=== PATIENT | female | born 1975 | race African-American/Black ===

== ENCOUNTER 2018-06-05 11:24 | Emergency (ER) | payer OTHER ==
[2018-06-05 12:33] LABS: Urine Bacteria 20-50 /HPF (<20); Urine Culture Reflex Order REFLEXED; Urine RBC <5 /HPF (NONE SEEN)
[2018-06-05 12:33] LABS: Absolute Lymphocytes (CBC) 1.7 K/uL (0.7-4.9); Absolute Monocytes 0.8 K/uL (0.1-1.3); Absolute Neutrophil 5.6 K/uL (1.8-8.0); Eosinophils % 2.7 % (0-4.4); Monocytes % 9.4 % (3.3-12.3); RBC Red Blood Cell Count 4.69 M/uL (3.86-4.86)
[2018-06-05 12:38] LABS: BUN Blood Urea Nitrogen 13 mg/dL (7-18); Bicarbonate 29 mmol/L (21-32); Glucose Level 68 mg/dL (74-106); Potassium 3.9 mmol/L (3.5-5.1); Sodium Level 140 mmol/L (136-145)
--- NOTE | 2018-06-05 13:02 | RAD REPORT ---
EXAM DESCRIPTION: US - Transvaginal Study Probe - 06/05/2018 12:54 pm CLINICAL HISTORY: ABD PAIN Pelvic pain. COMPARISON: TRANSVAGINAL STUDY PROBE dated 07/08/2012 FINDINGS: The uterus is normal in size, shape and echotexture. The uterus measures 8.6 x 5.4 x 3.5 c m The endometrial stripe measures 9 mm, normal. Cystic structure is seen in the left adnexa measuring 8.4 x 7.2 x 6.9 cm. This lesion is somewhat poo rly visualized due to bowel gas. Mild tubular structure is seen in the right adnexa raising the possibility of a hydrosalpinx. Neither ovary is well identified sonographically. No significant pelvic ascites. IMPRESSION: Cystic structure in the left adnexa measuring 8 cm is noted, incompletely assessed.Neith er ovary is well visualized. Tubular structure in the right adnexa may represent a hydrosalpinx. Consider CT abdomen pelvis with contrast for further assessment these findings.
[2018-06-05] MEDS ORDERED: AZITHROMYCIN 250 MG TAB ONE (13:54)
[2018-06-05] MEDS ORDERED: LIDOCAINE 1% MPF 5 ML VIAL ONE (13:54)
[2018-06-05] MEDS ORDERED: CEFTRIAXONE 1000 MG/VIAL ONE (13:55)
[2018-06-05] MEDS ORDERED: KETOROLAC 30 MG/ML INJ ONE (13:56)
--- NOTE | 2018-06-05 14:06 | RAD REPORT ---
EXAM DESCRIPTION: CT - Abdomen Pelvis W Contrast - 06/05/2018 1:28 pm CLINICAL HISTORY: Abdominal pain/right-sided pain COMPARISON: June 05, 2017 pelvic ultrasound TECHNIQUE: Computed axial tomography of the abdomen pelvis was obtained. 100 cc Isovue-300 was admin istered intravenously. Oral contrast was not requested which limits evaluation of bowel. All CT scans are performed using dose optimization technique as appropriate and may include automated exposure control or mA/KV adjustment according to patient size. FINDINGS: The liver, spleen, pancreas, adrenal and kidneys appear unremarkable. A 9 centimeter cyst is present within the left adnexa. Left hydrosalpinx is also present. No signific ant free fluid is noted. Essure coils are present. IMPRESSION: 9 centimeter left ovarian cyst with left hydrosalpinx . Followup ultrasound in 3 months is recommended for re-evaluation
--- NOTE | 2018-06-05 14:16 | ER ---
Nurse's Notes [facility] Name: Florentino Chavez Age: 42 yrs Sex: Female : 1975 Arrival Date: 06/05/2018 Time: 11:27 Bed 26 Private MD: Diagnosis: Unspecified ovarian cysts;Urinary tract infection, site not specified;Female pelvic inflammatory disease, unspecified Presentation: 06/05 11:33 Presenting complaint: Patient states: im having pain on the R side of my abd since last hj week; denies fever and chills; reports nausea; denies diarrhea and constipation;. Transition of care: patient was not received from another setting of care. Onset of symptoms was June 05, 2018. Risk Assessment: Do you want to hurt yourself or someone else? Patient reports no desire to harm self or others. Initial Sepsis Screen: Does the patient meet any 2 criteria? No. Patient's initial sepsis screen is negative. Does the patient have a suspected source of infection? No. Patient's initial sepsis screen is negative. Care prior to arrival: None. 11:33 Method Of Arrival: Ambulatory 11:33 Acuity: MARITA 3 hj Triage Assessment: 11:36 General: Appears in no apparent distress. Behavior is calm, cooperative, appropriate hj for age. Pain: Complains of pain in abdomen Pain currently is 9 out of 10 on a pain scale. GI: Reports lower abdominal pain, cramping, nausea. 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 - Social history:: Smoking status: Patient uses tobacco products, Patient/guardian denies using alcohol. - Ebola Screening: : Patient negative for fever greater than or equal to 101.5 degrees Fahrenheit, and additional compatible Ebola Virus Disease symptoms Patient denies exposure to infectious person Patient denies travel to an Ebola-affected area in the 21 days before illness onset. Screenin:36 Abuse screen: Denies threats or abuse. Denies injuries from another. Nutritional hj screening: No deficits noted. Tuberculosis screening: No symptoms or risk factors identified. Fall Risk None identified. Assessment: 11:37 GI: Bowel sounds hj 11:59 General: Appears in no apparent distress. comfortable, Behavior is calm, cooperative, aj appropriate for age. Pain: Complains of pain in suprapubic area and right inguinal area. Neuro: Level of Consciousness is awake, alert, obeys commands, Oriented to person, place, time, situation, Appropriate for age. Respiratory: Airway is patent Respiratory effort is even, unlabored, Respiratory pattern is regular, symmetrical. GI: Abd is soft Abdomen is tender to palpation in suprapubic area, right lower quadrant and left lower quadrant. : Reports burning with urination, discharge, white, yellow, pain in suprapubic area. Derm: Skin is intact, is healthy with good turgor, Skin is pink, warm \T\ dry. normal. Vital Signs: 11:37 BP 145 / 89; Pulse 81; Resp 18; Temp 97.4(TE); Pulse Ox 100% on R/A; Weight 57.61 kg; hj Height 5 ft. 2 in. (157.48 cm); Pain 9/10; 12:44 BP 142 / 98; Pulse 70; Resp 20; Pulse Ox 100% on R/A; aj 14:03 BP 142 / 91; Pulse 72; Resp 20; Pulse Ox 99% on R/A; aj 11:37 Body Mass Index 23.23 (57.61 kg, 157.48 cm) ED Course: 11:27 Patient arrived in ED. mr 11:34 Triage completed. hj 11:37 Arm band placed on left wrist. hj 11:38 Patient has correct armband on for positive identification. Placed in gown. Bed in low hj position. Call light in reach. Side rails up X 1. 11:41 Pauline Nolan, PROSPER is Primary Nurse. aj 11:41 Homa Velez FNP-C is PHCP. kb 11:41 Juan Jose Oconnell MD is Attending Physician. kb 12:18 Inserted saline lock: 22 gauge in right antecubital area, using aseptic technique. aj Blood collected. 12:18 CBC with Diff Sent. aj 12:19 Basic Metabolic Panel Sent. aj 12:19 Urine Microscopic Only Sent. aj 12:19 Urine Culture Sent. aj 12:20 Patient taken to ultrasound. aj 12:48 GC (Aime/Chl) Probe URINE Sent. aj 12:49 CBC with Diff Sent. aj 12:55 US Transvaginal Study (Probe) In Process Unspecified. EDMS 13:25 CT completed. Patient tolerated procedure well. Patient moved to CT via wheelchair. Patient moved back from CT. 13:33 CT Abd/Pelvis - W/Contrast In Process Unspecified. EDMS 14:51 No provider procedures requiring assistance completed. IV discontinued, intact, aj bleeding controlled, No redness/swelling at site. Pressure dressing applied. Administered Medications: 13:36 CANCELLED (Duplicate Order): AZITHromycin 1 grams PO once aj 13:37 CANCELLED (Duplicate Order): TORadol 30 mg IVP once aj 13:38 CANCELLED (order changed): Doxycycline 100 mg PO once aj 13:57 Drug: Zithromax 1 grams Route: PO; aj 14:53 Follow up: Response: No adverse reaction aj 13:57 Drug: Rocephin (cefTRIAXone) 1 grams Route: IM; Site: right gluteus; aj 14:53 Follow up: Response: No adverse reaction aj 13:58 Drug: TORadol 30 mg Route: IVP; Site: right antecubital; aj 14:53 Follow up: Response: No adverse reaction aj Outcome: 14:16 Discharge ordered by . kb 14:51 Discharged to home ambulatory. aj 14:51 Condition: good 14:51 Discharge instructions given to patient, Instructed on discharge instructions, follow up and referral plans. medication usage, safe sex practices, Demonstrated understanding of instructions, follow-up care, medications, Prescriptions given X 2. 14:54 Patient left the ED. aj Signatures: Dispatcher [employer] EDMS Homa Velez, GREASE MAKERShaileshC GREASE MAKER-Pauline Mars RN RN Slime Lopez Susan sj Joaquin, Henry, RN RN hj Corrections: (The following items were deleted from the chart) 11:39 11:37 Pulse 81bpm; Resp 18bpm; Pulse Ox 100% RA; Temp 97.4F Temporal; 57.61 kg; Height hj 5 ft. 2 in.; BMI: 23.2; Pain 9/10; hj 12:45 12:44 BP 166 / 103; Pulse 70bpm; Resp 20bpm; Pulse Ox 100% RA; aj aj
--- NOTE | 2018-06-05 14:17 | EDPHYS ---
Physician Documentation [facility] Name: Florentino Chavez Age: 42 yrs Sex: Female : 1975 Arrival Date: 06/05/2018 Time: 11:27 Bed 26 Private MD: ED Physician Juan Jose Oconnell HPI: 06/05 12:12 This 42 yrs old Black Female presents to ER via Ambulatory with complaints of Abdominal kb Pain. 12:12 The patient presents with abdominal pain right lower quadrant. Onset: The kb symptoms/episode began/occurred 1.5 week(s) ago. The symptoms do not radiate. Associated signs and symptoms: Pertinent positives: dysuria, nausea, Pertinent negatives: anorexia, blood in stools, chest pain, constipation, diarrhea, fever, headache, hematuria, palpitations, shortness of breath, vaginal discharge, vomiting, vomiting blood. The symptoms are described as constant. Modifying factors: The symptoms are alleviated by nothing, the symptoms are aggravated by pressure. Severity of pain: At its worst the pain was moderate in the emergency department the pain is unchanged. The patient has experienced a previous episode. The patient has not recently seen a physician. Pt states she has had RLQ pain for a week and a half. Had appt with PCP at 1100 today, but got there at 1106 and they wouldn't see her so she came here to be evaluated. Reports nausea and dysuria that started this morning. Denies fever. . 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 - Social history:: Smoking status: Patient uses tobacco products, Patient/guardian denies using alcohol. - Ebola Screening: : Patient negative for fever greater than or equal to 101.5 degrees Fahrenheit, and additional compatible Ebola Virus Disease symptoms Patient denies exposure to infectious person Patient denies travel to an Ebola-affected area in the 21 days before illness onset. ROS: 12:12 Constitutional: Negative for fever, chills, and weight loss, ENT: Negative for injury, kb pain, and discharge, Neck: Negative for injury, pain, and swelling, Cardiovascular: Negative for chest pain, palpitations, and edema, Respiratory: Negative for shortness of breath, cough, wheezing, and pleuritic chest pain, Back: Negative for injury and pain, MS/Extremity: Negative for injury and deformity, Skin: Negative for injury, rash, and discoloration, Neuro: Negative for headache, weakness, numbness, tingling, and seizure. 12:12 Abdomen/GI: Positive for abdominal pain, nausea, Negative for vomiting, diarrhea, constipation, abdominal cramps, abdominal distension, anorexia. 12:12 : Positive for burning with urination. Exam: 12:15 Constitutional: This is a well developed, well nourished patient who is awake, alert, kb and in no acute distress. Head/Face: Normocephalic, atraumatic. ENT: Nares patent. No nasal discharge, no septal abnormalities noted. Tympanic membranes are normal and external auditory canals are clear. Oropharynx with no redness, swelling, or masses, exudates, or evidence of obstruction, uvula midline. Mucous membranes moist. Neck: Trachea midline, no thyromegaly or masses palpated, and no cervical lymphadenopathy. Supple, full range of motion without nuchal rigidity, or vertebral point tenderness. No Meningismus. Chest/axilla: Normal chest wall appearance and motion. Nontender with no deformity. No lesions are appreciated. Cardiovascular: Regular rate and rhythm with a normal S1 and S2. No gallops, murmurs, or rubs. Normal PMI, no JVD. No pulse deficits. Respiratory: Lungs have equal breath sounds bilaterally, clear to auscultation and percussion. No rales, rhonchi or wheezes noted. No increased work of breathing, no retractions or nasal flaring. Back: No spinal tenderness. No costovertebral tenderness. Full range of motion. Skin: Warm, dry with normal turgor. Normal color with no rashes, no lesions, and no evidence of cellulitis. MS/ Extremity: Pulses equal, no cyanosis. Neurovascular intact. Full, normal range of motion. Neuro: Awake and alert, GCS 15, oriented to person, place, time, and situation. Cranial nerves II-XII grossly intact. Motor strength 5/5 in all extremities. Sensory grossly intact. Cerebellar exam normal. Normal gait. 12:15 Abdomen/GI: Inspection: abdomen appears normal, Bowel sounds: normal, Palpation: soft, in all quadrants, mild abdominal tenderness, in the right lower quadrant and left lower quadrant, moderate abdominal tenderness, in the suprapubic area. Vital Signs: 11:37 BP 145 / 89; Pulse 81; Resp 18; Temp 97.4(TE); Pulse Ox 100% on R/A; Weight 57.61 kg; hj Height 5 ft. 2 in. (157.48 cm); Pain 9/10; 12:44 BP 142 / 98; Pulse 70; Resp 20; Pulse Ox 100% on R/A; aj 14:03 BP 142 / 91; Pulse 72; Resp 20; Pulse Ox 99% on R/A; aj 11:37 Body Mass Index 23.23 (57.61 kg, 157.48 cm) hj MDM: 11:41 Patient medically screened. kb 12:15 Data reviewed: vital signs, nurses notes. Data interpreted: Pulse oximetry: on room air kb is 100 %. Interpretation: normal. 14:12 Counseling: I had a detailed discussion with the patient and/or guardian regarding: the kb historical points, exam findings, and any diagnostic results supporting the discharge/admit diagnosis, lab results, radiology results, the need for outpatient follow up, an OB/Gyne specialist, to return to the emergency department if symptoms worsen or persist or if there are any questions or concerns that arise at home. 06/05 11:52 Order name: CBC with Diff; Complete Time: 12:58 kb 06/05 11:52 Order name: Basic Metabolic Panel; Complete Time: 12:39 kb 06/05 11:58 Order name: Urine Microscopic Only; Complete Time: 12:36 iw 06/05 11:58 Order name: Urine Culture iw 06/05 12:25 Order name: Urine Dipstick--Ancillary (enter results) iw 06/05 12:36 Order name: GC (Aime/Chl) Probe URINE EDMS 06/05 11:52 Order name: US Transvaginal Study (Probe); Complete Time: 13:09 kb 06/05 13:10 Order name: CT Abd/Pelvis - W/Contrast; Complete Time: 14:08 kb 06/05 11:52 Order name: Urine Dipstick-Ancillary (obtain specimen); Complete Time: 12:18 kb 06/05 11:52 Order name: Urine Test (obtain specimen); Complete Time: 12:18 kb 06/05 11:52 Order name: IV Start; Complete Time: 12:18 kb Administered Medications: 13:36 CANCELLED (Duplicate Order): AZITHromycin 1 grams PO once aj 13:37 CANCELLED (Duplicate Order): TORadol 30 mg IVP once aj 13:38 CANCELLED (order changed): Doxycycline 100 mg PO once aj 13:57 Drug: Zithromax 1 grams Route: PO; aj 14:53 Follow up: Response: No adverse reaction aj 13:57 Drug: Rocephin (cefTRIAXone) 1 grams Route: IM; Site: right gluteus; aj 14:53 Follow up: Response: No adverse reaction aj 13:58 Drug: TORadol 30 mg Route: IVP; Site: right antecubital; aj 14:53 Follow up: Response: No adverse reaction aj Disposition: 17:58 Co-signature as Attending Physician, Juan Jose Oconnell MD Available for consultation at ps1 all times. . Disposition: 06/05/18 14:16 Discharged to Home. Impression: Unspecified ovarian cysts, Urinary tract infection, site not specified, Female pelvic inflammatory disease, unspecified. - Condition is Stable. - Discharge Instructions: Urinary Tract Infection, Adult, [id number], Ovarian Cyst, [id number], Pelvic Inflammatory Disease, [id number]-[id number]. - Prescriptions for Doxycycline Hyclate 100 mg Oral Tablet - take 1 tablet by ORAL route every 12 hours; 20 tablet. Diclofenac Sodium 75 mg Oral Tablet, Delayed Release (E.C.) - take 1 tablet by ORAL route 2 times per day As needed; 30 tablet. - Medication Reconciliation Form, Thank You Letter, Antibiotic Education, Prescription Opioid Use form. - Follow up: Emergency Department; When: As needed; Reason: Worsening of condition. Follow up: Private Physician; When: 2 - 3 days; Reason: Recheck today's complaints, Continuance of care, Re-evaluation by your physician. Signatures: Dispatcher [employer] Homa Alejo, ROSELINE CROSS-Pauline Mars RN RN aj Joaquin, Henry, RN RN hj Singer, Phillip, MD MD ps1 Corrections: (The following items were deleted from the chart) 13:36 13:36 AZITHromycin 1 grams PO once ordered. aj aj 13:37 13:36 TORadol 30 mg IVP once ordered. aj aj 13:38 13:36 Doxycycline 100 mg PO once ordered. aj aj 14:19 14:16 06/05/2018 14:16 Discharged to Home. Impression: Unspecified ovarian cysts; kb Urinary tract infection, site not specified. Condition is Stable. Forms are Medication Reconciliation Form, Thank You Letter, Antibiotic Education, Prescription Opioid Use. Follow up: Emergency Department; When: As needed; Reason: Worsening of condition. Follow up: Private Physician; When: 2 - 3 days; Reason: Recheck today's complaints, Continuance of care, Re-evaluation by your physician. kb 14:54 14:19 06/05/2018 14:16 Discharged to Home. Impression: Unspecified ovarian cysts; aj Urinary tract infection, site not specified; Female pelvic inflammatory disease, unspecified. Condition is Stable. Discharge Instructions: Urinary Tract Infection, Adult, [id number], Ovarian Cyst, [id number], Pelvic Inflammatory Disease, [id number]. Prescriptions for Doxycycline Hyclate 100 mg Oral Tablet - take 1 tablet by ORAL route every 12 hours; 20 tablet, Diclofenac Sodium 75 mg Oral Tablet, Delayed Release (E.C.) - take 1 tablet by ORAL route 2 times per day As needed; 30 tablet. and Forms are Medication Reconciliation Form, Thank You Letter, Antibiotic Education, Prescription Opioid Use. Follow up: Emergency Department; When: As needed; Reason: Worsening of condition. Follow up: Private Physician; When: 2 - 3 days; Reason: Recheck today's complaints, Continuance of care, Re-evaluation by your physician. kb
[2018-06-05 15:17] VITALS: TEMP 97.4
[2018-06-05 15:20] VITALS: BP 142/91; O2SAT 99
[2018-06-05 15:46] LABS: Urine Blood TRACE (NEG); Urine Glucose NEGATIVE (NEG); Urine Protein NEGATIVE (NEG)
[2018-06-08 04:09] LABS: C.trachomatis RNA,TMA Not Detected (Not Detected)
== END 2018-06-05 14:54 | disposition home or self-care (01) ==
LOC: ER 11:24
DX: N83.202 Unspecified ovarian cyst, left side (principal); N73.9 Female pelvic inflammatory disease, unspecified; N39.0 Urinary tract infection, site not specified; I10 Essential (primary) hypertension; Z88.0 Allergy status to penicillin
CPT/HCPCS: 36415; 74177; 76830; 80048; 81003; 81015; 85025; 87086; 87088; 87490; 87590; 96372; 96374; 99284; Q9967

== ENCOUNTER 2018-08-11 15:06 | Emergency (ER) | payer OTHER ==
--- OUTSIDE RECORDS SUMMARY | 2018-08-11 15:08 | XMS REPORT ---
:1975 [facility] Address [address] [place] [address] Care Team Providers Name Role Phone Unavailable Unavailable Unavailable Problems This patient has no known problems. Allergies, Adverse Reactions, Alerts This patient has no known allergies or adverse reactions. Medications This patient has no known medications.
[2018-08-11] MEDS ORDERED: NA CHLORIDE 0.9% 1,000 ML ONE (16:39)
[2018-08-11 17:05] LABS: Absolute Lymphocytes (CBC) 0.5 K/uL (0.7-4.9); Absolute Monocytes 0.6 K/uL (0.1-1.3); Absolute Neutrophil 8.4 K/uL (1.8-8.0); Basophils % 0.5 % (0-1.3); Hematocrit 46.6 % (36.0-45.0); Lymphocytes % 4.8 % (15.3-44.8); MPV 9.2 fL (7.6-11.3); Monocytes % 6.5 % (3.3-12.3); RBC Red Blood Cell Count 5.35 M/uL (3.86-4.86)
--- NOTE | 2018-08-11 17:16 | RAD REPORT ---
EXAM DESCRIPTION: Shannan Single View08/11/2018 4:41 pm CLINICAL HISTORY: Chest pain COMPARISON: 2012 FINDINGS: The lungs appear clear of acute infiltrate. The heart is normal size IMPRESSION: No acute abnormalities displayed
[2018-08-11 17:21] LABS: Protime INR 1.08
[2018-08-11 17:22] LABS: ALT/SGPT 13 U/L (12-78); AST/SGOT 15 U/L (15-37); Albumin 4.5 g/dL (3.4-5.0); Alkaline Phosphatase 105 U/L (45-117); BUN Blood Urea Nitrogen 10 mg/dL (7-18); Bicarbonate 25 mmol/L (21-32); Bilirubin Direct 0.1 mg/dL (0-0.2); Bilirubin Total 0.4 mg/dL (0.2-1.0); Glucose Level 89 mg/dL (74-106); Magnesium 2.1 mg/dL (1.8-2.4); NT PRO-BNP 21 pg/mL (<125); Potassium 3.2 mmol/L (3.5-5.1); Protein, Total 9.2 g/dL (6.4-8.2); Sodium Level 133 mmol/L (136-145); Troponin (Emerg Dept Use Only) < 0.02 ng/mL (0.0-0.045)
[2018-08-11] MEDS ORDERED: FENTANYL CITR 100 MCG/2 ML ONE (18:24)
[2018-08-11] MEDS ORDERED: POTASSIUM CL SA 10 MEQ TAB PO ONE (18:24)
[2018-08-11] MEDS ORDERED: MEPERIDINE HCL 25 MG/0.5 ML ONE (18:56)
[2018-08-11] MEDS ORDERED: ONDANSETRON 4 MG/2 ML VIAL ONE (18:56)
[2018-08-11 19:35] LABS: Blood Morphology Comment NOT SEEN (NOT SEEN); Platelet Estimate ADEQ
--- NOTE | 2018-08-11 20:01 | ER ---
Nurse's Notes [facility] Name: Florentino Chavez Age: 42 yrs Sex: Female : 1975 Arrival Date: 08/11/2018 Time: 15:10 Bed 28 Private MD: Brandon Guardado E Diagnosis: Viral infection, unspecified;Atypical Chest pain Presentation: 08/11 15:28 Presenting complaint: Patient states: midsternal CP radiating through back, constant iw pain, also has vomiting, diarrhea, body aches X 3 days, denies cough, congestion. Transition of care: patient was not received from another setting of care. Onset of symptoms was August 08, 2018. Risk Assessment: Do you want to hurt yourself or someone else? Patient reports no desire to harm self or others. Initial Sepsis Screen: Does the patient meet any 2 criteria? No. Patient's initial sepsis screen is negative. Does the patient have a suspected source of infection? No. Patient's initial sepsis screen is negative. Care prior to arrival: None. 15:28 Method Of Arrival: Ambulatory iw 15:28 Acuity: MARITA 3 iw Triage Assessment: 18:20 Headache History: The patient has had previous headaches and this one is similar to mg2 previous episodes. General: Behavior is calm, cooperative. Pain: Also complains of no other associated symptoms. Pain: Complains of pain in whole body. 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 - Ebola Screening: : Patient negative for fever greater than or equal to 101.5 degrees Fahrenheit, and additional compatible Ebola Virus Disease symptoms Patient denies exposure to infectious person Patient denies travel to an Ebola-affected area in the 21 days before illness onset No symptoms or risks identified at this time. - Social history:: Smoking status: unknown. Screenin:19 Abuse screen: Denies threats or abuse. Denies injuries from another. Nutritional mg2 screening: No deficits noted. Tuberculosis screening: No symptoms or risk factors identified. Fall Risk IV access (20 points). Assessment: 18:17 General: Appears in no apparent distress. comfortable, Behavior is calm, cooperative. mg2 Pain: Complains of pain in chest and abdomen Pain does not radiate. Pain currently is 6 out of 10 on a pain scale. Quality of pain is described as aching, Pain began gradually, 1 day ago. Is intermittent. Neuro: Level of Consciousness is awake, alert, obeys commands, Oriented to person, place, time, situation. Neuro: Reports weakness. Cardiovascular: Capillary refill < 3 seconds Patient's skin is warm and dry. Respiratory: Reports cough that is congestion Airway is patent Respiratory effort is even, unlabored, Respiratory pattern is regular, symmetrical. GI: Reports diarrhea, vomiting. : No signs and/or symptoms were reported regarding the genitourinary system. EENT: No signs and/or symptoms were reported regarding the EENT system. Derm: Skin is intact, is healthy with good turgor, Skin is pink, warm \T\ dry. normal. Musculoskeletal: Circulation, motion, and sensation intact. Capillary refill < 3 seconds. 20:32 Reassessment: Patient denies pain at this time. Patient states feeling better. Patient mg2 states symptoms have improved. Vital Signs: 15:30 BP 121 / 96; Pulse 100; Resp 16; Temp 98.6; Pulse Ox 100% on R/A; Weight 58.97 kg; iw Height 5 ft. 2 in. (157.48 cm); Pain 9/10; 17:09 BP 141 / 89; Pulse 82; Resp 16; Pulse Ox 100% ; lt1 18:22 BP 122 / 89; Pulse 89; Resp 18; Pulse Ox 100% on R/A; Pain 4/10; mg2 20:32 BP 123 / 78; Pulse 80; Resp 18; Pulse Ox 100% on R/A; Pain 0/10; mg2 15:30 Body Mass Index 23.78 (58.97 kg, 157.48 cm) iw ED Course: 15:10 Patient arrived in ED. as 15:11 Brandon Guardado MD is Private Physician. as 15:29 Triage completed. iw 16:00 Shaun Mckeon PA is PHCP. jr8 16:00 Alonso Briscoe MD is Attending Physician. jr8 16:15 Spenser Sawyer RN is Primary Nurse. mg2 16:34 EKG done, by technician anatomic pathology. reviewed by Shaun RIVERA. 3 16:39 X-ray completed. Portable x-ray completed in exam room. Patient tolerated procedure ml well. 16:42 XRAY Chest (1 view) In Process Unspecified. EDMS 18:19 No provider procedures requiring assistance completed. Inserted saline lock: 20 gauge mg2 in left antecubital area, using aseptic technique. Blood collected. 18:19 Patient has correct armband on for positive identification. Pulse ox on. NIBP on. Door mg2 closed. Warm blanket given. 18:20 Arm band placed on. mg2 20:00 Brandon Guardado MD is Referral Physician. jr8 20:32 IV discontinued, intact, bleeding controlled, No redness/swelling at site. Pressure mg2 dressing applied. Administered Medications: 16:43 Drug: NS 0.9% 1000 ml Route: IV; Rate: 1000 ml; Site: left femoral; mg2 18:49 Follow up: Response: No adverse reaction; IV Status: Completed infusion mg2 18:17 Drug: fentaNYL (PF) 25 mcg Route: IVP; Site: left antecubital; mg2 18:49 Follow up: Response: No adverse reaction; Marked relief of symptoms mg2 18:17 Drug: Potassium Chloride 40 mEq Route: PO; mg2 18:49 Follow up: Response: No adverse reaction; Marked relief of symptoms mg2 18:48 Drug: Zofran 4 mg Route: IVP; Site: left antecubital; mg2 20:33 Follow up: Response: No adverse reaction; Marked relief of symptoms mg2 18:49 Drug: Demerol 25 mg Route: IVP; Site: left antecubital; mg2 20:33 Follow up: Response: No adverse reaction; Marked relief of symptoms mg2 Outcome: 20:01 Discharge ordered by . jr8 20:32 Discharged to home ambulatory. mg2 20:32 Condition: stable 20:32 Discharge instructions given to patient, Instructed on discharge instructions, follow up and referral plans. medication usage, Demonstrated understanding of instructions, follow-up care, medications, Prescriptions given X 3. 20:33 Patient left the ED. mg2 Signatures: Dispatcher [employer] EDMS Evelia Rizo Irene, RN RN iw Lopez, Melissa ml Roszak, Josh, PA PA jr8 Spenser Sawyer, RN RN mg2 Ofelia Collier sm3 Tete Olivarez 1
--- NOTE | 2018-08-11 20:01 | EDPHYS ---
Physician Documentation [facility] Name: Florentino Chavez Age: 42 yrs Sex: Female : 1975 Arrival Date: 08/11/2018 Time: 15:10 Bed 28 Private MD: Brandon Guardado E ED Physician Alonso Briscoe HPI: 08/11 19:27 This 42 yrs old Black Female presents to ER via Ambulatory with complaints of Headache, jr8 Chest Congestion, Back Pain, Vomiting/Diarrhea. 19:27 Patient stated that her child was ill recently and had chest pain and body aches. jr8 Stated that she now is having chest pain going to back, whole body hurts, and is having n/v/d . Severity of symptoms: At their worst the symptoms were moderate in the emergency department the symptoms are unchanged. The patient has not experienced similar symptoms in the past. The patient has not recently seen a physician. 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 - Ebola Screening: : Patient negative for fever greater than or equal to 101.5 degrees Fahrenheit, and additional compatible Ebola Virus Disease symptoms Patient denies exposure to infectious person Patient denies travel to an Ebola-affected area in the 21 days before illness onset No symptoms or risks identified at this time. - Social history:: Smoking status: unknown. ROS: 19:27 Eyes: Negative for injury, pain, redness, and discharge, ENT: Negative for injury, jr8 pain, and discharge, Neck: Negative for injury, pain, and swelling, Respiratory: Negative for shortness of breath, cough, wheezing, and pleuritic chest pain, Back: Negative for injury and pain, MS/Extremity: Negative for injury and deformity, Skin: Negative for injury, rash, and discoloration. 19:27 Cardiovascular: Positive for chest pain, Negative for edema, orthopnea, palpitations, paroxysmal nocturnal dyspnea. 19:27 Respiratory: Positive for cough, Negative for dyspnea on exertion, shortness of breath, sputum production, wheezing. 19:27 Abdomen/GI: Positive for nausea, vomiting, and diarrhea, abdominal cramps, Negative for abdominal pain, abdominal distension, anorexia, dysphagia, hematemesis, black/tarry stool, rectal pain, rectal bleeding, bowel incontinence, flatulence. 19:27 Neuro: Positive for headache. Exam: 19:27 Eyes: Pupils equal round and reactive to light, extra-ocular motions intact. Lids and jr8 lashes normal. Conjunctiva and sclera are non-icteric and not injected. Cornea within normal limits. Periorbital areas with no swelling, redness, or edema. ENT: Nares patent. No nasal discharge, no septal abnormalities noted. Tympanic membranes are normal and external auditory canals are clear. Oropharynx with no redness, swelling, or masses, exudates, or evidence of obstruction, uvula midline. Mucous membranes moist. Neck: Trachea midline, no thyromegaly or masses palpated, and no cervical lymphadenopathy. Supple, full range of motion without nuchal rigidity, or vertebral point tenderness. No Meningismus. Cardiovascular: Regular rate and rhythm with a normal S1 and S2. No gallops, murmurs, or rubs. Normal PMI, no JVD. No pulse deficits. Respiratory: Lungs have equal breath sounds bilaterally, clear to auscultation and percussion. No rales, rhonchi or wheezes noted. No increased work of breathing, no retractions or nasal flaring. Abdomen/GI: Soft, non-tender, with normal bowel sounds. No distension or tympany. No guarding or rebound. No evidence of tenderness throughout. Back: No spinal tenderness. No costovertebral tenderness. Full range of motion. Skin: Warm, dry with normal turgor. Normal color with no rashes, no lesions, and no evidence of cellulitis. MS/ Extremity: Pulses equal, no cyanosis. Neurovascular intact. Full, normal range of motion. Neuro: Awake and alert, GCS 15, oriented to person, place, time, and situation. Cranial nerves II-XII grossly intact. Motor strength 5/5 in all extremities. Sensory grossly intact. Cerebellar exam normal. Normal gait. Vital Signs: 15:30 BP 121 / 96; Pulse 100; Resp 16; Temp 98.6; Pulse Ox 100% on R/A; Weight 58.97 kg; iw Height 5 ft. 2 in. (157.48 cm); Pain 9/10; 17:09 BP 141 / 89; Pulse 82; Resp 16; Pulse Ox 100% ; lt1 18:22 BP 122 / 89; Pulse 89; Resp 18; Pulse Ox 100% on R/A; Pain 4/10; mg2 20:32 BP 123 / 78; Pulse 80; Resp 18; Pulse Ox 100% on R/A; Pain 0/10; mg2 15:30 Body Mass Index 23.78 (58.97 kg, 157.48 cm) iw MDM: 16:00 Patient medically screened. jr8 20:00 Data reviewed: vital signs, nurses notes, lab test result(s), EKG, radiologic studies, jr8 plain films. Data interpreted: Pulse oximetry: on room air is 100 %. Interpretation: normal. Counseling: I had a detailed discussion with the patient and/or guardian regarding: the historical points, exam findings, and any diagnostic results supporting the discharge/admit diagnosis, lab results, radiology results, the need for outpatient follow up, a family practitioner, to return to the emergency department if symptoms worsen or persist or if there are any questions or concerns that arise at home. Response to treatment: the patient's symptoms have markedly improved after treatment, patient is well hydrated. 08/11 16:22 Order name: Basic Metabolic Panel [facility] 08/11 16:22 Order name: CBC with Diff [facility] 08/11 16:22 Order name: LFT's [facility] 08/11 16:22 Order name: Magnesium; Complete Time: 18: [facility] 08/11 16:22 Order name: NT PRO-BNP; Complete Time: 18: [facility] 08/11 16:22 Order name: PT-INR; Complete Time: 18:01 [facility] 08/11 16:22 Order name: Troponin (emerg Dept Use Only); Complete Time: 18: [facility] 08/11 16:22 Order name: XRAY Chest (1 view); Complete Time: 18:01 [facility] 08/11 16:22 Order name: Flu; Complete Time: 18:01 [facility] 08/11 16:23 Order name: Basic Metabolic Panel; Complete Time: 18:01 EDMS 08/11 16:23 Order name: CBC with Automated Diff; Complete Time: 20:00 EDMS 08/11 16:23 Order name: Liver (Hepatic) Function; Complete Time: 18:01 EDLA 08/11 19:35 Order name: Manual Differential; Complete Time: 20:00 [facility] 08/11 16:22 Order name: EKG; Complete Time: 16:23 [facility] 08/11 16:22 Order name: Cardiac monitoring; Complete Time: 16:44 [facility] 08/11 16:22 Order name: EKG - Nurse/Tech; Complete Time: : [facility] 08/11 16:22 Order name: IV Saline Lock; Complete Time: : jr8 08/11 16:22 Order name: Labs collected and sent; Complete Time: : [facility] 08/11 16:22 Order name: O2 Per Protocol; Complete Time: [facility] 08/11 16:22 Order name: O2 Sat Monitoring; Complete Time: : jr Administered Medications: 16:43 Drug: NS 0.9% 1000 ml Route: IV; Rate: 1000 ml; Site: left femoral; mg2 18:49 Follow up: Response: No adverse reaction; IV Status: Completed infusion mg2 18:17 Drug: fentaNYL (PF) 25 mcg Route: IVP; Site: left antecubital; mg2 18:49 Follow up: Response: No adverse reaction; Marked relief of symptoms mg2 18:17 Drug: Potassium Chloride 40 mEq Route: PO; mg2 18:49 Follow up: Response: No adverse reaction; Marked relief of symptoms mg2 18:48 Drug: Zofran 4 mg Route: IVP; Site: left antecubital; mg2 20:33 Follow up: Response: No adverse reaction; Marked relief of symptoms mg2 18:49 Drug: Demerol 25 mg Route: IVP; Site: left antecubital; mg2 20:33 Follow up: Response: No adverse reaction; Marked relief of symptoms mg2 Disposition: 08/11/18 20:01 Discharged to Home. Impression: Viral infection, unspecified, Atypical Chest pain. - Condition is Stable. - Discharge Instructions: Viral Gastroenteritis, Adult. - Prescriptions for Bentyl 20 mg Oral Tablet - take 1 tablet by ORAL route every 6 hours As needed; 20 tablet. Tramadol 50 mg Oral Tablet - take 1 tablet by ORAL route every 8 hours as needed; 12 tablet. promethazine 25 mg Oral Tablet - take 1 tablet by ORAL route every 6 hours As needed; 20 tablet. - Medication Reconciliation Form, Thank You Letter, Antibiotic Education, Prescription Opioid Use form. - Follow up: Brandon Guardado MD; When: 1 - 2 days; Reason: Recheck today's complaints, Continuance of care, Re-evaluation by your physician. - Problem is new. - Symptoms have improved. Addendum: 08/14/2018 10:15 Co-signature as Attending Physician, Alonso Briscoe MD I agree with the assessment and c kaminski plan of care. Signatures: Dispatcher [employer] EDLA Alonso Briscoe MD MD cha Williams, Irene, PROSPER RN iw Shaun Mckeon PA PA jr8 Spenser Sawyer RN RN mg2 Corrections: (The following items were deleted from the chart) 08/11 20:01 20:01 08/11/2018 20:01 Discharged to Home. Impression: Viral infection, unspecified. jr8 Condition is Stable. Forms are Medication Reconciliation Form, Thank You Letter, Antibiotic Education, Prescription Opioid Use. Follow up: Brandon Guardado; When: 1 - 2 days; Reason: Recheck today's complaints, Continuance of care, Re-evaluation by your physician. Problem is new. Symptoms have improved. jr8 20:33 20:01 08/11/2018 20:01 Discharged to Home. Impression: Viral infection, unspecified; mg2 Atypical Chest pain. Condition is Stable. Forms are Medication Reconciliation Form, Thank You Letter, Antibiotic Education, Prescription Opioid Use. Follow up: Brandon Guardado; When: 1 - 2 days; Reason: Recheck today's complaints, Continuance of care, Re-evaluation by your physician. Problem is new. Symptoms have improved. jr8
[2018-08-11 20:47] VITALS: TEMP 98.6; O2SAT 100
[2018-08-11 20:52] VITALS: BP 123/78
--- NOTE | 2018-08-11 21:15 | EKG ---
Test Date: 2018-08-11 Test Time: 16:26:04 Salt Maker: WAYNE MEASUREMENT RESULTS: Intervals: Rate: 92 WY: 132 QRSD: 74 QT: 330 QTc: 408 [place]: P: 60 WY: 132 QRS: 55 T: 29 INTERPRETIVE STATEMENTS: Normal sinus rhythm Normal ECG Compared to ECG 05/10/2013 13:54:22 No significant changes Electronically Signed On 08-11-18 21:14:36 CDT by Zbigniew Ralph
== END 2018-08-11 20:33 | disposition home or self-care (01) ==
LOC: ER 15:06
DX: R07.89 Other chest pain (principal); R51 Headache; I10 Essential (primary) hypertension; Z88.0 Allergy status to penicillin; B34.9 Viral infection, unspecified
CPT/HCPCS: 36415; 71045; 80048; 80076; 83735; 83880; 84484; 85025; 85610; 87804; 93005; 96361; 96374; 96375; 99284; J2175; J2405; J3010; J7030

== ENCOUNTER 2019-10-10 14:22 | Emergency (ER) | payer OTHER ==
--- OUTSIDE RECORDS SUMMARY | 2019-10-10 15:42 | XMS REPORT ---
:1975 Author Organization [facility] t Address [address] [place] [address] Care Team Providers Name Role Phone Pool, Resident Attending Clinician Unavailable Ignacio CROSS Attending Clinician Doctor Unassigned, Name Attending Clinician Unavailable Problems This patient has no known problems. Allergies, Adverse Reactions, Alerts This patient has no known allergies or adverse reactions. Medications This patient has no known medications. Procedures This patient has no known procedures. Encounters Start End Encounter Admission Attending Care Care Encounter Source Date/Time Date/Time Type Type Clinicians Facility Department ID 2019-08-28 2019-08-28 [facility] [id number] 07:21:41 07:36:41 co Visit [facility] [id number] [facility] [id number] 2019-08-21 2019-08-21 Telephone Ignacio [place] [id number] 00:00:00 00:00:00 [facility] [id number] [facility] [id number] 2019-08-01 2019-08-01 Telephone Ignacio [facility] [id number] 00:00:00 00:00:00 [facility] [id number] [facility] [id number] 2019-04-18 2019-04-18 Orders Doctor DEEJAY [id number] 00:00:00 00:00:00 Only Unassigned, OG [id number] [place] [id number] Results This patient has no known results.
[2019-10-10] MEDS ORDERED: METOCLOPRAMIDE 10 MG/2mL INJ ONE (16:34)
[2019-10-10] MEDS ORDERED: DIPHENHYDRAMINE 50 MG/ML VIAL ONE (16:34)
[2019-10-10] MEDS ORDERED: KETOROLAC 30 MG/ML INJ ONE (16:35)
[2019-10-10] MEDS ORDERED: NA CHLORIDE 0.9% 1,000 ML ONE (16:35)
[2019-10-10 16:56] LABS: Absolute Lymphocytes (CBC) 2.4 K/uL (0.7-4.9); Basophils % 1.3 % (0-1.3); Hematocrit 39.8 % (36.0-45.0); Lymphocytes % 37.8 % (15.3-44.8); MPV 8.4 fL (7.6-11.3); RBC Red Blood Cell Count 4.72 M/uL (3.86-4.86)
[2019-10-10 17:08] LABS: BUN Blood Urea Nitrogen 9 mg/dL (7-18); Bicarbonate 26 mmol/L (21-32); Glucose Level 88 mg/dL (74-106); Potassium 3.5 mmol/L (3.5-5.1); Sodium Level 138 mmol/L (136-145)
--- NOTE | 2019-10-10 18:01 | EDPHYS ---
Physician Documentation [facility] Name: Florentino Chavez Age: 44 yrs Sex: Female : 1975 Arrival Date: 10/10/2019 Time: 14:24 Bed 13 Private MD: ED Physician Jason Clements HPI: 10/09 16:39 This 44 yrs old Black Female presents to ER via Ambulatory with complaints of Headache, kb Shortness Of Breath. 16:39 The patient or guardian reports difficulty breathing, flu symptoms, low-grade fever, kb myalgias. Onset: The symptoms/episode began/occurred 3 day(s) ago. Severity of symptoms: At their worst the symptoms were moderate, in the emergency department the symptoms are unchanged. Modifying factors: The symptoms are alleviated by nothing, the symptoms are aggravated by nothing. Associated signs and symptoms: Pertinent positives: fever, nausea. The patient has not experienced similar symptoms in the past. The patient has not recently seen a physician. Pt reports nausea, headache, trouble taking full breath, malaise and fever for 3 days. Fever resolved yesterday. States "I had the flu once and I kind of feel like that.". 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 - Social history:: Smoking status: Patient reports the use of cigarette tobacco products, denies chronic smoking, but will smoke occasionally. ROS: 16:37 Neck: Negative for injury, pain, and swelling, Cardiovascular: Negative for chest pain, kb palpitations, and edema, Back: Negative for injury and pain, MS/Extremity: Negative for injury and deformity, Skin: Negative for injury, rash, and discoloration. 16:37 Constitutional: Positive for fever, malaise. 16:37 ENT: Positive for hoarseness. 16:37 Respiratory: Positive for "it's not shortness of breath, but it feels like I can't take a full breath". 16:37 Abdomen/GI: Positive for nausea, Negative for abdominal pain, vomiting, diarrhea. 16:37 Neuro: Positive for headache. Exam: 16:39 Constitutional: This is a well developed, well nourished patient who is awake, alert, kb and in no acute distress. Head/Face: Normocephalic, atraumatic. ENT: Nares patent. No nasal discharge, no septal abnormalities noted. Tympanic membranes are normal and external auditory canals are clear. Oropharynx with no redness, swelling, or masses, exudates, or evidence of obstruction, uvula midline. Mucous membranes moist. Neck: Trachea midline, no thyromegaly or masses palpated, and no cervical lymphadenopathy. Supple, full range of motion without nuchal rigidity, or vertebral point tenderness. No Meningismus. Chest/axilla: Normal chest wall appearance and motion. Nontender with no deformity. No lesions are appreciated. Cardiovascular: Regular rate and rhythm with a normal S1 and S2. No gallops, murmurs, or rubs. Normal PMI, no JVD. No pulse deficits. Respiratory: Lungs have equal breath sounds bilaterally, clear to auscultation and percussion. No rales, rhonchi or wheezes noted. No increased work of breathing, no retractions or nasal flaring. Abdomen/GI: Soft, non-tender, with normal bowel sounds. No distension or tympany. No guarding or rebound. No evidence of tenderness throughout. Back: No spinal tenderness. No costovertebral tenderness. Full range of motion. Skin: Warm, dry with normal turgor. Normal color with no rashes, no lesions, and no evidence of cellulitis. MS/ Extremity: Pulses equal, no cyanosis. Neurovascular intact. Full, normal range of motion. Neuro: Awake and alert, GCS 15, oriented to person, place, time, and situation. Cranial nerves II-XII grossly intact. Motor strength 5/5 in all extremities. Sensory grossly intact. Cerebellar exam normal. Normal gait. Vital Signs: 14:48 BP 145 / 94; Pulse 78; Resp 15 S; Temp 97.4(TE); Pulse Ox 100% on R/A; Weight 58.97 kg ca1 (R); Height 5 ft. 2 in. (157.48 cm) (R); Pain 9/10; 16:50 BP 135 / 97; Pulse 84; Resp 16; Pulse Ox 100% ; bp 17:59 BP 124 / 90; Pulse 66; Resp 17; Pulse Ox 100% ; bp 14:48 Body Mass Index 23.78 (58.97 kg, 157.48 cm) ca1 MDM: 16:06 Patient medically screened. kb 16:35 Data reviewed: vital signs, nurses notes. Data interpreted: Pulse oximetry: on room air kb is 100 %. Interpretation: normal. 17:57 Counseling: I had a detailed discussion with the patient and/or guardian regarding: the kb historical points, exam findings, and any diagnostic results supporting the discharge/admit diagnosis, lab results, radiology results, the need for outpatient follow up, a family practitioner, to return to the emergency department if symptoms worsen or persist or if there are any questions or concerns that arise at home. 10/09 16:16 Order name: Flu; Complete Time: 17:19 kb 10/09 16:16 Order name: Strep; Complete Time: 17:19 kb 10/09 16:16 Order name: CBC with Diff; Complete Time: 17:14 kb 10/09 16:16 Order name: Basic Metabolic Panel; Complete Time: 17:14 kb 10/09 16:16 Order name: Chest Pa And Lat (2 Views) XRAY kb 10/09 17:18 Order name: Throat Culture EDAZ 10/09 16:16 Order name: IV Start; Complete Time: 16:52 kb Administered Medications: 16:30 Drug: NS 0.9% 1000 ml Route: IV; Rate: 1000 ml; Site: left antecubital; bp 18:22 Follow up: IV Status: Completed infusion; IV Intake: 1000ml bp 16:30 Drug: TORadol - Ketorolac 15 mg Route: IVP; Site: left antecubital; bp 18:23 Follow up: Response: Pain is decreased bp 16:30 Drug: Benadryl 12.5 mg Route: IVP; Site: left antecubital; bp 18:23 Follow up: Response: Pain is decreased bp 16:30 Drug: Reglan 10 mg Route: IVP; Site: left antecubital; bp 18:23 Follow up: Response: Pain is decreased bp Disposition: 10/10 09:08 Co-signature as Attending Physician, Jason Clements MD I agree with the assessment and kdr plan of care. Disposition: 10/10/19 18:00 Discharged to Home. Impression: Acute upper respiratory infection, unspecified. - Condition is Stable. - Discharge Instructions: Viral Respiratory Infection, [id number]. - Medication Reconciliation Form, Thank You Letter, Antibiotic Education, Prescription Opioid Use, Work release form form. - Follow up: Emergency Department; When: As needed; Reason: Worsening of condition. Follow up: Private Physician; When: 2 - 3 days; Reason: Recheck today's complaints, Continuance of care, Re-evaluation by your physician. Signatures: Dispatcher [employer] EDMS Homa Velez, EQUIPMENT CLEANER-C EQUIPMENT CLEANER-Ckb Jason Clements MD MD kdr Peltier, Brian, RN RN Deneen Moore RN RN ca1 Corrections: (The following items were deleted from the chart) 10/09 18:27 18:00 10/10/2019 18:00 Discharged to Home. Impression: Acute upper respiratory bp infection, unspecified. Condition is Stable. Forms are Medication Reconciliation Form, Thank You Letter, Antibiotic Education, Prescription Opioid Use. Follow up: Emergency Department; When: As needed; Reason: Worsening of condition. Follow up: Private Physician; When: 2 - 3 days; Reason: Recheck today's complaints, Continuance of care, Re-evaluation by your physician. kb
--- NOTE | 2019-10-10 18:01 | ER ---
Nurse's Notes [facility] Name: Florentino Chavez Age: 44 yrs Sex: Female : 1975 Arrival Date: 10/10/2019 Time: 14:24 Bed 13 Private MD: Diagnosis: Acute upper respiratory infection, unspecified Presentation: 10/09 14:48 Chief complaint: Patient states: Fever yesterday at 102.1F. Reports headache, coughing ca1 at night, and SOB with exertion, nausea x 2 days. C/O white patchy rash on R forearm and neck x 5 days. Coronavirus screen: Surgical mask placed on patient. Patient moved to private room, placed in contact and droplet isolation with eye protection until further assessment. Patient reports a cough. Patient reports shortness of breath or difficulty breathing. Patient reports a measured and/or subjective temperature greater than 100.4F. Patient denies travel on a cruise ship or to a country the [facility] currently lists as an affected area. Patient denies contact with known and/or suspected case of COVID-19. Ebola Screen: Patient negative for fever greater than or equal to 101.5 degrees Fahrenheit, and additional compatible Ebola Virus Disease symptoms Patient denies exposure to infectious person. Patient denies travel to an Ebola-affected area in the 21 days before illness onset. No symptoms or risks identified at this time. Initial Sepsis Screen: Does the patient meet any 2 criteria? No. Patient's initial sepsis screen is negative. Does the patient have a suspected source of infection? No. Patient's initial sepsis screen is negative. Risk Assessment: Do you want to hurt yourself or someone else? Patient reports no desire to harm self or others. Onset of symptoms was October 10, 2019. 14:48 Method Of Arrival: Ambulatory ca1 14:48 Acuity: MARITA 3 ca1 Triage Assessment: 14:50 Headache History: The patient has had previous headaches and this one is similar to bp previous episodes. General: Appears in no apparent distress. comfortable, Behavior is cooperative, appropriate for age, anxious. Pain: Complains of pain in head Pain currently is 7 out of 10 on a pain scale. Pain began 1 day ago. Also complains of no other associated symptoms. EENT: No deficits noted. Neuro: Level of Consciousness is awake, alert, obeys commands, Oriented to person, place, time, situation, Appropriate for age. Cardiovascular: No deficits noted. Respiratory: No deficits noted. GI: No signs and/or symptoms were reported involving the gastrointestinal system. : No signs and/or symptoms were reported regarding the genitourinary system. Derm: No deficits noted. Musculoskeletal: No deficits noted. 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 - Social history:: Smoking status: Patient reports the use of cigarette tobacco products, denies chronic smoking, but will smoke occasionally. Screenin:00 Abuse screen: Denies threats or abuse. Denies injuries from another. Nutritional bp screening: No deficits noted. Tuberculosis screening: No symptoms or risk factors identified. Fall Risk None identified. Assessment: 16:56 General: SEE TRIAGE NOTE. Pain: Complains of pain in head. bp 18:01 Reassessment: ALL CURRENT ORDERS COMPLETE, VS STABLE ON MONITOR. S/S IMPROVED. bp 18:20 Reassessment: PT D/C HOME AMBULATORY, DX WITH VIRAL URI. bp Vital Signs: 14:48 BP 145 / 94; Pulse 78; Resp 15 S; Temp 97.4(TE); Pulse Ox 100% on R/A; Weight 58.97 kg ca1 (R); Height 5 ft. 2 in. (157.48 cm) (R); Pain 9/10; 16:50 BP 135 / 97; Pulse 84; Resp 16; Pulse Ox 100% ; bp 17:59 BP 124 / 90; Pulse 66; Resp 17; Pulse Ox 100% ; bp 14:48 Body Mass Index 23.78 (58.97 kg, 157.48 cm) ca1 ED Course: 14:24 Patient arrived in ED. ag5 14:52 Triage completed. ca1 14:53 Arm band placed on right wrist. ca1 16:00 Patient has correct armband on for positive identification. Bed in low position. Call bp light in reach. Side rails up X2. 16:05 Homa Velez FNP-C is [facility]. kb 16:05 Jason Cleemnts MD is Attending Physician. kb 16:09 Alfredo Kuhn, RN is Primary Nurse. bp 16:47 Inserted saline lock: 20 gauge in left antecubital area, using aseptic technique. dh4 17:22 Chest Pa And Lat (2 Views) XRAY In Process Unspecified. EDMS 18:20 No provider procedures requiring assistance completed. IV discontinued, intact, bp bleeding controlled, No redness/swelling at site. Pressure dressing applied. Administered Medications: 16:30 Drug: NS 0.9% 1000 ml Route: IV; Rate: 1000 ml; Site: left antecubital; bp 18:22 Follow up: IV Status: Completed infusion; IV Intake: 1000ml bp 16:30 Drug: TORadol - Ketorolac 15 mg Route: IVP; Site: left antecubital; bp 18:23 Follow up: Response: Pain is decreased bp 16:30 Drug: Benadryl 12.5 mg Route: IVP; Site: left antecubital; bp 18:23 Follow up: Response: Pain is decreased bp 16:30 Drug: Reglan 10 mg Route: IVP; Site: left antecubital; bp 18:23 Follow up: Response: Pain is decreased bp Intake: 18:22 IV: 1000ml; Total: 1000ml. bp Outcome: 18:00 Discharge ordered by . kb 18:21 Discharged to home ambulatory. bp 18:21 Condition: stable 18:21 Discharge instructions given to patient, Instructed on discharge instructions, follow up and referral plans. Demonstrated understanding of instructions, follow-up care. 18:27 Patient left the ED. bp Signatures: Dispatcher [employer] EDMS Homa Velez FNP-C FNP-CkAlfredo Angela, RN RN bp Deneen Alvarado RN RN ca1 Consuelo Srinivasan Donald 4 Corrections: (The following items were deleted from the chart) 14:55 14:48 Chief complaint: Patient states: Fever yesterday at 102.1F. Reports headache, ca1 coughing at night, and SOB with exertion, nausea x 2 days ca1
--- NOTE | 2019-10-10 18:03 | RAD REPORT ---
EXAM DESCRIPTION: Shannan Abbott (2 Views)10/10/2019 5:22 pm CLINICAL HISTORY: sob COMPARISON: 2019 FINDINGS: The lungs appear clear of acute infiltrate. The heart is normal size IMPRESSION: No acute abnormalities displayed
[2019-10-10 19:00] VITALS: TEMP 97.4; O2SAT 100
[2019-10-10 19:06] VITALS: BP 124/90
== END 2019-10-10 18:27 | disposition home or self-care (01) ==
LOC: ER 14:22
DX: J06.9 Acute upper respiratory infection, unspecified (principal); I10 Essential (primary) hypertension; Z72.0 Tobacco use; Z88.0 Allergy status to penicillin
CPT/HCPCS: 96361; 87070; 85025; 80048; 36415; 87081; 87804 ×2; 71046; 96375; 96374; 99283; J2765; J1200; J7030

== ENCOUNTER 2020-11-06 14:16 | Emergency (ER) | payer OTHER ==
--- OUTSIDE RECORDS SUMMARY | 2020-11-06 14:18 | XMS REPORT | Continuity of Care Document ---
:1975 Author Organization [facility] t Address [address] [place] [address] Care Team Providers Name Role Phone Ventura Osei Attending Clinician Problems This patient has no known problems. Allergies, Adverse Reactions, Alerts This patient has no known allergies or adverse reactions. Medications This patient has no known medications. Procedures This patient has no known procedures. Encounters Start End Encounter Admission Attending Care Care Encounter Source Date/Time Date/Time Type Type Clinicians Facility Department ID 2020-03-07 2020-03-07 Telephone EREN Mayorga [id number] 00:00:00 00:00:00 Donna Whitehead MEDIA OPERATOR [id number] [facility] [id number] MATERNAL [id number] & CHILD [address] [place] [address] Results This patient has no known results.
--- NOTE | 2020-11-06 15:50 | RAD REPORT ---
EXAM DESCRIPTION: RAD - Chest Single View - 11/06/2020 3:43 pm CLINICAL HISTORY: CHEST PAIN Chest pain. COMPARISON: Chest Pa And Lat (2 Views) dated 10/10/2019; Chest Single View dated 08/11/2018; CHEST SIN GLE VIEW dated 05/10/2013 FINDINGS: Portable technique limits examination quality. The lungs are grossly clear. The heart is normal in size. No displaced fractures. IMPRESSION: No acute intrathoracic process suspected.
[2020-11-06] MEDS ORDERED: METHYLPREDNISOLONE 125 MG INJ ONE (16:17)
[2020-11-06] MEDS ORDERED: KETOROLAC 30 MG/ML INJ ONE (16:18)
--- NOTE | 2020-11-06 16:42 | RAD REPORT ---
EXAM DESCRIPTION: CT - Thorax Wo Con CLINICAL HISTORY: Chest pain PAIN COMPARISON: CTANGIO CHEST FOR PE dated 05/10/2013; Chest Single View dated 11/06/2020 FINDINGS: The lungs are clear. No pleural thickening or pleural effusion. No pneumothorax. No axillary, mediastinal or hilar adenopathy. No concerning bony finding. No gross upper abdominal finding. All CT scans are performed using dose optimization technique as appropriate and may include automated exposure control or mA/KV adjustment according to patient size. IMPRESSION: Negative study.
--- NOTE | 2020-11-06 17:47 | ER ---
Nurse's Notes [facility] Name: Florentino Chavez Age: 45 yrs Sex: Female : 1975 Arrival Date: 11/06/2020 Time: 14:16 Bed 16 Private MD: Brandon Guardado E Diagnosis: Chest pain on breathing Presentation: 11/06 14:26 Chief complaint: Patient states: my chest and my back hurts, for about 3 days now. 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 any movement my chest it hurts and into my back and stuff as well. Coronavirus screen: At this time, the client does not indicate any symptoms associated with coronavirus-19. Ebola Screen: Patient denies travel to an Ebola-affected area in the 21 days before illness onset. Initial Sepsis Screen: Does the patient meet any 2 criteria? No. Patient's initial sepsis screen is negative. Does the patient have a suspected source of infection? No. Patient's initial sepsis screen is negative. Risk Assessment: Do you want to hurt yourself or someone else? Patient reports no desire to harm self or others. Onset of symptoms was November 06, 2020. 14:26 Method Of Arrival: Wheelchair tw2 14:26 Acuity: MARITA 4 tw2 14:47 Note pt using w/c to move herself to the vending machine at this time, nad. tw2 15:49 Acuity: MARITA 3 iw Triage Assessment: 14:30 General: Appears in no apparent distress. slender, Behavior is calm, cooperative, tw2 appropriate for age. Pain: Complains of pain in back and chest. Cardiovascular: pain with movement. Musculoskeletal: Reports pain in pain with movement. 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 - Social history:: Smoking status: Smoking status: Patient reports the use of cigarette tobacco products, Patient uses. Screenin:28 Abuse screen: Denies threats or abuse. Nutritional screening: No deficits noted. tw2 Tuberculosis screening: No symptoms or risk factors identified. Fall Risk None identified. Assessment: 15:48 General: Appears in no apparent distress. comfortable, Behavior is calm, cooperative, ld1 appropriate for age. Pain: Complains of pain in right scapular area and right subscapular area Pain radiates to chest Pain currently is 9 out of 10 on a pain scale. Quality of pain is described as sharp, stabbing, throbbing, Pain began 1 day ago. Is continuous. Neuro: Level of Consciousness is awake, alert, obeys commands, Oriented to person, place, time, situation, Appropriate for age. Cardiovascular: Capillary refill < 3 seconds Patient's skin is warm and dry. Respiratory: Airway is patent Respiratory effort is even, unlabored, Respiratory pattern is regular, symmetrical. GI: Abdomen is flat, non-distended. : No signs and/or symptoms were reported regarding the genitourinary system. EENT: No signs and/or symptoms were reported regarding the EENT system. Derm: No signs and/or symptoms reported regarding the dermatologic system. Musculoskeletal: Reports pain in right scapular area and right subscapular area. 16:30 Reassessment: Patient appears in no apparent distress at this time. No changes from ld1 previously documented assessment. Patient is alert, oriented x 3, equal unlabored respirations, skin warm/dry/pink. 17:55 Reassessment: Patient appears in no apparent distress at this time. No changes from ld1 previously documented assessment. Patient and/or family updated on plan of care and expected duration. Pain level reassessed. Patient is alert, oriented x 3, equal unlabored respirations, skin warm/dry/pink. Patient states symptoms have improved. Vital Signs: 14:26 BP 118 / 80; Pulse 96; Resp 18; Temp 99.3(TE); Pulse Ox 100% on R/A; Weight 58.97 kg tw2 (R); Height 5 ft. 2 in. (157.48 cm) (R); Pain 10/10; 15:48 BP 113 / 69; Pulse 98; Resp 18; Temp 98.9(O); Pulse Ox 100% on R/A; Pain 8/10; ld1 14:26 Body Mass Index 23.78 (58.97 kg, 157.48 cm) tw2 ED Course: 14:16 Patient arrived in ED. am2 14:17 Brandon Guardado MD is Private Physician. am2 14:26 Bed in low position. Call light in reach. Pulse ox on. NIBP on. tw2 14:28 Triage completed. tw2 14:31 Arm band placed on. tw2 15:25 Jason Clements MD is Attending Physician. kdr 15:29 Patient maintains SpO2 saturation greater than 95% on room air. tw2 15:43 Beatriz Amaya, PROSPER is Primary Nurse. ld1 15:48 Inserted saline lock: 20 gauge in left antecubital area, using aseptic technique. Blood kj1 collected. 15:49 CXR XRAY In Process Unspecified. EDMS 16:26 CT Chest Wo Con In Process Unspecified. EDMS 17:41 Brandon Guardado MD is Referral Physician. kdr 17:56 No provider procedures requiring assistance completed. IV discontinued, intact, ld1 bleeding controlled, No redness/swelling at site. Administered Medications: 14:00 Drug: SOLU-Medrol (methylPrednisoLONE) 125 mg Route: IVP; Site: left antecubital; ld1 16:37 Follow up: Response: No adverse reaction ld1 14:00 Drug: TORadol - (ketorolac) 15 mg Route: IVP; Site: left antecubital; ld1 16:37 Follow up: Response: No adverse reaction ld1 16:00 Drug: Robaxin (methocarbamol) 1 grams Route: IVPB; Infused Over: 1 hrs; Site: left ld1 antecubital; 16:38 Follow up: Response: No adverse reaction; IV Status: Completed infusion ld1 Outcome: 17:47 Discharge ordered by . kdr 17:56 Discharged to home ambulatory. ld1 17:56 Condition: stable 17:56 Discharge instructions given to patient, Instructed on discharge instructions, follow up and referral plans. medication usage, Demonstrated understanding of instructions, follow-up care, medications. 17:57 Patient left the ED. ld1 Signatures: Dispatcher [employer] EDAK Jason Clements MD MD kdr Ramandeep Sawyer RN RN iw Genet Soriano RN RN tw2 Pauline Sandoval Kandis kj1 Beatriz Amaya RN RN ld1 Corrections: (The following items were deleted from the chart) 15:29 15:28 Pain: Pain began tw2 tw2 15:54 15:48 Inserted saline lock: 20 gauge in left antecubital area, using aseptic technique. kj1 Blood collected. ld1
--- NOTE | 2020-11-06 17:47 | EDPHYS ---
Physician Documentation [facility] Name: Florentino Chavez Age: 45 yrs Sex: Female : 1975 Arrival Date: 11/06/2020 Time: 14:16 Bed 16 Private MD: Brandon Guardado E ED Physician Jason Clements HPI: 11/06 15:39 This 45 yrs old Black Female presents to ER via Wheelchair with complaints of Chest kdr Pain, Leg Pain, Back Pain. 15:39 The patient presents with pain that is acute, with no known mechanism of injury. The kdr symptoms are located in the left scapular area, right scapular area, left subscapular area, right subscapular area and thoracic area. Onset: The symptoms/episode began/occurred suddenly, 3 day(s) ago, Awoke her from sleep. The pain radiates to the mid-sternal area. Associated signs and symptoms: Pertinent positives: cough, dysphagia. The problem was sustained when lifting bags of clothing. Modifying factors: The patient symptoms are alleviated by nothing, the patient symptoms are aggravated by any movement, coughing, movement, walking. Severity of symptoms: At their worst the symptoms were moderate, in the emergency department the symptoms are unchanged. The patient has not experienced similar symptoms in the past. The patient has not recently seen a physician. [employer]: 14:30 LMP N/A - Hysterectomy tw2 Historical: - Allergies: 14:29 PENICILLINS; tw2 - Home Meds: 14:29 gabapentin 800 mg oral tab 1 tab [Active]; amlodipine 10 mg oral tab 1 tab once daily tw2 [Active]; Tylenol-Codeine #3 Oral [Active]; 14:30 lorazepam 0.5 mg Oral tab 1 tab 2 times per day [Active]; tw2 - PMHx: 14:29 Back pain; Hypertension; tw2 - PSHx: 14:29 ; ligaments cut on R arm; Appendectomy; tw2 14:30 Hysterectomy; tw2 - Immunization history:: Adult Immunizations. - Social history:: Smoking status: Smoking status: Patient reports the use of cigarette tobacco products, Patient uses. ROS: 15:39 Constitutional: Negative for fever, chills, and weight loss, Eyes: Negative for injury, kdr pain, redness, and discharge, Neck: Negative for injury, pain, and swelling, Respiratory: Negative for shortness of breath, cough, wheezing, and pleuritic chest pain, Abdomen/GI: Negative for abdominal pain, nausea, vomiting, diarrhea, and constipation, : Negative for injury, bleeding, discharge, and swelling, MS/Extremity: Negative for injury and deformity, Skin: Negative for injury, rash, and discoloration, Neuro: Negative for headache, weakness, numbness, tingling, and seizure activity. Psych: Negative for depression, anxiety, suicide ideation, homicidal ideation, and hallucinations, Allergy/Immunology: Negative for hives, rash, and allergies, Endocrine: Negative for neck swelling, polydipsia, polyuria, polyphagia, and marked weight changes, Hematologic/Lymphatic: Negative for swollen nodes, abnormal bleeding, and unusual bruising. 15:39 Cardiovascular: Positive for chest pain, Negative for edema, orthopnea, palpitations, paroxysmal nocturnal dyspnea, acute changes. 15:39 Back: Positive for pain at rest, pain with movement, of the left scapular area, right scapular area, left subscapular area, right subscapular area and thoracic area. Exam: 15:39 Constitutional: This is a well developed, well nourished patient who is awake, alert, kdr and in no acute distress. Head/Face: Normocephalic, atraumatic. Eyes: Pupils equal round and reactive to light, extra-ocular motions intact. Lids and lashes normal. Conjunctiva and sclera are non-icteric and not injected. Cornea within normal limits. Periorbital areas with no swelling, redness, or edema. Neck: Trachea midline, no thyromegaly or masses palpated, and no cervical lymphadenopathy. Supple, full range of motion without nuchal rigidity, or vertebral point tenderness. No Meningismus. Chest/axilla: Normal chest wall appearance and motion. Nontender with no deformity. No lesions are appreciated. Cardiovascular: Regular rate and rhythm with a normal S1 and S2. No gallops, murmurs, or rubs. Normal PMI, no JVD. No pulse deficits. Respiratory: Lungs have equal breath sounds bilaterally, clear to auscultation and percussion. No rales, rhonchi or wheezes noted. No increased work of breathing, no retractions or nasal flaring. Abdomen/GI: Soft, non-tender, with normal bowel sounds. No distension or tympany. No guarding or rebound. No evidence of tenderness throughout. Skin: Warm, dry with normal turgor. Normal color with no rashes, no lesions, and no evidence of cellulitis. MS/ Extremity: Pulses equal, no cyanosis. Neurovascular intact. Full, normal range of motion. Neuro: Awake and alert, GCS 15, oriented to person, place, time, and situation. Cranial nerves II-XII grossly intact. Motor strength 5/5 in all extremities. Sensory grossly intact. Cerebellar exam normal. Normal gait. Psych: Awake, alert, with orientation to person, place and time. Behavior, mood, and affect are within normal limits. 15:39 Back: pain, that is moderate, of the left scapular area, right scapular area, left subscapular area, right subscapular area and thoracic area. Vital Signs: 14:26 BP 118 / 80; Pulse 96; Resp 18; Temp 99.3(TE); Pulse Ox 100% on R/A; Weight 58.97 kg tw2 (R); Height 5 ft. 2 in. (157.48 cm) (R); Pain 10/10; 15:48 BP 113 / 69; Pulse 98; Resp 18; Temp 98.9(O); Pulse Ox 100% on R/A; Pain 8/10; ld1 14:26 Body Mass Index 23.78 (58.97 kg, 157.48 cm) tw2 MDM: 17:47 Patient medically screened. kdr 18:45 Data reviewed: vital signs, nurses notes, lab test result(s), radiologic studies. kdr Counseling: I had a detailed discussion with the patient and/or guardian regarding: the historical points, exam findings, and any diagnostic results supporting the discharge/admit diagnosis, lab results, radiology results, the need for outpatient follow up. 11/06 15:26 Order name: CXR XRAY; Complete Time: 17:30 kdr 11/06 15:38 Order name: CT Chest Wo Con; Complete Time: 17:30 kdr 11/06 15:47 Order name: IV Start; Complete Time: 15:51 iw Administered Medications: 14:00 Drug: SOLU-Medrol (methylPrednisoLONE) 125 mg Route: IVP; Site: left antecubital; ld1 16:37 Follow up: Response: No adverse reaction ld1 14:00 Drug: TORadol - (ketorolac) 15 mg Route: IVP; Site: left antecubital; ld1 16:37 Follow up: Response: No adverse reaction ld1 16:00 Drug: Robaxin (methocarbamol) 1 grams Route: IVPB; Infused Over: 1 hrs; Site: left ld1 antecubital; 16:38 Follow up: Response: No adverse reaction; IV Status: Completed infusion ld1 Disposition: 11/06/20 17:47 Discharged to Home. Impression: Chest pain on breathing. - Condition is Stable. - Discharge Instructions: Nonspecific Chest Pain, [id number], Back Pain, Adult, [id number]. - Prescriptions for Ibuprofen 600 mg Oral Tablet - take 1 tablet by ORAL route every 6 hours As needed take with food; 30 tablet. Robaxin 500 mg Oral Tablet - take 2 tablet by ORAL route every 6 hours As needed; 40 tablet. Medrol (Zachariah) 4 mg Oral Tablets, Dose Pack - take 1 tablet by ORAL route as directed - follow package instructions; 1 packet. - Medication Reconciliation Form, Thank You Letter, Antibiotic Education, Prescription Opioid Use, Work release form form. - Follow up: Brandon Guardado MD; When: 2 - 3 days; Reason: If symptoms return, Further diagnostic work-up, Recheck today's complaints, Continuance of care, Re-evaluation by your physician. - Problem is new. - Symptoms have improved. Signatures: Dispatcher [employer] EDMS Jason Clements MD MD kdr Ramandeep Sawyer RN RN Genet Soriano RN RN 2 Beatriz Amaya RN RN ld1 Corrections: (The following items were deleted from the chart) 17:57 17:47 11/06/2020 17:47 Discharged to Home. Impression: Chest pain on breathing. ld1 Condition is Stable. Forms are Work release form, Medication Reconciliation Form, Thank You Letter, Antibiotic Education, Prescription Opioid Use. Follow up: Brandon Guardado; When: 2 - 3 days; Reason: If symptoms return, Further diagnostic work-up, Recheck today's complaints, Continuance of care, Re-evaluation by your physician. Problem is new. Symptoms have improved. kdr
[2020-11-06 18:49] VITALS: O2SAT 100
[2020-11-06 18:55] VITALS: BP 113/69; TEMP 98.9
== END 2020-11-06 17:57 | disposition home or self-care (01) ==
LOC: ER 14:16
DX: R07.1 Chest pain on breathing (principal); I10 Essential (primary) hypertension; Z88.0 Allergy status to penicillin
CPT/HCPCS: 71250; 71045; J2930; J2800

== ENCOUNTER 2022-06-14 11:16 | Emergency (ER) | payer OTHER ==
--- OUTSIDE RECORDS SUMMARY | 2022-06-14 11:21 | XMS REPORT | Continuity of Care Document ---
:1975 Author Organization [facility] t Address [address] [place] [address] Care Team Providers Name Role Phone Donna Osei Primary Care Physician [phone] PEGGY FITZGERALD Attending Clinician Unavailable Dionne Poole MD Attending Clinician DIONNE POOLE Attending Clinician Unavailable Doctor Unassigned, [place] Attending Clinician Unavailable MANDIE ATKINS Attending Clinician Unavailable Mandie Atkins MD Attending Clinician Crissy Banks Attending Clinician Donna Osei Attending Clinician [phone] DONNA MAYORGA Attending Clinician Unavailable Gracie Garcia Attending Clinician GRACIE ZHOU Attending Clinician Unavailable [facility] Resident Attending Clinician Unavailable Ramesh Santizo MD Attending Clinician Toshia Garcia Attending Clinician Tian BERMEO, Barak Rendon Attending Clinician [phone] Chandan BERMEO, Vicky Attending Clinician Cornelia CHENG, Carla Paez Attending Clinician Wilfredo BERMEO, Ashu Mathew Attending Clinician ASHU VILLALOBOS Attending Clinician Unavailable Wilfredo BERMEO, Ashu Mathew Admitting Clinician ASHU VILLALOBOS Admitting Clinician Unavailable Payers Payer Name Policy Type Policy Number Effective Date Expiration Date S jessika [facility] [id number] 2019 CHOICE MEDICAID 00:00:00 Problems Condition Condition Condition Status Onset Resolution Last Treating Co mments Source Name Details Category Date Date Treatment Clinician Date Lump or Lump or Disease Active Univers mass in mass in 8-05 ity of breast breast 00:00: [place] [facility] S/P S/P Disease Active Univers hysterecto hysterecto 2-18 it y of my my 00:00: [place] [facility] Pelvic Pelvic Disease Active Overview: Univer s pain pain 1-16 Formattin ity of 00:00: g of this [place] note Medical might be Branch different from the original. Added automatic ally from request for surgery [id number] Vaginal Vaginal Disease Active 2018-05 Univers discharge discharge 1-07 ity of 00:00: [place] [facility] Well woman Well woman Disease Active U nivers exam exam 4-30 ity of 00:00: [place] [facility] Depression Depression Disease Active U nivers 3-11 ity of 00:00: [place] [facility] History of History of Disease Active Overview : Univers female female 3-11 Formattin ity of sterilizat sterilizat 00:00: g of this [place] ion ion note Medical might be Branch different from the original. Essure Contracept Contracept Disease Active U nivers augustus augustus 3-11 ity of management management [place] Essential Essential Disease Active Overview: Univers hypertensi hypertensi 7-08 Formattin ity of on on 00:00: g of this [place] 00 note Medical might be Branch different from the original. ICD10 Diagnosis Term Health Care Analyst Utility Allergies, Adverse Reactions, Alerts Allergy Allergy Status Severity Reaction(s) Onset Inactive Treating Comm ents Source Name Type Date Date Clinician SULFA Drug Active Unknown-Cmnt Univ ers (SULFONA Class 7- ity of MIDE 00:00: [place] ANTIBIOT 00 Medical ICS) Branch Sulfa Propensi Active Unknown - Unive rs (Sulfona ty to See comments 12-15 it y of mide adverse 00:00: [place] Antibiot reaction 00 Medica l ics) s Branch Sulfa Propensi Active Unknown - Unive rs (Sulfona ty to See comments 12-15 it y of mide adverse 00:00: [place] Antibiot reaction 00 Medica l ics) s Branch PENICILL Drug Active Rash Univers INS Class 4-15 ity of 00:00: [place] 00 Medical Branch Penicill Propensi Active Rash Univer s ins ty to 4-15 ity of adverse 00:00: [place] reaction 00 Medical s Branch Penicill Propensi Active Rash Univer s ins ty to 4-15 ity of adverse 00:00: [place] reaction 00 Medical s Branch Social History Social Habit Start Date Stop Date Quantity Comments Source History of tobacco 2012-07-21 Cigarette Smoker University of use 00:00:00 [facility] Exposure to 2021-04-01 2021-05-01 Not sure University of SARS-CoV-2 (event) 00:00:00 15:14:00 [facility] Alcohol intake 2021-05-01 2021-05-01 Current University of 00:00:00 00:00:00 non-drinker of [facility] alcohol Branch (finding) Cigarettes smoked 2021-01-21 2021-01-21 Univers ity of current (pack per 00:00:00 00:00:00 [place] ) - Reported Branch Tobacco use and 2021-01-21 2021-01-21 Current user Univers ity of exposure 00:00:00 00:00:00 [facility] Sex Ass[birth year] At [birth year] Universit y of 00:00:00 00:00:00 [facility] Smoking Status Start Date Stop Date Source Current some day smoker 2021-01-21 00:00:00 Univ ersity of [place] [facility] [place] Medications Ordered Filled Start Stop Current Ordering Indication Dosage Frequency Signature Comments Components Source Medication Medication Date Date Medication? Clinician (SIG) Name Name buPROPion 2020-0 Yes 75mg Take 75 mg Un samantha 75 mg 9-01 by mouth ity of tablet 13:20: daily. [address] Branch buPROPion 2020-0 Yes 75mg Take 75 mg Un samantha 75 mg 9-01 by mouth ity of tablet 13:20: daily. [address] buPROPion 2020-0 Yes 75mg Take 75 mg Un samantha 75 mg 9-01 by mouth ity of tablet 13:20: daily. [address] Branch HYDROcodone 2020-0 Yes [id number] 1{tbl} Take 1 Univers -acetaminop 2-21 tablet by ity of hen 5-325 00:00: mouth [place] mg tablet 00 every 6 Medical (six) Branch hours as needed for Pain (scale 7-10). ibuprofen 2020-0 Yes [id number] 600mg Take 1 Univers 600 mg 2-21 tablet by ity of tablet 00:00: mouth [place] 00 every 6 Medical (six) Branch hours as needed for Pain (scale 4-6). cyclobenzap 2020-0 Yes [id number] 10mg Take 1 Univers rine 10 mg 2-21 tablet by ity of tablet 00:00: mouth 3 [place] 00 (three) Medical times Branch daily. HYDROcodone 2020-0 Yes [id number] 1{tbl} Take 1 Univers -acetaminop 2-21 tablet by ity of hen 5-325 00:00: mouth [place] mg tablet 00 every 6 Medical (six) Branch hours as needed for Pain (scale 7-10). ibuprofen 2020-0 Yes [id number] 600mg Take 1 Univers 600 mg 2-21 tablet by ity of tablet 00:00: mouth [place] 00 every 6 Medical (six) Branch hours as needed for Pain (scale 4-6). cyclobenzap 2020-0 Yes [id number] 10mg Take 1 Univers rine 10 mg 2-21 tablet by ity of tablet 00:00: mouth 3 [place] 00 (three) Medical times Branch daily. HYDROcodone 2020-0 Yes [id number] 1{tbl} Take 1 Univers -acetaminop 2-21 tablet by ity of hen 5-325 00:00: mouth [place] mg tablet 00 every 6 Medical (six) Branch hours as needed for Pain (scale 7-10). ibuprofen 2020-0 Yes [id number] 600mg Take 1 Univers 600 mg 2-21 tablet by ity of tablet 00:00: mouth [place] 00 every 6 Medical (six) Branch hours as needed for Pain (scale 4-6). cyclobenzap 2020-0 Yes [id number] 10mg Take 1 Univers rine 10 mg 2-21 tablet by ity of tablet 00:00: mouth 3 (three) Medical times Branch daily. hydrOXYzine 2020-0 Yes TK 1 T PO U nivers 25 mg 1-02 Q 8 H PRN ity of tablet 00:00: [place] [facility] ALPRAZolam 2020-0 Yes TK 1 T PO Un samantha 0.5 mg 1-02 QHS ity of tablet 00:00: [place] [address] Medical Branch gabapentin 2020-0 Yes TK 1 T PO Un samantha 800 mg 1-02 BID ity of tablet 00:00: [place] [address] Medical Branch amLODIPine 2020-0 Yes TK 1 T PO Un samantha 10 mg 1-02 ONCE A DAY ity of tablet 00:00: [place] [address] Medical Branch hydrOXYzine 2020-0 Yes TK 1 T PO U nivers 25 mg 1-02 Q 8 H PRN ity of tablet 00:00: [place] [facility] ALPRAZolam 2020-0 Yes TK 1 T PO Un samantha 0.5 mg 1-02 QHS ity of tablet 00:00: [place] [address] Medical Branch gabapentin 2020-0 Yes TK 1 T PO Un samantha 800 mg 1-02 BID ity of tablet 00:00: [place] [address] Medical Branch amLODIPine 2020-0 Yes TK 1 T PO Un samantha 10 mg 1-02 ONCE A DAY ity of tablet 00:00: [place] [address] Medical Branch hydrOXYzine 2020-0 Yes TK 1 T PO U nivers 25 mg 1-02 Q 8 H PRN ity of tablet 00:00: [place] [facility] ALPRAZolam 2020-0 Yes TK 1 T PO Un samantha 0.5 mg 1-02 QHS ity of tablet 00:00: [place] [address] Medical Branch gabapentin 2020-0 Yes TK 1 T PO Un samantha 800 mg 1-02 BID ity of tablet 00:00: [place] [address] Medical Branch amLODIPine 2020-0 Yes TK 1 T PO Un samantha 10 mg 1-02 ONCE A DAY ity of tablet 00:00: [address] FLUoxetine Yes [id number] 10mg Take 1 Cap Univers (PROZAC) 10 3-11 by mouth ity of mg capsule 00:00: daily. [place] [facility] hydrochloro Yes [id number] 25mg Take 1 Tab Univers thiazide 3-11 by mouth ity of (ESIDRIX) 00:00: daily. [place] 25 mg Medical tablet Branch FLUoxetine Yes [id number] 10mg Take 1 Cap Univers (PROZAC) 10 3-11 by mouth ity of mg capsule 00:00: daily. [place] [facility] hydrochloro Yes [id number] 25mg Take 1 Tab Univers thiazide 3-11 by mouth ity of (ESIDRIX) 00:00: daily. [place] 25 mg Medical tablet Branch FLUoxetine Yes [id number] 10mg Take 1 Cap Univers (PROZAC) 10 3-11 by mouth ity of mg capsule 00:00: daily. [address] hydrochloro Yes [id number] 25mg Take 1 Tab Univers thiazide 3-11 by mouth ity of (ESIDRIX) 00:00: daily. [place] mg [facility] Immunizations Ordered Filled Immunization Date Status Comments [facility] e Immunization Name Name Influenza Virus 2013-02-06 Completed Universit y of Vaccine 00:00:00 [facility] Influenza Virus 2013-02-06 Completed Universit y of Vaccine 00:00:00 [facility] Influenza Virus 2013-02-06 Completed Universit y of Vaccine 00:00:00 [facility] TDAP 2013-01-19 Completed University 00:00:00 [facility] TDAP 2013-01-19 Completed University of 00:00:00 [facility] TDAP 2013-01-19 Completed University of 00:00:00 [facility] Varicella 2012-09-01 Completed University of (varivax)(chicken 00:00:00 [facility] edical pox) Branch Varicella 2012-09-01 Completed University of (varivax)(chicken 00:00:00 [place] M edical pox) Branch Varicella 2012-09-01 Completed University of (varivax)(chicken 00:00:00 [facility] edical pox) Branch Rubella 2012-02-15 Completed University of 00:00:00 [facility] TDAP 2012-02-15 Completed University of 00:00:00 [facility] Branch Rubella 2012-02-15 Completed University of 00:00:00 [facility] Branch TDAP 2012-02-15 Completed University of 00:00:00 [facility] Branch Rubella 2012-02-15 Completed University of 00:00:00 [facility] Branch TDAP 2012-02-15 Completed University of 00:00:00 [place] [facility] Td 2000-05-23 Completed University of 00:00:00 [facility] Branch Td 2000-05-23 Completed University of 00:00:00 [facility] Td 2000-05-23 Completed University of 00:00:00 [facility] Vital Signs Vital Name Observation Time Observation Value Comments Source Systolic blood 2021-05-01 21:15:00 117 mm[Hg] Univer sity of pressure [facility] Diastolic blood 2021-05-01 21:15:00 85 mm[Hg] Unive rsity of [facility] Heart rate 2021-05-01 21:15:00 84 /min [facility] Body temperature 2021-05-01 21:15:00 36.56 Sarah [facility] Respiratory rate 2021-05-01 21:15:00 18 /min [facility] Body height 2021-05-01 21:15:00 157.5 cm [facility] Body weight 2021-05-01 21:15:00 56.019 kg [facility] BMI 2021-05-01 21:15:00 22.59 kg/m2 [facility] Oxygen saturation in 2021-05-01 21:15:00 99 /min [facility] Arterial blood by [facility] Pulse oximetry Branch Procedures Procedure Date / Time Performing Clinician Source Performed PATIENT FINANCIAL 2021-05-01 06:01:00 Doctor Unassigned, [facility] RESPONSIBILITY - ALL [place] [facility] Bra count includes the [facility] FORMS Encounters Start End Encounter Admission Attending Care Care Encounter Source Date/Time Date/Time Type Type Clinicians Facility Department ID 2021-08-04 2021-08-04 Outpatient R EREN FITZGERALD FLALAN [id number] [facility] 13:00:00 13:00:00 PEGGY acevedo [facility] 2021-05-29 2021-05-29 Telephone [facility] [id number] Univers 00:00:00 00:00:00 Dionne Hough SPECIALTY 350.1.13.10 ity of CARE 4.2.7.2.686 [facility] CENTER AT [phone] La krys RAMIREZ [address] [place] [address] 2021-05-01 2021-05-01 Office [facility] [id number] Univers 15:04:03 16:02:40 Visit Dionne Hough SPECIALTY 350.1.13.10 ity of CARE 4.2.7.2.686 [facility] CENTER AT [id number] La krys RAMIREZ [address] [place] [address] 2021-05-01 2021-05-01 [facility] [id number] Univers 15:00:00 16:02:40 DIONNE [facility] 2021-05-01 2021-05-01 Outpatient [facility] [id number] Univers 15:00:00 16:02:40 [facility] 2021-05-01 2021-05-01 Orders Doctor DEEJAY [id number] [id number] Univers 00:00:00 00:00:00 Only Unassigned, OG 350.1.13.10 ity of [place] [facility] 4.2.7.2.686 Gee as [id number] [address] 2021-04-21 2021-04-21 [facility] [id number] Univers 14:00:00 14:33:31 MANDIE [facility] 2021-04-21 2021-04-21 Outpatient R MILLY [facility] [id number] Univers 14:00:00 14:33:31 MANDIE [facility] 2021-04-21 2021-04-21 Outpatient James[facility] [id number] Univers 14:00:00 14:33:31 MANDIE [facility] 2021-04-21 2021-04-21 [facility] [id number] Univers 13:59:41 14:33:31 Visit Mandie GANDARA 350.1.13.10 i ty of [place]2.7.2.686 [place] PROF[place] [id number] La dical NAL 419 [facility] 2021-04-08 2021-04-08 Outpatient R [facility] [id number] Univers 14:30:00 14:30:00 [facility] 2021-04-07 2021-04-07 Office [facility] [id number] Univers 14:07:49 14:47:42 Visit Mandie Crescencio JULIOCESAR 350.1.13.10 i ty of [place] 4.2.7.2.686 [place] [id number] La dical NAL 419 [facility] 2021-04-07 2021-04-07 Outpatient R [facility] [id number] Univers 14:00:00 14:47:42 MANDIE [facility] 2021-04-01 2021-04-01 Telephone [facility] 1.2.840.114 [id number] Univers 00:00:00 00:00:00 Crissy Phelps DIGESTER CAPPER 350.1.13.10 it y of [facility] 4.2.7.2.686 Gee as MATERNAL [id number] Med ical & CHILD [address] [place] [address] 2021-03-31 2021-03-31 [facility] 1.2.840.114 [id number] Univers 12:26:13 23:59:00 Encounter Donna GANDARA 350.1.13.10 ity of [place]2.7.2.[place] [id number] [facility] [address] [place] 2021-03-31 2021-03-31 Outpatient R [facility] [id number] Univers 12:25:33 12:25:33 DONNA lee f [facility] 2021-03-31 2021-03-31 [facility] 1.2.840.114 [id number] Univers 12:25:33 12:25:33 Encounter Donna GANDARA 350.1.13.10 ity of [place] 4.2.7.2.686 [facility] [id number] [facility] [address] [place] 2021-03-31 2021-03-31 Orders Doctor DEEJAY 1.2.840.114 [id number] Univers 00:00:00 00:00:00 Only Unassigned, OG 350.1.13.10 ity of [place] [facility] 4.2.7.2.686 Gee as [id number] [facility] [address] [place] 2021-02-24 2021-02-24 Outpatient R MUKESH [facility] [id number] Univers 14:00:00 14:00:00 DONNA lee [facility] 2021-01-27 2021-01-27 [facility] 1.2.840.114 [id number] Univers 06:37:08 23:59:00 Encounter Donna COFFEY 350.1.13.10 ity of [facility] 4.2.7.2.686 [facility] AT [id number] La krys RAMIREZ [address] [place] [address] 2021-01-27 2021-01-27 Outpatient R MUKESH [facility] [id number] Univers 00:00:00 00:00:00 DONNA hodge [facility] 2021-01-21 2021-01-21 Office Donna Mayorga [facility] 1.2.8 40.114 [id number] Univers 12:55:05 14:37:00 Visit Gracie Zhou DIGESTER CAPPER 350.1.13.10 ity of [facility] 4.2.7.2.686 Gee as MATERNAL [id number] Med ical & CHILD [address] [place] [address] 2021-01-21 2021-01-21 Outpatient R ABELARDO [facility] [id number] Univers 13:15:00 13:15:00 GRACIE lee [facility] 2021-01-21 2021-01-21 Orders Doctor VILLALBA 1.2.840.114 [id number] Univers 00:00:00 00:00:00 Only Unassigned, OG 350.1.13.10 ity of [place] [facility] 4.2.7.2.686 Gee as [id number] [place] [address] [place] 2021-01-21 2021-01-21 Orders Doctor DEEJAY 1.2.840.114 [id number] Univers 00:00:00 00:00:00 Only Unassigned, OG 350.1.13.10 ity of [place] [facility] 4.2.7.2.686 Gee as [id number] [address] 2020-03-07 2020-03-07 Telephone [facility] 1.2.840.114 [id number] 00:00:00 00:00:00 Donna Ventura DIGESTER CAPPER 350.1.13.10 [facility] 4.2.7.2.686 MATERNAL [id number] & CHILD [address] [place] [address] 2020-03-07 2020-03-07 Telephone [facility] 1.2.840.114 [id number] Univers 00:00:00 00:00:00 Donna C DIGESTER CAPPER 350.1.13.10 ity of [facility] 4.2.7.2.686 Gee as MATERNAL [id number] Med ical & CHILD [address] [place] [address] 2020-03-06 2020-03-06 [facility] 1.2.840.114 [id number] Univers 12:30:00 23:59:00 Encounter Donna Gandara 350.1.13.10 ity [facility] 4.2.7.2.686 [place] [facility] [id number] [facility] [address] [place] 2020-03-06 2020-03-06 [facility] [id number] Univers 00:00:00 00:00:00 DONNA ity o f [facility] 2020-02-11 2020-02-11 Telephone [facility] 1.2.840.114 [id number] Univers 00:00:00 00:00:00 Donna C DIGESTER CAPPER 350.1.13.10 ity of [facility] 4.2.7.2.686 Gee as MATERNAL [id number] [facility] ical & CHILD [address] [place] [address] 2020-02-06 2020-02-06 [facility] 1.2.840.114 [id number] Univers 06:28:49 23:59:00 Encounter Donna Whitehead SPECIALTY 350.1.13.10 ity of [facility] 4.2.7.2.686 [place] CENTER AT [id number] La krys VICTORY [address] [facility] 2020-02-06 2020-02-06 Outpatient R AKINSIPE, [facility] [id number] Univers 00:00:00 00:00:00 DONNA ity o f [facility] 2020-01-02 2020-01-02 Telephone Akinsipe, [facility] 1.2.840.114 [id number] Univers 00:00:00 00:00:00 Donna Whitehead [place] 350.1.13.10 ity of [place]2.7.2.686 [place] Profess[place] [phone] La krys nal 134 [facility] 2019-12-26 2019-12-26 Office Mukesh, [facility] [id number] Univers 13:26:38 14:33:37 Visit Donna Whitehead DIGESTER CAPPER 350.1.13.10 ity of [facility] 4.2.7.2.686 Gee as MATERNAL [phone] Med ical & CHILD 107 [facility] 2019-12-26 2019-12-26 Outpatient R AKINSIPE, [facility] [id number] Univers 13:15:00 13:15:00 DONNA ity o f [facility] 2019-12-17 2019-12-17 Outpatient R AKINSIPE, [facility] [id number] Univers 14:15:00 14:15:00 DONNA ity o f [facility] 2019-12-12 2019-12-12 Outpatient R AKINSIPE, [facility] [id number] Univers 14:15:00 14:15:00 DONNA ity o f [facility] 2019-12-03 2019-12-03 Outpatient R AKINSIPE, [facility] [id number] Univers 13:15:00 13:15:00 DONNA ity o f [facility] 2019-11-16 2019-11-16 Outpatient R AKINSIPE, [facility] [id number] Univers 10:00:00 10:00:00 DONNA ity o f [facility] 2019-11-14 2019-11-14 [facility] [id number] Univers 10:00:00 10:00:00 DNONA ity o f [facility] 2019-08-28 2019-08-28 Outpatient R [facility] [id number] Univers 13:00:00 13:00:00 ity of [facility] 2019-08-28 2019-08-28 Telemedici [facility] Resident UNIVERSIT 1. 2.840.114 [id number] Univers 07:21:41 07:36:41 ne Visit Ramesh Santizo Y HEALTH 350.1.13.10 ity of CL[place] 4.2.7.2.686 [place] [id number] [address] 2019-08-21 2019-08-21 Telephone DIYA Pierre 1.2.840.114 [id number] Univers 00:00:00 00:00:00 Toshia Y HEALTH 350.1.13.10 i ty of CL[place] 4.2.7.2.686 [place] [id number] [address] 2019-08-17 2019-08-17 Letter Domingo UNIVERSIT 1.2.840.114 [id number] Univers 00:00:00 00:00:00 (Out) Barak lee Y HEALTH 350.1.13.10 ity of [facility] CLINICS 4.2.7.2.686 [place] [id number] [address] 2019-08-01 2019-08-01 Telephone DIYA Pierre 1.2.840.114 [id number] Univers 00:00:00 00:00:00 Toshia Y HEALTH 350.1.13.10 i ty of [place] 4.2.7.2.686 [place] [id number] [address] 2019-07-19 2019-07-19 Office Azeem [facility] Resident UNIVERSIT 1.2.8 40.114 [id number] Univers 09:03:18 09:54:08 Visit Vicky Hawley Y HEALTH 350.1.13.10 ity of CL[place] 4.2.7.2.[place] [id number] [address] 2019-07-19 2019-07-19 Outpatient R [facility] [id number] Univers 09:00:00 09:00:00 ity of [facility] 2019-07-17 2019-07-17 Orders Doctor DEEJAY 1.2.840.114 [id number] Univers 00:00:00 00:00:00 Only Unassigned, OG 350.1.13.10 ity of [place] [facility] 4.2.7.2.686 Gee as [id number] [facility] [address] [place] 2019-07-16 2019-07-16 Transition Angel Locke 1.2.840.114 [id number] Univers 00:00:00 00:00:00 of Care Carla Philippe Smith 350.1.13.10 i ty of [place] 4.2.7.2.[place] [id number] [facility] [address] Branch 2019-07-10 2019-07-13 Hospital Letitia Villalobos 1.2.425.144 [id number] Univers 05:11:29 11:39:00 Encounter Ashu Paez 350.1.13.10 ity of Hospital 4.2.7.2.686 Gee as [id number] [facility] 092 Branch 2019-07-10 2019-07-13 [facility]PER[facility]OR [id number] Univers 05:11:29 11:39:00 ASHU ity of [facility] 2019-07-10 2019-07-10 Telephone DEANDRA Villalobos 1.2.840.114 [id number] Univers 00:00:00 00:00:00 Ashu L Y HEALTH 350.1.13.10 i ty of [place] 4.2.7.2.[place] [id number] [facility] 113 Branch 2019-07-05 2019-07-05 Orders Doctor DEEJAY 1.2.840.114 [id number] Univers 00:00:00 00:00:00 Only Unassigned, OG 350.1.13.10 ity of [place] [facility] 4.2.7.2.686 Gee as [id number] [facility] [address] [place] 2019-06-07 2019-06-07 Office Pool, [facility] Resident UNIVERSIT 1.2.8 40.114 [id number] Univers 10:17:23 12:13:33 Visit Ashu Villalobos Y HEALTH 350.1.13.10 ity of CLINICS 4.2.7.2.[place] [id number] [facility] 113 Branch 2019-04-18 2019-04-18 Orders Doctor DEEJAY 1.2.840.114 [id number] Univers 00:00:00 00:00:00 Only Unassigned, OG 350.1.13.10 ity of [place] [facility] 4.2.7.2.686 Gee as [id number] [facility] 009 Branch Results This patient has no known results.
[2022-06-14] MEDS ORDERED: ASPIRIN 81 MG CHEWABLE TABLET ONE (11:58)
[2022-06-14] MEDS ORDERED: DICYCLOMINE HCL 10 MG CAP ONE (11:58)
[2022-06-14] MEDS ORDERED: PANTOPRAZOLE 40 MG INJ ONE (11:58)
[2022-06-14 12:22] LABS: Absolute Lymphocytes (CBC) 1.9 K/uL (0.7-4.9); Hematocrit 37.4 % (36.0-45.0); MCV 84.9 fL (80-100)
[2022-06-14 12:23] LABS: Protime INR 1.08
[2022-06-14 12:25] LABS: Bilirubin Direct 0.1 mg/dL (0-0.2); Bilirubin Total 0.3 mg/dL (0.2-1.0); Magnesium 1.8 mg/dL (1.6-2.4); Potassium 3.9 mmol/L (3.5-5.1); Protein, Total 7.6 g/dL (6.4-8.2); Troponin High Sensitivity 4.1 pg/mL (<58.9)
--- NOTE | 2022-06-14 12:44 | RAD REPORT ---
EXAM DESCRIPTION: US - Abdomen Exam Limited - 06/14/2022 12:26 pm CLINICAL HISTORY: ABD PAIN COMPARISON: No comparisons FINDINGS: The gallbladder demonstrates no gallstones. No pericholecystic fluid or gallbladder wall t hickening. The common bile duct is normal measuring 5 mm. The liver demonstrates no findings of intrahepatic biliary dilatation. IMPRESSION: Unremarkable examination.
--- NOTE | 2022-06-14 13:41 | RAD REPORT ---
EXAM DESCRIPTION: RAD - Chest Pa And Lat (2 Views) - 06/14/2022 1:28 pm CLINICAL HISTORY: CHEST PAIN COMPARISON: Portable chest 11/06/2020, lateral chest 10/10/2019 TECHNIQUE: Frontal and lateral views of the chest were obtained. FINDINGS: The lungs are clear. Interstitial pattern not clearly different from comparison. Heart si ze is normal and central vasculature is within normal limits. No pleural effusion or pneumothorax se en. No acute bony finding noted. No aortic abnormality. No significant change from comparison stud y. IMPRESSION: No acute cardiopulmonary process.
[2022-06-14] MEDS ORDERED: SIMETHICONE 80 MG TAB ONE (14:14)
--- NOTE | 2022-06-14 16:02 | ER ---
Nurse's Notes [facility] Name: Florentino Chavez Age: 46 yrs Sex: Female : 1975 Arrival Date: 06/14/2022 Time: 11:20 Bed 26 Private MD: Diagnosis: Chest pain, unspecified;Gastro-esophageal reflux disease without esophagitis Presentation: 06/14 11:26 Chief complaint: Patient states: Intermittent chest pain that has been ongoing x 3-4 ss days, and has gotten worse over the past 2 days. Worst after eating. Coronavirus screen: Client denies travel out of the [place] in the last 14 days. Ebola Screen: Patient denies exposure to infectious person. Patient denies travel to an Ebola-affected area in the 21 days before illness onset. Initial Sepsis Screen: Does the patient meet any 2 criteria? No. Patient's initial sepsis screen is negative. Does the patient have a suspected source of infection? No. Patient's initial sepsis screen is negative. Risk Assessment: Do you want to hurt yourself or someone else? Patient reports no desire to harm self or others. Onset of symptoms was June 10, 2022. 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 - Social history:: Smoking status: Patient reports the use of cigarette tobacco products, denies chronic smoking, but will smoke occasionally. Screenin:01 [facility] ED Fall Risk Assessment (Adult) History of falling in the last 3 months, ld1 including since admission No falls in past 3 months (0 pts). Abuse screen: Denies threats or abuse. Denies injuries from another. Nutritional screening: No deficits noted. Tuberculosis screening: No symptoms or risk factors identified. Assessment: 12:01 General: Appears in no apparent distress. comfortable, Behavior is calm, cooperative, ld1 appropriate for age. Pain: Complains of pain in epigastric area and right upper quadrant Pain does not radiate. Pain currently is 7 out of 10 on a pain scale. Quality of pain is described as sharp, shooting, throbbing, Pain began suddenly, Is continuous. Neuro: Level of Consciousness is awake, alert, obeys commands, Oriented to person, place, time, situation. Cardiovascular: Capillary refill < 3 seconds Patient's skin is warm and dry. Rhythm is sinus rhythm. Respiratory: Airway is patent Respiratory effort is even, unlabored. GI: Abdomen is flat, non-distended, Reports upper abdominal pain. : No signs and/or symptoms were reported regarding the genitourinary system. EENT: No signs and/or symptoms were reported regarding the EENT system. Derm: No signs and/or symptoms reported regarding the dermatologic system. Musculoskeletal: No signs and/or symptoms reported regarding the musculoskeletal system. Vital Signs: 11:26 BP 146 / 94; Pulse 78; Resp 16; Temp 98.6(TE); Pulse Ox 100% on R/A; Weight 56.7 kg; ss Height 5 ft. 2 in. (157.48 cm); Pain 8/10; 13:00 BP 124 / 89; Pulse 59; Resp 13; Pulse Ox 100% on R/A; ld1 13:30 BP 128 / 84; Pulse 58; Resp 16; Pulse Ox 100% on R/A; ld1 14:10 BP 127 / 82; Pulse 57; Resp 18; Pulse Ox 100% on R/A; ld1 15:16 BP 111 / 89; Pulse 58; Resp 18; Pulse Ox 100% on R/A; ld1 16:22 BP 120 / 82; Pulse 60; Resp 16; Pulse Ox 100% ; mb9 11:26 Body Mass Index 22.86 (56.70 kg, 157.48 cm) ED Course: 11:20 Patient arrived in ED. rg4 11:24 Jonathon Somers DO is Attending Physician. ms3 11:28 Triage completed. ss 11:28 Arm band placed on right wrist. ss 11:36 Neena Will FNP-C is [facility]. snw 11:54 Beatriz Amaya, RN is Primary Nurse. ld1 12:00 Inserted saline lock: 20 gauge in right antecubital area, using aseptic technique. zm Blood collected. 12:00 Lipase Sent. zm 12:00 Basic Metabolic Panel Sent. zm 12:00 CBC with Diff Sent. zm 12:00 LFT's Sent. zm 12:00 Magnesium Sent. zm 12:00 NT PRO-BNP Sent. zm 12:00 PT-INR Sent. zm 12:01 Patient has correct armband on for positive identification. Placed in gown. Bed in low ld1 position. Call light in reach. Side rails up X2. city recorder on. Pulse ox on. NIBP on. Door closed. Noise minimized. Warm blanket given. 12:01 No provider procedures requiring assistance completed. Patient maintains SpO2 ld1 saturation greater than 95% on room air. 12:21 US Abdomen Limited In Process Unspecified. EDMS 13:29 Chest Pa And Lat (2 Views) XRAY In Process Unspecified. EDMS 16:21 IV discontinued, intact, bleeding controlled, No redness/swelling at site. Pressure mb9 dressing applied. 17:03 Primary Nurse role handed off by Beatriz Amaya, PROSPER snw Administered Medications: 11:59 Drug: Aspirin Chewable Tablet 324 mg Route: PO; ld1 12:01 Follow up: Response: No adverse reaction ld1 14:14 Follow up: Response: No adverse reaction ld1 11:59 Drug: Dicyclomine 20 mg Route: PO; ld1 12:01 Follow up: Response: No adverse reaction ld1 14:13 Follow up: Response: No adverse reaction ld1 11:59 Drug: ProTONIX (pantoprazole) 40 mg Route: IVP; Site: right antecubital; ld1 12:01 Follow up: Response: No adverse reaction ld1 14:13 Follow up: Response: No adverse reaction ld1 14:13 Drug: Simethicone 240 mg Route: PO; ld1 Medication: 12:01 VIS not applicable for this client. ld1 Outcome: 16:01 Discharge ordered by . dominick 16:21 Discharged to home ambulatory. mbRachelle 16:21 Condition: stable 16:21 Discharge instructions given to patient, Instructed on discharge instructions, follow up and referral plans. Demonstrated understanding of instructions, follow-up care, medications, Prescriptions given X 3. 16:22 Patient left the ED. [id number] 17:05 Patient left the ED. snw Signatures: Dispatcher [employer] EDMS Neena Will, PROFESSOR OF BIOLOGICAL SCIENCES-C PROFESSOR OF BIOLOGICAL SCIENCES-Csnw Lor Waterman, RN RN ss Amauri, Nohemi rg4 Jonathon Somers, DO CHAPPELL ms3 Beatriz Amaya RN RN ld1 Xochitl Rizo, Slime Bruce RN RN mb9
--- NOTE | 2022-06-14 16:02 | EDPHYS ---
Physician Documentation [facility] Name: Florentino Chavez Age: 46 yrs Sex: Female : 1975 Arrival Date: 06/14/2022 Time: 11:20 Bed 26 Private MD: ED Physician Jonathon Somers HPI: 06/14 12:29 This 46 yrs old Black Female presents to ER via Ambulatory with complaints of Chest snw Pain. 12:29 The patient or guardian reports chest pain that is located primarily in the substernal snw area, epigastric area. Onset: acutely, 4 day(s) ago, and became worse yesterday, and became persistent. The pain does not radiate. Associated signs and symptoms: Pertinent positives: nausea. The chest pain is described as causing indigestion, a pressure. Duration: The patient or guardian reports multiple episodes. Severity of pain: At its worst the pain was mild moderate. The patient has not experienced similar symptoms in the past. 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 - Social history:: Smoking status: Patient reports the use of cigarette tobacco products, denies chronic smoking, but will smoke occasionally. ROS: 13:51 Constitutional: Negative for fever, chills, and weight loss, Eyes: Negative for injury, snw pain, redness, and discharge, ENT: Negative for injury, pain, and discharge, Neck: Negative for injury, pain, and swelling. 13:51 Respiratory: Negative for shortness of breath, cough, wheezing, and pleuritic chest pain. 13:51 Cardiovascular: Positive for chest pain. 13:51 Abdomen/GI: Positive for abdominal pain, nausea, abdominal distension. Exam: 11:47 Constitutional: This is a well developed, well nourished patient who is awake, alert, snw and in no acute distress. Head/Face: Normocephalic, atraumatic. Eyes: Pupils equal round and reactive to light, extra-ocular motions intact. Lids and lashes normal. Conjunctiva and sclera are non-icteric and not injected. Cornea within normal limits. Periorbital areas with no swelling, redness, or edema. ENT: Nares patent. No nasal discharge, no septal abnormalities noted. Tympanic membranes are normal and external auditory canals are clear. Oropharynx with no redness, swelling, or masses, exudates, or evidence of obstruction, uvula midline. Mucous membranes moist. Neck: Trachea midline, no thyromegaly or masses palpated, and no cervical lymphadenopathy. Supple, full range of motion without nuchal rigidity, or vertebral point tenderness. No Meningismus. Chest/axilla: Normal chest wall appearance and motion. Nontender with no deformity. No lesions are appreciated. Cardiovascular: Regular rate and rhythm with a normal S1 and S2. No gallops, murmurs, or rubs. Normal PMI, no JVD. No pulse deficits. Respiratory: Lungs have equal breath sounds bilaterally, clear to auscultation and percussion. No rales, rhonchi or wheezes noted. No increased work of breathing, no retractions or nasal flaring. 11:47 Back: No spinal tenderness. No costovertebral tenderness. Full range of motion. Skin: Warm, dry with normal turgor. Normal color with no rashes, no lesions, and no evidence of cellulitis. MS/ Extremity: Pulses equal, no cyanosis. Neurovascular intact. Full, normal range of motion. Neuro: Awake and alert, GCS 15, oriented to person, place, time, and situation. Cranial nerves II-XII grossly intact. Motor strength 5/5 in all extremities. Sensory grossly intact. Cerebellar exam normal. Normal gait. 11:47 Abdomen/GI: Inspection: abdomen appears normal, Bowel sounds: normal, Palpation: mild abdominal tenderness, moderate abdominal tenderness, in the right upper quadrant, Indicators: Rosas's sign is positive. 11:47 Psych: Behavior/mood is pleasant, anxious. Vital Signs: 11:26 BP 146 / 94; Pulse 78; Resp 16; Temp 98.6(TE); Pulse Ox 100% on R/A; Weight 56.7 kg; ss Height 5 ft. 2 in. (157.48 cm); Pain 8/10; 13:00 BP 124 / 89; Pulse 59; Resp 13; Pulse Ox 100% on R/A; ld1 13:30 BP 128 / 84; Pulse 58; Resp 16; Pulse Ox 100% on R/A; ld1 14:10 BP 127 / 82; Pulse 57; Resp 18; Pulse Ox 100% on R/A; ld1 15:16 BP 111 / 89; Pulse 58; Resp 18; Pulse Ox 100% on R/A; ld1 16:22 BP 120 / 82; Pulse 60; Resp 16; Pulse Ox 100% ; mb9 11:26 Body Mass Index 22.86 (56.70 kg, 157.48 cm) ss MDM: 11:38 Patient medically screened. snw 11:47 Differential diagnosis: viral Infection, bacterial infection, URI, gastroenteritis, SC, snw cholecystectomy. 11:48 Data reviewed: vital signs, nurses notes. Care significantly affected by the following snw chronic conditions: Hypertension. 12:10 The patient was given aspirin in the Emergency Department. snw 12:10 Differential diagnosis: abnormal EKG, acute myocardial infarction, anxiety, snw Cholelithiasis esophagitis, gastritis, gastroesophageal reflux disease (GERD). Consideration of Admission/Observation Escalation of care including admission/observation considered. more debra type s/s, trop low, HEART score low. 12:47 LOIS Risk Score: 1 - Recent [<24hrs] Severe Angina, TOTAL SCORE = 1. snw 15:30 Special discussion: Based on the patient's history, exam, and Dx evaluation, there is snw no indication for emergent intervention or inpatient Tx. It is understood by the patient/guardian that if the Sx's persist or worsen they need to return immediately for re-evaluation. Based on the history and exam findings, there is no indication for further emergent testing or inpatient evaluation. 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 I discussed with the patient/guardian the need to see the joiner for further evaluation of the symptoms. I discussed with the patient/guardian the need to see the primary care provider for further evaluation of the symptoms. 15:30 Counseling: I had a detailed discussion with the patient and/or guardian regarding: the snw historical points, exam findings, and any diagnostic results supporting the discharge/admit diagnosis, the presence of at least one elevated blood pressure reading (>120/80) during this emergency department visit, lab results, radiology results, the need for outpatient follow up, for definitive care, to return to the emergency department if symptoms worsen or persist or if there are any questions or concerns that arise at home. Response to treatment: the patient's symptoms have markedly improved after treatment. 06/14 11:37 Order name: Basic Metabolic Panel; Complete Time: 12:26 06/14 11:37 Order name: CBC with Diff; Complete Time: 12:29 06/14 11:37 Order name: LFT's; Complete Time: 12:26 06/14 11:37 Order name: Magnesium; Complete Time: 12:26 06/14 11:37 Order name: NT PRO-BNP; Complete Time: 12:06/14 11:37 Order name: PT-INR; Complete Time: 12:26 06/14 11:37 Order name: Troponin HS; Complete Time: 12:26 06/14 11:37 Order name: Lipase; Complete Time: 12:26 06/14 11:37 Order name: Chest Pa And Lat (2 Views) XRAY; Complete Time: 13:45 06/14 11:38 Order name: US Abdomen Limited; Complete Time: 12:45 06/14 13:12 Order name: Troponin HS; Complete Time: 14:54 06/14 11:37 Order name: EKG; Complete Time: 11:38 06/14 11:37 Order name: Cardiac monitoring; Complete Time: 12:46 06/14 11:37 Order name: EKG - Nurse/Tech; Complete Time: 12:00 06/14 11:37 Order name: IV Saline Lock; Complete Time: 12:00 06/14 11:37 Order name: Labs collected and sent; Complete Time: 12:00 06/14 11:37 Order name: O2 Per Protocol; Complete Time: 11:55 06/14 11:37 Order name: O2 Sat Monitoring; Complete Time: 11:55 06/14 13:12 Order name: EKG; Complete Time: 13:12 06/14 13:12 Order name: EKG - Nurse/Tech; Complete Time: 14:28 snw EC:52 Rate is 64 beats/min. Rhythm is regular. QRS [place] is Normal. No Q waves. T waves are snw Inverted in lead aVR. T waves are Flattened in lead III. Clinical impression: NSR w/ Non-specific ST/T Changes. 14:30 Rate is 55 beats/min. Rhythm is regular. QRS [place] is Normal. CO interval is normal. No snw ST changes noted. Clinical impression: Sinus bradycardia. Administered Medications: 11:59 Drug: Aspirin Chewable Tablet 324 mg Route: PO; ld1 12:01 Follow up: Response: No adverse reaction ld1 14:14 Follow up: Response: No adverse reaction ld1 11:59 Drug: Dicyclomine 20 mg Route: PO; ld1 12:01 Follow up: Response: No adverse reaction ld1 14:13 Follow up: Response: No adverse reaction ld1 11:59 Drug: ProTONIX (pantoprazole) 40 mg Route: IVP; Site: right antecubital; ld1 12:01 Follow up: Response: No adverse reaction ld1 14:13 Follow up: Response: No adverse reaction ld1 14:13 Drug: Simethicone 240 mg Route: PO; ld1 Disposition: 19:21 Co-signature as Attending Physician, Jonathon ELLIOTT was immediately available on-site ms3 in the Emergency Department for consultation in the care of the patient. Disposition Summary: 06/14/22 16:01 Discharge Ordered Location: Home snw Condition: Stable snw Diagnosis - Chest pain, unspecified snw - Gastro-esophageal reflux disease without esophagitis snw Followup: snw - With: Emergency Department - When: As needed - Reason: Worsening of condition Followup: snw - With: Private Physician - When: 2 - 3 days - Reason: Recheck today's complaints, Continuance of care, Re-evaluation by your physician Discharge Instructions: - Discharge Summary Sheet snw - Nonspecific Chest Pain, Adult snw - Food Choices for Gastroesophageal Reflux Disease, Adult snw - Gastroesophageal Reflux Disease, Adult snw - Aspirin and Your Heart snw - Gas and Gas Pains, Pediatric snw - Form - Blood Pressure Record Sheet snw Forms: - Work release form snw - Medication Reconciliation Form snw - Thank You Letter snw - Antibiotic Education snw - Prescription Opioid Use snw Prescriptions: - Protonix 40 mg Oral Tablet - take 1 tablet by ORAL route once daily; 30 tablet; Refills: 0, Product snw Selection Permitted - Gas-X - take 240 milligram by ORAL route 1-2 times daily; 30 capsule; Refills: 0, snw Product Selection Permitted - dicyclomine 20 mg Oral Tablet - take 1 tablet by ORAL route 3 times per day; 30 tablet; Refills: 0, Product snw Selection Permitted Signatures: Dispatcher [employer] EDMS Neena Will, SHIFT LEADER-C SHIFT LEADER-Najmaw Lor Waterman, RN RN ss Jonathon Somers, DO ms3 Beatriz Amaya RN RN ld1 Corrections: (The following items were deleted from the chart) 12:47 11:52 Rate is 64 beats/min. Rhythm is regular. QRS [place] is Normal. Q waves are Present snw in leads aVR, V2, V4, V5. T waves are Inverted in lead aVR. T waves are Flattened in lead III. Clinical impression: NSR w/ Non-specific ST/T Changes. snw
[2022-06-14 17:19] VITALS: TEMP 98.6; O2SAT 100
[2022-06-14 17:25] VITALS: BP 120/82
--- NOTE | 2022-06-15 12:28 | EKG ---
Test Date: 2022-06-14 Test Time: 14:30:14 Manager Interface: ASHLI MEASUREMENT RESULTS: Intervals: Rate: 55 NV: 152 QRSD: 72 QT: 440 QTc: 420 [place]: P: 78 NV: 152 QRS: 80 T: 63 INTERPRETIVE STATEMENTS: Sinus bradycardia Septal infarct, age undetermined Abnormal ECG Compared to ECG 06/14/2022 11:51:33 Sinus rhythm no longer present Myocardial infarct finding still present Electronically Signed On 06-15-22 12:25:12 [employer]NALY[employer]ER [employer] by Ric Pennington
--- NOTE | 2022-06-15 12:29 | EKG ---
Test Date: 2022-06-14 Test Time: 11:51:33 Mandarin Chinese Teacher: PRIYA MEASUREMENT RESULTS: Intervals: Rate: 64 DE: 128 QRSD: 78 QT: 428 QTc: 441 [place]: P: 53 DE: 128 QRS: 51 T: 33 INTERPRETIVE STATEMENTS: Normal sinus rhythm Septal infarct, age undetermined Abnormal ECG Compared to ECG 08/11/2018 16:26:04 Myocardial infarct finding now present Electronically Signed On 06-15-22 12:25:30 [employer] by Ric Pennington
== END 2022-06-14 17:05 | disposition home or self-care (01) ==
LOC: ER 11:16
DX: K21.9 Gastro-esophageal reflux disease without esophagitis (principal); I10 Essential (primary) hypertension; Z88.0 Allergy status to penicillin
CPT/HCPCS: 93005 ×2; 85025; 80048; 36415; 83735; 85610; 80076; 84484 ×2; 83690; 83880; 71046; 76705; 96374; 99285; C9113

== ENCOUNTER 2022-12-04 19:10 | Emergency (ER) | payer BC, OTHER ==
--- OUTSIDE RECORDS SUMMARY | 2022-12-04 19:14 | XMS REPORT | Continuity of Care Document ---
:1975 Author Organization [facility] t Address [address] [facility]. [address] [place] [address] Care Team Providers Name Role Phone Donna Osei Primary Care Physician [phone] PEGGY FITZGERALD Attending Clinician Unavailable Dionne Poole MD Attending Clinician DIONNE POOLE Attending Clinician Unavailable Doctor Unassigned, [place] Attending Clinician Unavailable MANDIE ATKINS Attending Clinician Unavailable Mandie Atkins MD Attending Clinician Crissy Banks Attending Clinician Donna Osei Attending Clinician [phone] DONNA MAYORGA Attending Clinician Unavailable Gracie Garcia Attending Clinician GRACIE ZHOU Attending Clinician Unavailable Azeem [facility] Resident Attending Clinician Unavailable Ramesh Santizo MD Attending Clinician Toshia Garcia Attending Clinician Tian BERMEO, Barak Rendon Attending Clinician [phone] Chandan BERMEO, Vicky Attending Clinician Cornelia CHENG, Carla Paez Attending Clinician Wilfredo BERMEO, Ashu Mathew Attending Clinician ASHU VILLALOBOS Attending Clinician Unavailable Wilfrdeo BERMEO, Ashu Mathew Admitting Clinician ASHU VILLALOBOS Admitting Clinician Unavailable Payers Payer Name Policy Type Policy Number Effective Date Expiration Date S jessika [facility] [id number] 2019 CHOICE MEDICAID 00:00:00 Problems Condition Condition Condition Status Onset Resolution Last Treating Co mments Source Name Details Category Date Date Treatment Clinician Date Lump or Lump or Disease Active Univers mass in mass in 8-05 ity of breast breast 00:00: [place] [facility] S/P S/P Disease Active Univers hysterecto hysterecto 2-18 it y of my my 00:00: [place] [facility] Pelvic Pelvic Disease Active Overview: Univer s pain pain 1-16 Formattin ity of 00:00: g of this [place] note Medical might be Branch different from the original. Added automatic ally from request for surgery [id number] Vaginal Vaginal Disease Active 2018-05 Univers discharge discharge 1-07 ity of 00:00: [place] [facility] Well woman Well woman Disease Active U nivers exam exam 4-30 ity of 00:00: [place] [facility] Depression Depression Disease Active U nivers 3-11 ity of 00:00: [place] [facility] History of History of Disease Active Overview : Univers female female 3-11 Formattin ity of sterilizat sterilizat 00:00: g of this [place] ion ion note Medical might be Branch different from the original. Essure Contracept Contracept Disease Active U nivers augustus augustus 3-11 ity of management management [place] Essential Essential Disease Active Overview: Univers hypertensi hypertensi 7-08 Formattin ity of on on 00:00: g of this [place] 00 note Medical might be Branch different from the original. ICD10 Diagnosis Term Women Specialist Utility Allergies, Adverse Reactions, Alerts Allergy Allergy [...] 2012-07-21 Cigarette Smoker University of use 00:00:00 [facility] Exposure to 2021-04-01 2021-05-01 Not sure University of SARS-CoV-2 (event) 00:00:00 15:14:00 [facility] Alcohol intake 2021-05-01 2021-05-01 Current University of 00:00:00 00:00:00 non-drinker of [facility] alcohol Branch (finding) Cigarettes smoked 2021-01-21 2021-01-21 Univers ity of current (pack per 00:00:00 00:00:00 [place] ) - Reported Branch Tobacco use and 2021-01-21 2021-01-21 Current user Univers ity of exposure 00:00:00 00:00:00 [facility] Sex Ass[birth year] At [birth year] Universit y of 00:00:00 00:00:00 [facility] Smoking Status Start Date Stop Date Source Current some day smoker 2021-01-21 00:00:00 Univ ersity of [place] [facility] [place] Medications Ordered Filled Start Stop Current Ordering Indication Dosage Frequency Signature Comments Components Source Medication Medication Date Date Medication? Clinician (SIG) Name Name buPROPion 2020-0 Yes 75mg Take 75 mg Un samantha 75 mg 9-01 by mouth ity of tablet 13:20: daily. [address] Branch buPROPion 2020-0 Yes 75mg Take 75 mg Un samantha 75 mg 9-01 by mouth ity of tablet 13:20: daily. [address] buPROPion 2020-0 Yes 75mg Take 75 mg Un samantha 75 mg 9-01 by mouth ity of tablet 13:20: daily. [address] Branch HYDROcodone 2020-0 Yes [id number] 1{tbl} Take 1 Univers -acetaminop 2-21 tablet by ity of hen 5-325 00:00: mouth [place] mg tablet 00 every 6 Medical (six) Branch hours as needed for Pain (scale 7-10). ibuprofen 2020-0 Yes [id number] 600mg Take 1 Univers 600 mg 2-21 tablet by ity of tablet 00:00: mouth [place] 00 every 6 Medical (six) Branch hours as needed for Pain (scale 4-6). cyclobenzap 2020-0 Yes [id number] 10mg Take 1 Univers rine 10 mg 2-21 tablet by ity of tablet 00:00: mouth 3 [place] 00 (three) Medical times Branch daily. HYDROcodone 2020-0 Yes [id number] 1{tbl} Take 1 Univers -acetaminop 2-21 tablet by ity of hen 5-325 00:00: mouth [place] mg tablet 00 every 6 Medical (six) Branch hours as needed for Pain (scale 7-10). ibuprofen 2020-0 Yes [id number] 600mg Take 1 Univers 600 mg 2-21 tablet by ity of tablet 00:00: mouth [place] 00 every 6 Medical (six) Branch hours as needed for Pain (scale 4-6). cyclobenzap 2020-0 Yes [id number] 10mg Take 1 Univers rine 10 mg 2-21 tablet by ity of tablet 00:00: mouth 3 [place] 00 (three) Medical times Branch daily. HYDROcodone 2020-0 Yes [id number] 1{tbl} Take 1 Univers -acetaminop 2-21 tablet by ity of hen 5-325 00:00: mouth [place] mg tablet 00 every 6 Medical (six) Branch hours as needed for Pain (scale 7-10). ibuprofen 2020-0 Yes [id number] 600mg Take 1 Univers 600 mg 2-21 tablet by ity of tablet 00:00: mouth [place] 00 every 6 Medical (six) Branch hours as needed for Pain (scale 4-6). cyclobenzap 2020-0 Yes [id number] 10mg Take 1 Univers rine 10 mg 2-21 tablet by ity of tablet 00:00: mouth 3 (three) Medical times Branch daily. hydrOXYzine 2020-0 Yes TK 1 T PO U nivers 25 mg 1-02 Q 8 H PRN ity of tablet 00:00: [place] [facility] ALPRAZolam 2020-0 Yes TK 1 T PO Un samantha 0.5 mg 1-02 QHS ity of tablet 00:00: [place] [address] Medical Branch gabapentin 2020-0 Yes TK 1 T PO Un samantha 800 mg 1-02 BID ity of tablet 00:00: [place] [address] Medical Branch amLODIPine 2020-0 Yes TK 1 T PO Un samantha 10 mg 1-02 ONCE A DAY ity of tablet 00:00: [place] [address] Medical Branch hydrOXYzine 2020-0 Yes TK 1 T PO U nivers 25 mg 1-02 Q 8 H PRN ity of tablet 00:00: [place] [facility] ALPRAZolam 2020-0 Yes TK 1 T PO Un samantha 0.5 mg 1-02 QHS ity of tablet 00:00: [place] [address] Medical Branch gabapentin 2020-0 Yes TK 1 T PO Un samantha 800 mg 1-02 BID ity of tablet 00:00: [place] [address] Medical Branch amLODIPine 2020-0 Yes TK 1 T PO Un samantha 10 mg 1-02 ONCE A DAY ity of tablet 00:00: [place] [address] Medical Branch hydrOXYzine 2020-0 Yes TK 1 T PO U nivers 25 mg 1-02 Q 8 H PRN ity of tablet 00:00: [place] [facility] ALPRAZolam 2020-0 Yes TK 1 T PO Un samantha 0.5 mg 1-02 QHS ity of tablet 00:00: [place] [address] Medical Branch gabapentin 2020-0 Yes TK 1 T PO Un samantha 800 mg 1-02 BID ity of tablet 00:00: [place] [address] Medical Branch amLODIPine 2020-0 Yes TK 1 T PO Un samantha 10 mg 1-02 ONCE A DAY ity of tablet 00:00: [address] FLUoxetine Yes [id number] 10mg Take 1 Cap Univers (PROZAC) 10 3-11 by mouth ity of mg capsule 00:00: daily. [place] [facility] hydrochloro Yes [id number] 25mg Take 1 Tab Univers thiazide 3-11 by mouth ity of (ESIDRIX) 00:00: daily. [place] 25 mg Medical tablet Branch FLUoxetine Yes [id number] 10mg Take 1 Cap Univers (PROZAC) 10 3-11 by mouth ity of mg capsule 00:00: daily. [place] [facility] hydrochloro Yes [id number] 25mg Take 1 Tab Univers thiazide 3-11 by mouth ity of (ESIDRIX) 00:00: daily. [place] 25 mg Medical tablet Branch FLUoxetine Yes [id number] 10mg Take 1 Cap Univers (PROZAC) 10 3-11 by mouth ity of mg capsule 00:00: daily. [address] hydrochloro Yes [id number] 25mg Take 1 Tab Univers thiazide 3-11 by mouth ity of (ESIDRIX) 00:00: daily. [place] mg [facility] Immunizations Ordered Filled Immunization Date Status Comments [facility] e Immunization Name Name Influenza Virus 2013-02-06 Completed Universit y of Vaccine 00:00:00 [facility] Influenza Virus 2013-02-06 Completed Universit y of Vaccine 00:00:00 [facility] Influenza Virus 2013-02-06 Completed Universit y of Vaccine 00:00:00 [facility] TDAP 2013-01-19 Completed University 00:00:00 [facility] TDAP 2013-01-19 Completed University of 00:00:00 [facility] TDAP 2013-01-19 Completed University of 00:00:00 [facility] Varicella 2012-09-01 Completed University of (varivax)(chicken 00:00:00 [facility] edical pox) Branch Varicella 2012-09-01 Completed University of (varivax)(chicken 00:00:00 [place] [facility] edical pox) Branch Varicella 2012-09-01 Completed University of (varivax)(chicken 00:00:00 [facility] edical pox) Branch Rubella 2012-02-15 Completed University of 00:00:00 [facility] TDAP 2012-02-15 Completed University of 00:00:00 [facility] Branch Rubella 2012-02-15 Completed University of 00:00:00 [facility] Branch TDAP 2012-02-15 Completed University of 00:00:00 [facility] Branch Rubella 2012-02-15 Completed University of 00:00:00 [facility] Branch TDAP 2012-02-15 Completed University of 00:00:00 [place] [facility] Td 2000-05-23 Completed University of 00:00:00 [facility] Branch Td 2000-05-23 Completed University of 00:00:00 [facility] Td 2000-05-23 Completed University of 00:00:00 [facility] Vital Signs Vital Name Observation Time Observation Value Comments Source Systolic blood 2021-05-01 21:15:00 117 mm[Hg] Univer sity of pressure [facility] Diastolic blood 2021-05-01 21:15:00 85 mm[Hg] Unive rsity of [facility] Heart rate 2021-05-01 21:15:00 84 /min [facility] Body temperature 2021-05-01 21:15:00 36.56 Sarah [facility] Respiratory rate 2021-05-01 21:15:00 18 /min [facility] Body height 2021-05-01 21:15:00 157.5 cm [facility] Body weight 2021-05-01 21:15:00 56.019 kg [facility] BMI 2021-05-01 21:15:00 22.59 kg/m2 [facility] Oxygen saturation in 2021-05-01 21:15:00 99 /min [facility] Arterial blood by [facility] Pulse oximetry Branch Procedures Procedure Date / Time Performing Clinician Source Performed PATIENT FINANCIAL 2021-05-01 06:01:00 Doctor Unassigned, [facility] RESPONSIBILITY - ALL [place] [facility] FORMS Encounters Start End Encounter Admission Attending Care Care Encounter Source Date/Time Date/Time Type Type Clinicians Facility Department ID 2021-08-04 2021-08-04 Outpatient R EREN FITZGERALD DEALAN [id number] [facility] 13:00:00 13:00:00 PEGGY acevedo [facility] 2021-05-29 2021-05-29 Telephone [facility] [id number] Univers 00:00:00 00:00:00 Dionne Hough SPECIALTY 350.1.13.10 ity of CARE 4.2.7.2.686 [facility] CENTER AT [id number] Al krys RAMIREZ [address] [place] [address] 2021-05-01 2021-05-01 Office [facility] [id number] Univers 15:04:03 16:02:40 Visit Dionne Hough SPECIALTY 350.1.13.10 ity of CARE 4.2.7.2.686 [facility] CENTER AT [id number] Al krys RAMIREZ [address] [place] [address] 2021-05-01 2021-05-01 [facility] [id number] Univers 15:00:00 16:02:40 DIONNE [facility] 2021-05-01 2021-05-01 [facility] [id number] Univers 15:00:00 16:02:40 [facility] 2021-05-01 2021-05-01 Orders Doctor DEEJAY 1.2.840.114 [id number] Univers 00:00:00 00:00:00 Only Unassigned, OG 350.1.13.10 ity of [facility] 4.2.7.2.686 Gee as [phone] [address] 2021-04-21 2021-04-21 [facility] [id number] Univers 14:00:00 14:33:31 MANDIE [facility] 2021-04-21 2021-04-21 Outpatient R MILLY [facility] [id number] Univers 14:00:00 14:33:31 MANDIE [facility] 2021-04-21 2021-04-21 Outpatient [facility] [id number] Univers 14:00:00 14:33:31 MANDIE [facility] 2021-04-21 2021-04-21 [facility] [id number] Univers 13:59:41 14:33:31 Visit Mandie GANDARA 350.1.13.10 i ty of [place] [id number] Al dical NAL [address] [facility] 2021-04-08 2021-04-08 Outpatient R [facility] [id number] Univers 14:30:00 14:30:00 [facility] 2021-04-07 2021-04-07 Office [facility] [id number] Univers 14:07:49 14:47:42 Visit Mandie Crescencio JULIOCESAR 350.1.13.10 i ty of [place]2.7.[place] [id number] Al dical NAL 419 [facility] 2021-04-07 2021-04-07 Outpatient R [facility] [id number] Univers 14:00:00 14:47:42 MANDIE [facility] 2021-04-01 2021-04-01 Telephone [facility] 1.2.840.114 [id number] Univers 00:00:00 00:00:00 Crissy Phelps [employer] 350.1.13.10 it y of [facility] 4.2.7.2.686 Gee as MATERNAL [id number] Med ical & CHILD [address] [place] [address] 2021-03-31 2021-03-31 [facility] 1.2.840.114 [id number] Univers 12:26:13 23:59:00 Encounter Donna GANDARA 350.1.13.10 ity of [place]7.[place] [phone] [facility] [address] [place] 2021-03-31 2021-03-31 Outpatient R [facility] [id number] Univers 12:25:33 12:25:33 DONNA lee f [facility] 2021-03-31 2021-03-31 [facility] 1.2.840.114 [id number] Univers 12:25:33 12:25:33 Encounter Donna GANDARA 350.1.13.10 ity of [place] 4.2.7.2.686 [facility] [id number] [facility] [address] [place] 2021-03-31 2021-03-31 Orders Doctor DEEJAY 1.2.840.114 [id number] Univers 00:00:00 00:00:00 Only Unassigned, OG 350.1.13.10 ity of [place] [facility] 4.2.7.2.686 Gee as [phone] [facility] [address] [place] 2021-02-24 2021-02-24 Outpatient R MUKESH [facility] [id number] Univers 14:00:00 14:00:00 DONNA lee [facility] 2021-01-27 2021-01-27 [facility] 1.2.840.114 [id number] Univers 06:37:08 23:59:00 Encounter Donna COFFEY 350.1.13.10 ity of [facility] 4.2.7.2.686 [facility] AT [phone] Al krys RAMIREZ [address] [place] [address] 2021-01-27 2021-01-27 Outpatient R MUKESH [facility] [id number] Univers 00:00:00 00:00:00 DONNA hodge [facility] 2021-01-21 2021-01-21 Office Donna Mayorga [facility] [id number] Univers 12:55:05 14:37:00 Visit Gracie Zhou [employer] 350.1.13.10 ity of [facility] 4.2.7.2.686 Gee as MATERNAL [id number] Med ical & CHILD [address] [place] [address] 2021-01-21 2021-01-21 Outpatient R ABELARDO [facility] [id number] Univers 13:15:00 13:15:00 GRACIE lee [facility] 2021-01-21 2021-01-21 Orders Doctor VILLALBA 1.2.840.114 [id number] Univers 00:00:00 00:00:00 Only Unassigned, OG 350.1.13.10 ity of [place] [facility] 4.2.7.2.686 Gee as [phone] [place] [address] [place] 2021-01-21 2021-01-21 Orders Doctor DEEJAY 1.2.840.114 [id number] Univers 00:00:00 00:00:00 Only Unassigned, OG 350.1.13.10 ity of [facility] 4.2.7.2.686 Gee as [phone] [address] 2020-03-07 2020-03-07 Telephone [facility] 1.2.840.114 [id number] 00:00:00 00:00:00 Donna Ventura [employer] 350.1.13.10 [facility] 4.2.7.2.686 MATERNAL [phone] & CHILD [address] [place] [address] 2020-03-07 2020-03-07 Telephone [facility] 1.2.840.114 [id number] Univers 00:00:00 00:00:00 Donna C [employer] 350.1.13.10 ity of [facility] 4.2.7.2.686 Gee as MATERNAL [phone] Med ical & CHILD [address] [place] [address] 2020-03-06 2020-03-06 [facility] 1.2.840.114 [id number] Univers 12:30:00 23:59:00 Encounter Donna Gandara 350.1.13.10 ity [facility] 4.2.7.2.686 [place] [facility] [phone] [facility] [address] [place] 2020-03-06 2020-03-06 [facility] [id number] Univers 00:00:00 00:00:00 DONNA ity o f [facility] 2020-02-11 2020-02-11 Telephone [facility] 1.2.840.114 [id number] Univers 00:00:00 00:00:00 Donna C [employer] 350.1.13.10 ity of [facility] 4.2.7.2.686 Gee as MATERNAL [phone] [facility] ical & CHILD [address] [place] [address] 2020-02-06 2020-02-06 [facility] 1.2.840.114 [id number] Univers 06:28:49 23:59:00 Encounter Donna Whitehead SPECIALTY 350.1.13.10 ity of [facility] 4.2.7.2.[place] CENTER AT [id number] Al krys VICTORY 815 [facility] 2020-02-06 2020-02-06 Outpatient R AKINSIPE, [facility] [id number] Univers 00:00:00 00:00:00 DONNA ity o f [facility] 2020-01-02 2020-01-02 Telephone Akinsipe, [facility] 1.2.840.114 [id number] Univers 00:00:00 00:00:00 Donna Whitehead [place] 350.1.13.10 ity of [place] Profess[place] [phone] Al krys nal [address] [facility] 2019-12-26 2019-12-26 Office Mukesh, [facility] [id number] Univers 13:26:38 14:33:37 Visit Donna Whitehead [employer] 350.1.13.10 ity of [facility] 4.2.7.2.686 Gee as MATERNAL [id number] Med ical & CHILD 107 [facility] 2019-12-26 2019-12-26 Outpatient R AKINSIPE, [facility] [id number] Univers 13:15:00 13:15:00 DONNA ity o f [facility] 2019-12-17 2019-12-17 Outpatient R AKINSIPE, [facility] [id number] Univers 14:15:00 14:15:00 DONNA ity o f [facility] 2019-12-12 2019-12-12 Outpatient R AKINSIPE, [facility] [id number] Univers 14:15:00 14:15:00 DONNA ity o f [facility] 2019-12-03 2019-12-03 Outpatient R AKINSIPE, [facility] [id number] Univers 13:15:00 13:15:00 DONNA ity o f [facility] 2019-11-16 2019-11-16 Outpatient R AKINSIPE, [facility] [id number] Univers 10:00:00 10:00:00 DONNA ity o f [facility] 2019-11-14 2019-11-14 [facility] [id number] Univers 10:00:00 10:00:00 DONNA ity o f [facility] 2019-08-28 2019-08-28 Outpatient R [facility] [id number] Univers 13:00:00 13:00:00 ity of [facility] 2019-08-28 2019-08-28 Telemedici Azeem [facility] Resident UNIVERSIT 1. 2.840.114 [id number] Univers 07:21:41 07:36:41 ne Visit Ramesh Santizo Y HEALTH 350.1.13.10 ity of CL[place]2.[place] [id number] [address] 2019-08-21 2019-08-21 Telephone DIYA Pierre 1.2.840.114 [id number] Univers 00:00:00 00:00:00 Toshia Y HEALTH 350.1.13.10 i ty of CL[place]2.7.2.[place] [id number] [address] 2019-08-17 2019-08-17 Letter Domingo UNIVERSIT 1.2.840.114 [id number] Univers 00:00:00 00:00:00 (Out) Barak lee Y HEALTH 350.1.13.10 ity of [facility] CLINICS 4.2.7.2.[place] [id number] [address] 2019-08-01 2019-08-01 Telephone DIYA Pierre 1.2.840.114 [id number] Univers 00:00:00 00:00:00 Toshia Y HEALTH 350.1.13.10 i ty of [place] 4[place]7.2.[place] [id number] [address] 2019-07-19 2019-07-19 Office Azeem [facility] Resident UNIVERSIT 1.2.8 40.114 [id number] Univers 09:03:18 09:54:08 Visit Vicky Hawley Y HEALTH 350.1.13.10 ity of [place] 4[place]2.7.2.[place] [id number] [address] 2019-07-19 2019-07-19 Outpatient R [facility] [id number] Univers 09:00:00 09:00:00 ity of [facility] 2019-07-17 2019-07-17 Orders Doctor DEEJAY 1.2.840.114 [id number] Univers 00:00:00 00:00:00 Only Unassigned, OG 350.1.13.10 ity of [place] [facility] 4.2.7.2.686 Gee as [id number] [facility] [address] [place] 2019-07-16 2019-07-16 Transition Angel Locke 1.2.840.114 [id number] Univers 00:00:00 00:00:00 of Care Carla Philippe Smith 350.1.13.10 i ty of [place]2.7[place]2.[place] [id number] [facility] 403 Branch 2019-07-10 2019-07-13 Hospital Letitia Villalobos 1.2.267.439 [id number] Univers 05:11:29 11:39:00 Encounter Ashu Paez 350.1.13.10 ity of Hospital 4.2.7.2.686 Gee as [phone] [facility] 092 Branch 2019-07-10 2019-07-13 [facility] [id number] Univers 05:11:29 11:39:00 ASHU ity of [facility] 2019-07-10 2019-07-10 Telephone DEANDRA Villalobos 1.2.840.114 [id number] Univers 00:00:00 00:00:00 Ashu L Y HEALTH 350.1.13.10 i ty of [place]2.[place] [phone] [facility] 113 Branch 2019-07-05 2019-07-05 Orders Doctor DEEJAY 1.2.840.114 [id number] Univers 00:00:00 00:00:00 Only Unassigned, OG 350.1.13.10 ity of [place] [facility] 4.2.7.2.686 Gee as [phone] [facility] [address] [place] 2019-06-07 2019-06-07 Office Pool, [facility] Resident UNIVERSIT 1.2.8 40.114 [id number] Univers 10:17:23 12:13:33 Visit Ashu Villalobos Y HEALTH 350.1.13.10 ity of CL[place] 4.2.[place].2.[place] [id number] [facility] 113 Branch 2019-04-18 2019-04-18 Orders Doctor DEEJAY 1.2.840.114 [id number] Univers 00:00:00 00:00:00 Only Unassigned, OG 350.1.13.10 ity of [facility] 4.2.7.2.686 Gee as [phone] [facility] 009 Branch Results This patient has no known results.
--- NOTE | 2022-12-04 20:06 | ER ---
Nurse's Notes [facility] Name: Florentino Chavez Age: 47 yrs Sex: Female : 1975 Arrival Date: 12/04/2022 Time: 19:10 Bed 12 Private MD: Diagnosis: Contusion of right second toe Presentation: 12/04 19:20 Chief complaint: Patient states: I hit my toe on some furniture today around 3 PM and kd3 my second toe on the right side looks weird so i am not sure if it is just swollen or if it is broken. It just looks weird. Coronavirus screen: Vaccine status: Patient reports receiving the 2nd dose of the covid vaccine. Ebola Screen: No symptoms or risks identified at this time. Initial Sepsis Screen: Does the patient meet any 2 criteria? No. Patient's initial sepsis screen is negative. Does the patient have a suspected source of infection? No. Patient's initial sepsis screen is negative. Risk Assessment: Do you want to hurt yourself or someone else? Patient reports no desire to harm self or others. Onset of symptoms was December 04, 2022. 19:20 Method Of Arrival: Ambulatory kd3 19:20 Acuity: MARITA 4 kd3 Triage Assessment: 19:20 General: Appears in no apparent distress. Behavior is calm, cooperative. Pain: kd3 Complains of pain in right second toe and Right second toenail. Neuro: Level of Consciousness is awake, alert, obeys commands, Oriented to person, place, time, situation. 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 - Social history:: Smoking status: Patient reports the use of cigarette tobacco products, denies chronic smoking, but will smoke occasionally. - Family history:: not pertinent. Screenin:08 [facility] ED Fall Risk Assessment (Adult) History of falling in the last 3 months, kd3 including since admission No falls in past 3 months (0 pts) Confusion or Disorientation No (0 pts) Intoxicated or Sedated No (0 pts) Impaired Gait No (0 pts) Mobility Assist Device Used No (0 pt) Altered Elimination No (0 pt) Score/Fall Risk Level 0 - 2 = Low Risk Maintained a safe environment. Abuse screen: Denies threats or abuse. Denies injuries from another. Nutritional screening: No deficits noted. Tuberculosis screening: No symptoms or risk factors identified. Vital Signs: 19:18 Pulse 87; Resp 19; Temp 98.2(TE); Pulse Ox 98% on R/A; Weight 58.06 kg; Height 5 ft. 2 kd3 in. ; 19:19 BP 124 / 80; kd3 19:18 Body Mass Index 23.41 (58.06 kg, 157.48 cm) kd3 ED Course: 19:13 Patient arrived in ED. ja2 19:20 Arm band placed on left wrist. kd3 19:22 Gadiel Powell MD is Attending Physician. rt 19:22 Triage completed. kd3 19:46 Foot Right 3 View XRAY In Process Unspecified. EDMS 20:08 Rossana Carr, RN is Primary Nurse. kd3 20:09 Patient has correct armband on for positive identification. Provided Education on: . kd3 20:09 No provider procedures requiring assistance completed. Patient did not have IV access kd3 during this emergency room visit. Administered Medications: No medications were administered Medication: 20:09 VIS not applicable for this client. kd3 Outcome: 20:05 Discharge ordered by . rt 20:09 Discharged to home ambulatory. kd3 20:09 Condition: stable 20:09 Discharge instructions given to patient, Instructed on discharge instructions, follow up and referral plans. Demonstrated understanding of instructions, follow-up care. 20:09 Patient left the ED. kd3 Signatures: Dispatcher [employer] EDME Cecilia Shepard Rossana Harvey, PROSPER RN kd3 Gadiel Powell MD MD rt
--- NOTE | 2022-12-04 20:06 | EDPHYS ---
Physician Documentation [facility] Name: Florentino Chavez Age: 47 yrs Sex: Female : 1975 Arrival Date: 12/04/2022 Time: 19:10 Bed 12 Private MD: ED Physician Gadiel Powell HPI: 12/04 22:20 This 47 yrs old Black Female presents to ER via Ambulatory with complaints of Toe rt Injury. 22:21 Patient presents to the ED with injury to the right second toe. Patient states that she rt excellently kicked it while she was working onto a piece of furniture. She states that it looked strange, had some swelling to that region. Wishes to know if it is broken or not. Pain is aching nature, nonradiating, mild in severity, no other aggravating alleviating factors.. 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 - Social history:: Smoking status: Patient reports the use of cigarette tobacco products, denies chronic smoking, but will smoke occasionally. - Family history:: not pertinent. ROS: 22:21 Constitutional: Negative for fever, chills, and weight loss, Skin: Negative for injury, rt rash, and discoloration, Neuro: Negative for headache, weakness, numbness, tingling, and seizure, Psych: Negative for depression, anxiety, suicide ideation, homicidal ideation, and hallucinations. 22:21 MS/extremity: Positive for pain, swelling. Exam: 22:21 Constitutional: This is a well developed, well nourished patient who is awake, alert, rt and in no acute distress. Head/Face: Normocephalic, atraumatic. Skin: Warm, dry with normal turgor. Normal color with no rashes, no lesions, and no evidence of cellulitis. Neuro: Awake and alert, GCS 15, oriented to person, place, time, and situation. Cranial nerves II-XII grossly intact. Motor strength 5/5 in all extremities. Sensory grossly intact. Cerebellar exam normal. Normal gait. Psych: Awake, alert, with orientation to person, place and time. Behavior, mood, and affect are within normal limits. 22:21 Musculoskeletal/extremity: Swelling with bruising noted to the right second digit, no deformities noted.. Vital Signs: 19:18 Pulse 87; Resp 19; Temp 98.2(TE); Pulse Ox 98% on R/A; Weight 58.06 kg; Height 5 ft. 2 kd3 in. ; 19:19 BP 124 / 80; kd3 19:18 Body Mass Index 23.41 (58.06 kg, 157.48 cm) kd3 MDM: 19:49 Patient medically screened. rt 22:21 Differential diagnosis: Contusion, dislocation, fracture. Data reviewed: vital signs, rt nurses notes, radiologic studies. Independent interpretation of the following test(s) in the Emergency Department X-Ray: My interpretation is No fracture seen on interpretation of x-ray. Counseling: I had a detailed discussion with the patient and/or guardian regarding: the historical points, exam findings, and any diagnostic results supporting the discharge/admit diagnosis, radiology results, the need for outpatient follow up. 12/04 19:23 Order name: Foot Right 3 View XRAY rt Administered Medications: No medications were administered Disposition Summary: 12/04/22 20:05 Discharge Ordered Location: Home rt Problem: new rt Symptoms: are unchanged rt Condition: Stable rt Diagnosis - Contusion of right second toe rt Followup: rt - With: Private Physician - When: 2 - 3 days - Reason: Discharge Instructions: - Discharge Summary Sheet rt - Contusion rt Forms: - Medication Reconciliation Form rt - Thank You Letter rt - Antibiotic Education rt - Prescription Opioid Use rt - Patient Portal Instructions rt Signatures: Dispatcher [employer] Rossana Byrd RN RN kd3 Gadiel Powell MD MD rt
--- NOTE | 2022-12-04 20:12 | RAD REPORT ---
EXAM DESCRIPTION: RAD - Foot Right 3 View - 12/04/2022 7:44 pm CLINICAL HISTORY: PAIN COMPARISON: No comparisons FINDINGS: No fracture or dislocation is seen.
[2022-12-04 20:28] VITALS: TEMP 98.2; O2SAT 98
[2022-12-04 20:29] VITALS: BP 124/80
== END 2022-12-04 20:09 | disposition home or self-care (01) ==
LOC: ER 19:10
DX: S90.121A Contusion of right lesser toe(s) without damage to nail, initial encounter (principal)
CPT/HCPCS: 99283

== ENCOUNTER 2024-03-29 16:09 | Emergency (ER) | payer BC, OTHER ==
--- OUTSIDE RECORDS SUMMARY | 2024-03-29 16:12 | XMS REPORT | Continuity of Care Document ---
Author Name Unknown Address [address] [facility] [address]. [address] [place] [address] [facility] thconnect Address [address] [facility]. 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 Name Role Phone Donna Osei Primary Care Physicia n PEGGY FITZGERALD Attending Clinician Unavailable Dionne Poole MD Attending Clinician [phone] DIONNE POOLE Attending Clinician Unavailabl e Doctor Unassigned, [place] Attending Clinician U MANDIE Tai Attending Clinician UnavailMandie Bryan MD Attending Clinician [phone] Crissy Banks Attending Clinician [phone] Donna Osei Attending Clinician + DONNA MAYORGA Attending Clinician Unavail able Gracie Garcia Attending Clinician [phone] GRACIE ZHOU Attending Clinician Unavailab duran Gann [facility] Resident Attending Clinician Unavailab duran Santizo MD, Ramesh Attending Clinician [phone] Toshia Garcia Attending Clinician [phone] Tian BERMEO, Barak Rendon Attending Clinic radha Vicky Hawley MD Attending Clinician [phone] Cornelia CHENG, Carla Paez Attending Clinician [phone] Ashu Villalobos MD Attending Clinician [phone] ASHU VILLALOBOS Attending Clinician Unavailable Ashu Villalobos MD Admitting Clinician [phone] ASHU VILLALOBOS Admitting Clinician Unavailable Payers Payer Name Policy Type Policy Number Effective Date Expirati on Date Source [facility] MEDICAID [id number] 2019 00:00:00 Problems Condition Name Condition Details Condition Category Status Onset Date Resolution Date Last Treatment Date Treating Clinician Comments Source Lump or mass in breast Lump or mass in breast Disease Active 8-05 00:00: 00 [facility] S/P hysterecto my S/P hysterecto my Disease Active 2-18 00:00: 00 [facility] Pelvic pain Pelvic pain Disease Active 1-16 00:00: 00 Overview: Formattin g of this note might be different from the original. Added automatic ally from request for surgery [id number] [facility] Vaginal discharge Vaginal discharge Disease Active 2018-05 1-07 00:00: 00 [facility] Well woman exam Well woman exam Disease Active 4-30 00:00: 00 [facility] Depression Depression Disease Active 07-31 00:00: 00 [facility] History of female sterilizat ion History of female sterilizat ion Disease Active 07-31 00:00: 00 Overview: Formattin g of this note might be different from the original. Essure [facility] Contracept augustus management Contracept augustus management Disease Active 07-31 00:00: 00 [facility] Essential hypertensi on Essential hypertensi on Disease Active 11-27 00:00: 00 Overview: Formattin g of this note might be different from the original. 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 [facility] Allergies, Adverse Reactions, Alerts Allergy Name Allergy Type Status Severity Reaction(s) Onset Date Inactive Date Treating Clinician Comments Source SULFA (SULFONA MIDE ANTIBIOT ICS) Drug Class Active Unknown-Cmnt 12-15 00:00: 00 [facility] Sulfa (Sulfona mide Antibiot ics) Propensi ty to adverse reaction s Active Unknown - See comments 12-15 00:00: 00 [facility] Sulfa (Sulfona mide Antibiot ics) Propensi ty to adverse reaction s Active Unknown - See comments 12-15 00:00: 00 [facility] PENICILL INS Drug Class Active Rash 09-04 00:00: 00 [facility] Penicill ins Propensi ty to adverse reaction s Active Rash 09-04 00:00: 00 [facility] Penicill ins Propensi ty to adverse reaction s Active Rash 09-04 00:00: 00 [facility] Penicill ins Propensi ty to adverse reaction s Active Rash 09-04 00:00: 00 [facility] Social History Social Habit Start Date Stop Date Quantity Comments Source History of tobacco use 2012-07-21 00:00:00 Cigarette Smoker [facility] Exposure to SARS-CoV-2 (event) 2021-04-01 00:00:00 2021-05-01 15:14:00 Not sure [facility] History of Social function 2021-01-21 00:00:00 2021-01-21 00:00:00 [facility] Alcohol intake 2019-12-26 00:00:00 2019-12-26 00:00:00 Current non-drinker of alcohol (finding) [facility] Alcohol Comment 2018-08-28 00:00:00 2018-08-28 00:00:00 Socially [facility] Cigarettes smoked current (pack per day) - Reported 2018-08-28 00:00:00 2018-08-28 00:00:00 [facility] Tobacco use and exposure 2018-08-28 00:00:00 2018-08-28 00:00:00 User of smokeless tobacco [facility] Sex Ass[birth year] At [birth year] 00:00:00 [facility] Smoking Status Start Date Stop Date Source Current some day smoker 2021-01-21 00:00:00 [facility] Smokes tobacco daily 2018-08-28 00:00:00 [facility] Medications Ordered Medication Name Filled Medication Name Start Date Stop Date Current Medication? Ordering Clinician Indication Dosage Frequency Signature (SIG) Comments Components Source buPROPion 75 mg tablet 01-21 13:20: 20 Yes 75mg Take 75 mg by mouth daily. [facility] HYDROcodone -acetaminop hen 5-325 mg tablet 07-13 00:00: 00 Yes [id number] 1{tbl} Take 1 tablet by mouth every 6 (six) hours as needed for Pain (scale 7-10). [facility] ibuprofen 600 mg tablet 07-13 00:00: 00 Yes [id number] 600mg Take 1 tablet by mouth every 6 (six) hours as needed for Pain (scale 4-6). [facility] cyclobenzap rine 10 mg tablet 07-13 00:00: 00 Yes [id number] 10mg Take 1 tablet by mouth 3 (three) times daily. [facility] hydrOXYzine 25 mg tablet 05-24 00:00: 00 Yes TK 1 T PO Q 8 H PRN [facility] ALPRAZolam 0.5 mg tablet 05-24 00:00: 00 Yes TK 1 T PO QHS [facility] gabapentin 800 mg tablet 05-24 00:00: 00 Yes TK 1 T PO BID [facility] amLODIPine 10 mg tablet 05-24 00:00: 00 Yes TK 1 T PO ONCE A DAY [facility] FLUoxetine (PROZAC) 10 mg capsule -11 00:00: 00 Yes [id number] 10mg Take 1 Cap by mouth daily. [facility] hydrochloro thiazide (ESIDRIX) 25 mg tablet 2015-0 07-31 00:00: 00 Yes [id number] 25mg Take 1 Tab by mouth daily. [facility] Immunizations Ordered Immunization Name Filled Immunization Name Date Status Comments Source Influenza Virus Vaccine 2013-02-06 00:00:00 Completed [facility] Influenza Virus Vaccine 2013-02-06 00:00:00 Completed [facility] Influenza Virus Vaccine 2013-02-06 00:00:00 Completed [facility] TDAP 2013-01-19 00:00:00 Completed [facility] TDAP 2013-01-19 00:00:00 Completed [facility] TDAP 2013-01-19 00:00:00 Completed [facility] Varicella (varivax)(chicken pox) 2012-09-01 00:00:00 Completed [facility] Varicella (varivax)(chicken pox) 2012-09-01 00:00:00 Completed [facility] Varicella (varivax)(chicken pox) 2012-09-01 00:00:00 Completed [facility] Rubella 2012-02-15 00:00:00 Completed [facility] TDAP 2012-02-15 00:00:00 Completed [facility] Rubella 2012-02-15 00:00:00 Completed [facility] TDAP 2012-02-15 00:00:00 Completed [facility] Rubella 2012-02-15 00:00:00 Completed [facility] TDAP 2012-02-15 00:00:00 Completed [facility] Td 2000-05-23 00:00:00 Completed [facility] Td 2000-05-23 00:00:00 Completed [facility] Td 2000-05-23 00:00:00 Completed [facility] TD, NOS Unknown Completed [facility] Rubella Unknown Completed [facility] TDAP Unknown Completed [facility] Varicella (varivax)(chicken pox) Unknown Completed [facility] Influenza Virus Vaccine Unknown Completed [facility] Vital Signs Vital Name Observation Time Observation Value Comments S ource Systolic blood pressure 2021-05-01 21:15:00 117 mm[Hg] [facility] Diastolic blood pressure 2021-05-01 21:15:00 85 mm[Hg] [facility] Heart rate 2021-05-01 21:15:00 84 /min [facility] Body temperature 2021-05-01 21:15:00 36.56 Sarah [facility] Respiratory rate 2021-05-01 21:15:00 18 /min [facility] Body height 2021-05-01 21:15:00 157.5 cm [facility] Body weight 2021-05-01 21:15:00 56.019 kg [facility] BMI 2021-05-01 21:15:00 22.59 kg/m2 [facility] Oxygen saturation in Arterial blood by Pulse oximetry 2021-05-01 21:15:00 99 /min [facility] Procedures Procedure Date / Time Performed Performing Clinician Source PATIENT FINANCIAL RESPONSIBILITY - ALL FORMS 2021-05-01 06:01:00 Doctor Unassigned, Parlier [facility] Encounters Start Date/Time End Date/Time Encounter Type Admission Type Attending Clinicians Care Facility Care Department Encounter ID Source 2021-08-04 13:00:00 2021-08-04 13:00:00 Outpatient PEGGY TERAN [facility] [id number] [facility] 2021-05-29 00:00:00 2021-05-29 00:00:00 Telephone Dionne Poole [facility] [place] [id number] 350.1.13.10 4.2.7.2.686 [id number] [facility] 2021-05-01 15:04:03 2021-05-01 16:02:40 Office Visit Dionne Poole [facility] [place] [facility] 1.2.840.114 350.1.13.10 4.2.7.2.686 [id number] [facility] 2021-05-01 15:00:00 2021-05-01 16:02:40 Outpatient R DIONNE POOLE [facility] [id number] [facility] 2021-05-01 15:00:00 2021-05-01 16:02:40 Outpatient R ZULEMADIONNE [facility] [id number] [facility] 2021-05-01 00:00:00 2021-05-01 00:00:00 Orders Only Doctor Unassigned, [facility]lier [facility] 1..840.114 350.1.13.10 4.2.7.2.686 [id number] [facility] 2021-04-21 14:00:00 2021-04-21 14:33:31 Outpatient R MANDIE ATKINS [facility] [id number] [facility] 2021-04-21 14:00:00 2021-04-21 14:33:31 Outpatient R MANDIE ATKINS [facility] [id number] [facility] 2021-04-21 14:00:00 2021-04-21 14:33:31 Outpatient R MANDIE ATKINS [facility] [id number] [facility] 2021-04-21 13:59:41 2021-04-21 14:33:31 Office Visit Mandie Atkins [facility] 1..840.114 350.1.13.10 4.2.7.2.686 [id number] [facility] 2021-04-08 14:30:00 2021-04-08 14:30:00 Outpatient R MANDIE ATKINS [facility] [id number] [facility] 2021-04-07 14:07:49 2021-04-07 14:47:42 Office Visit Mandie Atkins [facility] 1..840.114 350.1.13.10 4.2.7.2.686 [id number] [facility] 2021-04-07 14:00:00 2021-04-07 14:47:42 Outpatient R MANDIE ATKINS [facility] [id number] [facility] 2021-04-01 00:00:00 2021-04-01 00:00:00 Telephone Crissy Sawyer [facility] 1.2.840.114 350.1.13.10 4.2.7.2.686 [id number] [facility] 2021-03-31 12:26:13 2021-03-31 23:59:00 Hospital Encounter Donna Mayorga [facility] 1.2840.114 350.1.13.10 4.2.7.2.686 [id number] [facility] 2021-03-31 12:25:33 2021-03-31 12:25:33 Outpatient R DONNA MAYORGA [facility] [id number] [facility] 2021-03-31 12:25:33 2021-03-31 12:25:33 Hospital Encounter Donna Mayorga [facility] 1.840.114 350.1.13.10 4.2.7.2.686 [id number] [facility] 2021-03-31 00:00:00 2021-03-31 00:00:00 Orders Only Doctor Unassigned, [place]lier [facility] 1.2840.114 350.1.13.10 4.2.7.2.686 [id number] [facility] 2021-02-24 14:00:00 2021-02-24 14:00:00 Outpatient R DONNA MAYORGA [facility] [id number] [facility] 2021-01-27 06:37:08 2021-01-27 23:59:00 Hospital Encounter Donna Mayorga [facility] 1.2840.114 350.1.13.10 4.2.7.2.686 [id number] [facility] 2021-01-27 00:00:00 2021-01-27 00:00:00 Outpatient DONNA ADAM [facility] [id number] [facility] 2021-01-21 12:55:05 2021-01-21 14:37:00 Office Visit Donna Mayorga Roshunda R [facility] 1.2840.114 350.1.13.10 4.2.7.2.686 [id number] [facility] 2021-01-21 13:15:00 2021-01-21 13:15:00 Outpatient GRACIE MOORE [facility] [id number] [facility] 2021-01-21 00:00:00 2021-01-21 00:00:00 Orders Only Doctor Unassigned, [place]lier [facility] 1.2840.114 350.1.13.10 4.2.7.2.686 [id number] [facility] 2021-01-21 00:00:00 2021-01-21 00:00:00 Orders Only Doctor Unassigned, Parlier [facility] 1.2.840.114 350.1.13.10 4.2.7.2.686 [id number] [facility] 2020-04-22 00:00:00 2020-04-22 00:00:00 Patient Secure Msg Doctor Unassigned, Parlier MAGGIE LEE KATIE 1.2840.114 350.1.13.10 4.2.7.2.686 [id number] [facility] 2020-03-07 00:00:00 2020-03-07 00:00:00 Telephone Donna Mayorga [facility] 1.2840.114 350.1.13.10 4.2.7.2.686 [id number] 2020-03-07 00:00:00 2020-03-07 00:00:00 Telephone Donna Mayorga [facility] 1.20.114 350.1.13.10 4.2.7.2.686 [id number] [facility] 2020-03-06 12:30:00 2020-03-06 23:59:00 Hospital Encounter Cliffordnorman Donna Whitehead [facility] 1.0.114 350.1.13.10 4.2.7.2.686 [id number] [facility] 2020-03-06 00:00:00 2020-03-06 00:00:00 Outpatient R DONNA MAYORGA [facility] [id number] [facility] 2020-02-11 00:00:00 2020-02-11 00:00:00 Telephone Donna Mayorga [facility] 1..114 350.1.13.10 4.2.7.2.686 [id number] [facility] 2020-02-06 06:28:49 2020-02-06 23:59:00 Hospital Encounter Donna Mayorga [facility] 1.20.114 350.1.13.10 4.2.7.2.686 [id number] [facility] 2020-02-06 00:00:00 2020-02-06 00:00:00 Outpatient R DONNA MAYORGA [facility] [id number] [facility] 2020-01-02 00:00:00 2020-01-02 00:00:00 Telephone Donan Mayorga [facility] 1.20.114 350.1.13.10 4.2.7.2.686 [id number] [facility] 2019-12-26 13:26:38 2019-12-26 14:33:37 Office Visit Donna Mayorga [place] [facility] 1.2.840.114 350.1.13.10 4.2.7.2.686 [id number] [facility] 2019-12-26 13:15:00 2019-12-26 13:15:00 Outpatient R DONNA MAYORGA [facility] [id number] [facility] 2019-12-17 14:15:00 2019-12-17 14:15:00 Outpatient R DONNA MAYORGA [facility] [id number] [facility] 2019-12-12 14:15:00 2019-12-12 14:15:00 Outpatient R DONNA MAYORGA [facility] [id number] [facility] 2019-12-03 13:15:00 2019-12-03 13:15:00 Outpatient R DONNA MAYORGA [facility] [id number] [facility] 2019-11-16 10:00:00 2019-11-16 10:00:00 Outpatient R DONNA MAYORGA [facility] [id number] [facility] 2019-11-14 10:00:00 2019-11-14 10:00:00 Outpatient R DONNA MAYORGA [facility] [id number] [facility] 2019-08-28 13:00:00 2019-08-28 13:00:00 Outpatient R [facility] [id number] [facility] 2019-08-28 07:21:41 2019-08-28 07:36:41 Telemedici ne Visit Azeem [facility] Resident Ramesh Santizo [facility] 1.2.840.114 350.1.13.10 4.2.7.2.686 [id number] [facility] 2019-08-21 00:00:00 2019-08-21 00:00:00 [facility] 1.2.840.114 350.1.13.10 4.2.7.2.686 [id number] [facility] 2019-08-17 00:00:00 2019-08-17 00:00:00 Letter (Out) Barak Moncada Alberto [facility] 1.840.114 350.1.13.10 4.2.7.2.686 [id number] [facility] 2019-08-01 00:00:00 2019-08-01 00:00:00 Telephone [facility] 1.2.840.114 350.1.13.10 4.2.7.2.686 [id number] [facility] 2019-07-19 09:03:18 2019-07-19 09:54:08 Office Visit Azeem [facility] Resident Vicky Hawley [facility] 1.840.114 350.1.13.10 4.2.7.2.686 [id number] [facility] 2019-07-19 09:00:00 2019-07-19 09:00:00 Outpatient R [facility] [id number] [facility] 2019-07-17 00:00:00 2019-07-17 00:00:00 Orders Only Doctor Unassigned, [place]lier [facility] 1.840.114 350.1.13.10 4.2.7.2.686 [id number] [facility] 2019-07-16 00:00:00 2019-07-16 00:00:00 Transition of Care Carla Locke 1.840.114 350.1.13.10 4.2.7.2.686 [id number] [facility] 2019-07-10 05:11:29 2019-07-13 11:39:00 Hospital Encounter Wilfredo, Ashu L [facility] 1.2.840.114 350.1.13.10 4.2.7.2.686 [id number] [facility] 2019-07-10 05:11:29 2019-07-13 11:39:00 Inpatient R ASHU VILLALOBOS [facility] HEALTH EDUCATION DIRECTOR [id number] [facility] 2019-07-10 00:00:00 2019-07-10 00:00:00 Telephone Ernesto Villalobosry [facility] 1.2.840.114 350.1.13.10 4.2.7.2.686 [id number] [facility] 2019-07-05 00:00:00 2019-07-05 00:00:00 Orders Only Doctor Unassigned, Parlier [facility] 1.2.840.114 350.1.13.10 4.2.7.2.686 [id number] [facility] 2019-06-07 10:17:23 2019-06-07 12:13:33 Office Visit Malone, [facility] Resident Ashu Villalobos [facility] 1.2.840.114 350.1.13.10 4.2.7.2.686 [id number] [facility] 2019-04-18 00:00:00 2019-04-18 00:00:00 Orders Only Doctor Unassigned, Parlier [facility] 1.2.840.114 350.1.13.10 4.2.7.2.686 [id number] [facility]
--- NOTE | 2024-03-29 17:02 | EDPHYS ---
Physician Documentation [facility] Name: Florentino Chavez Age: 48 yrs Sex: Female : 1975 Arrival Date: 03/29/2024 Time: 16:09 Bed 11 Private MD: ED Physician Jonathon Somers HPI: 03/29 16:41 This 48 yrs old Black Female presents to ER via Ambulatory with complaints of Foot sb4 Injury. 16:41 Injured her left foot 5 days ago by accidentally kicking the couch. States that she has sb4 had pain since, worse with ambulation. States that she went to the judo instructor today for evaluation of bilateral bunion removal, had x-rays done, and was told she had 2 fractures in her left foot. Doctor told her he did not have any materials to splint or cast and told her to come to the ED. 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 - Infectious Disease History:: Denies. - Social history:: Smoking status: Patient denies any tobacco usage or history of. Patient/guardian denies using alcohol. ROS: 16:41 Constitutional: Negative for fever, chills, and weight loss, sb4 16:41 MS/extremity: Positive for injury or acute deformity, pain, of the left foot, 16:41 All other systems are negative, Exam: 16:41 Constitutional: This is a well developed, well nourished patient who is awake, alert, sb4 and in no acute distress. Head/Face: Normocephalic, atraumatic. Eyes: Extra-ocular motions intact. Periorbital areas with no swelling, redness, or edema. ENT: Mucous membranes moist. 16:41 Musculoskeletal/extremity: Circulation is intact in all extremities. Pulses: are normal with no appreciated deficits, Sensation intact. pain with palpation second and third metatarsal. Vital Signs: 16:40 BP 119 / 70; Pulse 69; Resp 17; Temp 97(TE); Pulse Ox 100% on R/A; MAP 85 mmHg; Weight tm6 57.61 kg; Height 5 ft. 2 in. ; Pain 10/10; 17:34 Pain 3/10; me1 16:40 Body Mass Index 23.23 (57.61 kg, 157.48 cm) tm6 16:40 Pain Scale: Adult tm6 17:34 Pain Scale: Adult me1 MDM: 16:42 Medical Screening Exam initiated sb4 17:01 Data reviewed: vital signs, nurses notes, radiologic studies, and as a result, I will sb4 discharge patient. Counseling: I had a detailed discussion with the patient and/or guardian regarding the historical points, exam findings, and any diagnostic results supporting the discharge/admit diagnosis, radiology results, the need for outpatient follow up, a judo instructor, to return to the emergency department if symptoms worsen or persist or if there are any questions or concerns that arise at home. 17:08 Independent interpretation of the following test(s) in the Emergency Department X-Ray: sb4 My interpretation is My interpretation of the left foot x-ray images is no acute fracture. 03/29 16:41 Order name: Foot Left 3 View XRAY; Complete Time: 02:12 sb4 03/29 17:02 Order name: Walking boot; Complete Time: 17:19 sb4 Administered Medications: 17:19 Drug: HYDROcodone-acetaminophen PO 5 mg-325 mg 1 tabs PO once Route: PO; me1 17:34 Follow up: Pain 3/10 Adult; Response: No adverse reaction; Pain is decreased me1 Disposition: 16:52 I was immediately available on-site in the Emergency Department for consultation in the ms3 care of the patient. Disposition Summary: 03/29/24 17:01 Discharge Ordered Notes: Location: Home sb4 Problem: an ongoing problem sb4 Symptoms: have improved sb4 Condition: Stable sb4 Diagnosis - Pain in left foot sb4 Followup: sb4 - With: Private Physician - When: 1 week - Reason: Recheck today's complaints, Re-evaluation by your physician Discharge Instructions: - Discharge Summary Sheet sb4 - Foot Pain sb4 Forms: - Patient Portal Instructions sb4 - Leadership Thank You Letter sb4 Prescriptions: - meloxicam 7.5 mg Oral tablet - take 1 tablet ORAL route daily; 14 tablet; Refills: 0, Product Selection sb4 Permitted Signatures: Dispatcher [employer], Jonathon, DO ms3 Venus Pagan PA-C PAMinna sb4 Lisa Harrison, RN RN me1 Danay Morales RN RN tm6 Corrections: (The following items were deleted from the chart) 16:41 16:41 Foot Left 3 View+RAD.RAD.BRZ ordered. EDMS EDMS
--- NOTE | 2024-03-29 17:02 | ER ---
Nurse's Notes [facility] Name: Florentino Chavez Age: 48 yrs Sex: Female : 1975 Arrival Date: 03/29/2024 Time: 16:09 Bed 11 Private MD: Diagnosis: Pain in left foot Presentation: 03/29 16:38 Chief complaint: Patient states: about 5 days ago I hit my left foot on the couch. The tm6 pain is still bad. Coronavirus screen: Client denies travel out of the [place] in the last 14 days. Ebola Screen: Patient negative for fever greater than or equal to 101.5 degrees Fahrenheit, and additional compatible Ebola Virus Disease symptoms Patient denies exposure to infectious person. Patient denies travel to an Ebola-affected area in the 21 days before illness onset. No symptoms or risks identified at this time. Initial Sepsis Screen:. Risk Assessment: Do you want to hurt yourself or someone else? Patient reports no desire to harm self or others. Onset of symptoms was March 24, 2024. 16:38 Method Of Arrival: Ambulatory tm6 16:38 Acuity: MARITA 4 tm6 17:08 Initial Sepsis Screen: Does the patient meet any 2 criteria? No. Patient's initial me1 sepsis screen is negative. Does the patient have a suspected source of infection? No. Patient's initial sepsis screen is negative. Triage Assessment: 16:38 General: Appears in no apparent distress. Behavior is calm, cooperative. Pain: tm6 Complains of pain in left foot Pain currently is 10 out of 10 on a pain scale. EENT: No signs and/or symptoms were reported regarding the EENT system. Neuro: Level of Consciousness is awake, alert, obeys commands, Oriented to person, place, time, situation. Cardiovascular: Patient's skin is warm and dry. Respiratory: Airway is patent Respiratory effort is even, unlabored, Respiratory pattern is regular, symmetrical. GI: No signs and/or symptoms were reported involving the gastrointestinal system. Abdomen is flat, non-distended. : No signs and/or symptoms were reported regarding the genitourinary system. Derm: No signs and/or symptoms reported regarding the dermatologic system. Musculoskeletal: Reports pain in left foot since 5 days ago. Pain is 10 out of 10 on a pain scale. 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 - Infectious Disease History:: Denies. - Social history:: Smoking status: Patient denies any tobacco usage or history of. Patient/guardian denies using alcohol. Screenin:00 [facility] ED Fall Risk Assessment (Adult) History of falling in the last 3 months, me1 including since admission No falls in past 3 months (0 pts) Confusion or Disorientation No (0 pts) Intoxicated or Sedated No (0 pts) Impaired Gait Yes (1 pt) Mobility Assist Device Used No (0 pt) Altered Elimination No (0 pt) Score/Fall Risk Level 0 - 2 = Low Risk Maintained a safe environment, Provided non-skid footwear, Hourly rounding (assess needs \T\ fall precautionary measures) done. Abuse screen: Denies threats or abuse. Nutritional screening: No deficits noted. Tuberculosis screening: No symptoms or risk factors identified. Assessment: 17:00 General: Appears uncomfortable, well groomed, well developed, well nourished, Behavior me1 is calm, cooperative, appropriate for age, Reports about 5 days ago I hit my left foot on the couch. The pain is still bad. Pain: Complains of pain in dorsum of left foot Pain does not radiate. Pain currently is 9 out of 10 on a pain scale. Quality of pain is described as aching, sharp, Pain began suddenly, Is continuous. Neuro: Level of Consciousness is awake, alert, obeys commands, Oriented to person, place, time, situation, Appropriate for age. Cardiovascular: Patient's skin is warm and dry. Respiratory: Airway is patent Trachea midline Respiratory effort is even, unlabored, Respiratory pattern is regular, symmetrical. GI: No signs and/or symptoms were reported involving the gastrointestinal system. : No signs and/or symptoms were reported regarding the genitourinary system. EENT: No signs and/or symptoms were reported regarding the EENT system. Derm: Skin is intact, is healthy with good turgor, Skin is pink, warm \T\ dry. Musculoskeletal: Reports pain in dorsum of left foot. Injury Description: about 5 days ago I hit my left foot on the couch. The pain is still bad. Vital Signs: 16:40 BP 119 / 70; Pulse 69; Resp 17; Temp 97(TE); Pulse Ox 100% on R/A; MAP 85 mmHg; Weight tm6 57.61 kg; Height 5 ft. 2 in. ; Pain 10/10; 17:34 Pain 3/10; me1 16:40 Body Mass Index 23.23 (57.61 kg, 157.48 cm) tm6 16:40 Pain Scale: Adult tm6 17:34 Pain Scale: Adult me1 ED Course: 16:12 Patient arrived in ED. mr 16:13 Venus Pagan PA-C is PHCP. sb4 16:13 Jonathon Somers DO is Attending Physician. sb4 16:38 Triage completed. tm6 16:38 Arm band placed on right wrist. tm6 16:43 Allergy band placed. tm6 16:56 Foot Left 3 View XRAY In Process Unspecified. EDWY 17:00 Provided Education on: POC. Verbalized understanding.. me1 17:00 No provider procedures requiring assistance completed. Patient did not have IV access me1 during this emergency room visit. 17:05 Patient placed in an exam room, on a stretcher. ll1 17:08 Lisa Harrison, RN is Primary Nurse. me1 Administered Medications: 17:19 Drug: HYDROcodone-acetaminophen PO 5 mg-325 mg 1 tabs PO once Route: PO; me1 17:34 Follow up: Pain 3/10 Adult; Response: No adverse reaction; Pain is decreased me1 Medication: 17:00 VIS not applicable for this client. me1 Outcome: 17:01 Discharge ordered by . sb4 17:30 Discharged to home ambulatory, me1 17:30 Condition: stable 17:30 Discharge instructions given to patient, Instructed on discharge instructions, follow up and referral plans. medication usage, Demonstrated understanding of instructions, follow-up care, medications, Prescriptions given X 1, 17:34 Patient left the ED. me1 Signatures: Dispatcher [employer] [facility] FajardoSlime, Reg Reg mr Sushant Hawley RN RN 1 Venus Pagan PA-C PA-C sb4 Lisa Harrison, RN RN me1 Danay Morales RN RN tm6 Corrections: (The following items were deleted from the chart) 17: 16:38 Chief complaint: Patient states: about 5 days ago I hit my left foot on the me1 couch. The pain is still bad. tm6
[2024-03-29] MEDS ORDERED: HYDROCODONE/APAP 5/325 MG TAB ONE (17:06)
[2024-03-29 17:59] VITALS: BP 119/70; TEMP 97; O2SAT 100
--- NOTE | 2024-03-29 19:11 | RAD REPORT ---
EXAMINATION: XR Foot Left 3 View CLINICAL INDICATION: Female, 48 years old. [facility] Bed: TECHNIQUE: 3 view radiographs of the left foot were obtained. COMPARISON: No prior exam. FINDINGS: No evidence of fracture or dislocation. Bipartite appearance of the medial first digit sesa moid rather than a fracture. Normal alignment. No evidence of arthropathy or other focal bone lesion. Soft tissues are unremarkable. No soft tissue swelling. Degenerative changes at the talonavic ular articulation with osseous remodeling superiorly. IMPRESSION: No acute or significant abnormalities.
== END 2024-03-29 17:34 | disposition home or self-care (01) ==
LOC: ER 16:09
DX: M79.672 Pain in left foot (principal)
CPT/HCPCS: 99283

== ENCOUNTER 2024-04-25 07:57 | Emergency (ER) | payer OTHER ==
--- OUTSIDE RECORDS SUMMARY | 2024-04-25 08:01 | XMS REPORT | Continuity of Care Document ---
Author Name Unknown Address [address] [facility] [address] [place] [address] [facility] thconnect Address [address] [facility] [address] [place] [address] Care Team Providers Care Respiratory Manager Name Role Phone Donna Osei Primary Care Physicia n LIO OCONNELL Attending Clinician Unavailable LOI OCONNELL Attending Clinician Unavailable Lio Oconnell DO Attending Clinician [phone] PEGGY FITZGERALD Attending Clinician Unavailable Dionne Poole MD Attending Clinician [phone] DIONNE POOLE Attending Clinician Unavailabl e Doctor Unassigned, [place] Attending Clinician U MANDIE Tai Attending Clinician UnavailMandie Bryan MD Attending Clinician [phone] Crissy Banks Attending Clinician [phone] Donna Osei Attending Clinician + DONNA MAYORGA Attending Clinician Unavail able Guru Garciaa R Attending Clinician ARANZA ZHOU Attending Clinician Unavailab Bernstein, [facility] Resident Attending Clinician Unavailab Hiro BERMEO, Ramesh Attending Clinician [phone] Ignacio CROSS, Toshia Attending Clinician [phone] Tian BERMEO, Barak Rendon Attending Clinic radha Vicky Hawley MD Attending Clinician [phone] Cornelia CHENG, Carla Paez Attending Clinician [phone] Wilfredo BERMEO, Ashu Mathew Attending Clinician [phone] ASHU VILLALOBOS Attending Clinician Unavailable Wilfredo BERMEO, Ashu Mathew Admitting Clinician [phone] ASHU VILLALOBOS Admitting Clinician Unavailable Payers Payer Name Policy Type Policy Number Effective Date Expirati on Date Source [facility] [id number] 2019 00:00:00 Problems Condition Name Condition Details Condition Category Status Onset Date Resolution Date Last Treatment Date Treating Clinician Comments Source Lump or mass in breast Lump or mass in breast Disease Active 8-05 00:00: 00 [facility] S/P hysterecto my S/P hysterecto my Disease Active 2-18 00:00: 00 [facility] Pelvic pain Pelvic pain Disease Active 1-16 00:00: 00 Overview: Formattin g of this note might be different from the original. Added automatic ally from request for surgery [id number] [facility] Vaginal discharge Vaginal discharge Disease Active 2018-05 1-07 00:00: 00 [facility] Well woman exam Well woman exam Disease Active 4-30 00:00: 00 [facility] Depression Depression Disease Active 07-31 00:00: 00 [facility] History of female sterilizat ion History of female sterilizat ion Disease Active 07-31 00:00: 00 Overview: Formattin g of this note might be different from the original. Essure [facility] Contracept augustus management Contracept augustus management Disease Active 07-31 00:00: 00 [facility] Essential hypertensi on Essential hypertensi on Disease Active 11-27 00:00: 00 Overview: Formattin g of this note might be different from the original. ICD10 Diagnosis Term Leasing Agent Utility [facility] Encounter for sterilizat ion Encounter for sterilizat ion Disease Resolve d 11-27 00:00: 00 2015-08-01 00:00:00 2021-12-06 00:31:05 [facility] Tobacco use disorder Tobacco use disorder Disease Resolve d 11-27 00:00: 00 2015-08-01 00:00:00 2015-08-01 19:33:35 [facility] Benign essential hypertensi on, with delivery, with current complicati on Benign essential hypertensi on, with delivery, with current complicati on Disease Resolve d 2012-05 00:00: 00 2015-08-01 00:00:00 2015-08-01 19:33:24 [facility] Depo-Prove ra contracept augustus status Depo-Prove ra contracept augustus status Disease Resolve d 2012-05 00:00: 00 2015-08-01 00:00:00 2021-12-06 00:27:58 [facility] Immune to rubella Immune to rubella Disease Resolve d 11-08 00:00: 00 2015-08-01 00:00:00 2015-08-01 19:33:14 [facility] Anemia of mother in , condition Anemia of mother in , condition Disease Resolve d 2012-05 00:00: 00 2013-07-03 00:00:00 2013-07-03 18:47:09 [facility] Routine follow-up Routine follow-up Disease Resolve d 2012-05 00:00: 00 2013-06-05 00:00:00 2013-06-05 17:00:51 [facility] Backache Backache Disease Resolve d 2012-05 00:00: 00 2013-05-08 00:00:00 2021-12-06 00:27:58 [facility] Pain at surgical incision Pain at surgical incision Disease Resolve d 2012-05 00:00: 00 2013-05-08 00:00:00 2013-05-08 14:22:06 [facility] Post-dates Post-dates Disease Resolve d 2012-05 2-03 00:00: 00 2013-05-03 00:00:00 2013-05-03 13:39:43 [facility] GBS (group B Streptococ cus carrier), +RV culture, currently GBS (group B Streptococ cus carrier), +RV culture, currently Disease Resolve d 2012-05 0-25 00:00: 00 2013-05-03 00:00:00 2021-12-06 00:27:11 [facility] Backache Backache Disease Resolve d 2012-05 0- 00:00: 00 2013-05-03 00:00:00 2021-12-06 00:27:05 [facility] Flu vaccine need Flu vaccine need Disease Resolve d 02-06 00:00: 00 2013-05-03 00:00:00 2021-12-06 00:26:31 [facility] Tdap 02/15/2012 Tdap 02/15/2012 Disease Resolve d 6-20 00:00: 00 2013-05-03 00:00:00 2013-05-03 13:39:55 [facility] Immune to varicella Immune to varicella Disease Resolve d 6-19 00:00: 00 2013-05-03 00:00:00 2013-05-03 13:39:51 [facility] Nausea Nausea Disease Resolve d 5-15 00:00: 00 2013-05-03 00:00:00 2013-05-03 13:39:47 [facility] High-risk High-risk Disease Resolve d 4-15 00:00: 00 2013-05-03 00:00:00 2021-12-06 00:24:00 [facility] AMA (advanced maternal age) multigravi da 35+ AMA (advanced maternal age) multigravi da 35+ Disease Resolve d 09-04 00:00: 00 2013-05-03 00:00:00 2021-12-06 00:24:00 [facility] Salpingo-o ophoritis Salpingo-o ophoritis Disease Resolve d 09-04 00:00: 00 2013-05-03 00:00:00 2021-12-06 00:24:00 [facility] Allergies, Adverse Reactions, Alerts Allergy Name Allergy Type Status Severity Reaction(s) Onset Date Inactive Date Treating Clinician Comments Source SULFA (SULFONA MIDE ANTIBIOT ICS) Drug Class Active Unknown-Cmnt 12-15 00:00: 00 [facility] Sulfa (Sulfona mide Antibiot ics) Propensi ty to adverse reaction s Active Unknown - See comments 12-15 00:00: 00 [facility] Sulfa (Sulfona mide Antibiot ics) Propensi ty to adverse reaction s Active Unknown - See comments 12-15 00:00: 00 [facility] PENICILL INS Drug Class Active Rash 09-04 00:00: 00 [facility] Penicill ins Propensi ty to adverse reaction s Active Rash 09-04 00:00: 00 [facility] Penicill ins Propensi ty to adverse reaction s Active Rash 09-04 00:00: 00 [facility] Penicill ins Propensi ty to adverse reaction s Active Rash 09-04 00:00: 00 [facility] Social History Social Habit Start Date Stop Date Quantity Comments Source History of tobacco use 2012-07-21 00:00:00 Cigarette Smoker [facility] Alcoholic beverage intake 2023-06-14 00:00:00 2023-06-14 00:00:00 Current non-drinker of alcohol (finding) [facility] Exposure to SARS-CoV-2 (event) 2021-04-01 00:00:00 2021-05-01 15:14:00 Not sure [facility] History of Social function 2021-01-21 00:00:00 2021-01-21 00:00:00 [facility] Cigarette pack-years 2021-01-21 00:00:00 2021-01-21 00:00:00 [facility] Cigarettes smoked current (pack per day) - Reported 2021-01-21 00:00:00 2021-01-21 00:00:00 [facility] Tobacco use and exposure 2021-01-21 00:00:00 2021-01-21 00:00:00 User of smokeless tobacco [facility] Alcohol intake 2019-12-26 00:00:00 2019-12-26 00:00:00 Current non-drinker of alcohol (finding) [facility] Alcohol Comment 2018-08-28 00:00:00 2018-08-28 00:00:00 Socially [facility] Sex assigned at 1975 00:00:00 1975 00:00:00 [facility] Smoking Status Start Date Stop Date Source Occasional tobacco smoker 2021-01-21 00:00:00 [facility] Smokes tobacco daily 2018-08-28 00:00:00 [facility] Medications Ordered Medication Name Filled Medication Name Start Date Stop Date Current Medication? Ordering Clinician Indication Dosage Frequency Signature (SIG) Comments Components Source buPROPion 75 mg tablet 01-21 13:20: 20 Yes 75mg Take 75 mg by mouth daily. [facility] HYDROcodone -acetaminop hen 5-325 mg tablet 07-13 00:00: 00 Yes [id number] 1{tbl} Take 1 tablet by mouth every 6 (six) hours as needed for Pain (scale 7-10). [facility] ibuprofen 600 mg tablet 07-13 00:00: 00 Yes [id number] 600mg Take 1 tablet by mouth every 6 (six) hours as needed for Pain (scale 4-6). [facility] cyclobenzap rine 10 mg tablet 07-13 00:00: 00 Yes [id number] 10mg Take 1 tablet by mouth 3 (three) times daily. [facility] hydrOXYzine 25 mg tablet 05-24 00:00: 00 Yes TK 1 T PO Q 8 H PRN [facility] ALPRAZolam 0.5 mg tablet 05-24 00:00: 00 Yes TK 1 T PO QHS [facility] gabapentin 800 mg tablet 05-24 00:00: 00 Yes TK 1 T PO BID [facility] amLODIPine 10 mg tablet 05-24 00:00: 00 Yes TK 1 T PO ONCE A DAY [facility] FLUoxetine (PROZAC) 10 mg capsule 07-31 00:00: 00 Yes [id number] 10mg Take 1 Cap by mouth daily. [facility] hydrochloro thiazide (ESIDRIX) 25 mg tablet 07-31 00:00: 00 Yes [id number] 25mg Take 1 Tab by mouth daily. [facility] Immunizations Ordered Immunization Name Filled Immunization Name Date Status Comments Source Influenza Virus Vaccine 2013-02-06 00:00:00 Completed [facility] Influenza Virus Vaccine 2013-02-06 00:00:00 Completed [facility] Influenza Virus Vaccine 2013-02-06 00:00:00 Completed [facility] Influenza Virus Vaccine 2013-02-06 00:00:00 Completed [facility] TDAP 2013-01-19 00:00:00 Completed [facility] TDAP 2013-01-19 00:00:00 Completed [facility] TDAP 2013-01-19 00:00:00 Completed [facility] TDAP 2013-01-19 00:00:00 Completed [facility] Varicella (varivax)(chicken pox) 2012-09-01 00:00:00 Completed [facility] Varicella (varivax)(chicken pox) 2012-09-01 00:00:00 Completed [facility] Varicella (varivax)(chicken pox) 2012-09-01 00:00:00 Completed [facility] Varicella (varivax)(chicken pox) 2012-09-01 00:00:00 Completed Rubella 2012-02-15 00:00:00 Completed [facility] TDAP 2012-02-15 00:00:00 Completed [facility] Rubella 2012-02-15 00:00:00 Completed [facility] TDAP 2012-02-15 00:00:00 Completed [facility] Rubella 2012-02-15 00:00:00 Completed [facility] TDAP 2012-02-15 00:00:00 Completed [facility] Rubella 2012-02-15 00:00:00 Completed TDAP 2012-02-15 00:00:00 Completed Td 2000-05-23 00:00:00 Completed [facility] Td 2000-05-23 00:00:00 Completed [facility] Td 2000-05-23 00:00:00 Completed [facility] TD, NOS 2000-05-23 00:00:00 Completed TD, NOS Unknown Completed [facility] Rubella Unknown Completed [facility] TDAP Unknown Completed [facility] Varicella (varivax)(chicken pox) Unknown Completed [facility] Influenza Virus Vaccine Unknown Completed [facility] Vital Signs Vital Name Observation Time Observation Value Comments S ource Systolic blood pressure 2024-04-24 17:32:00 128 mm[Hg] [facility] Diastolic blood pressure 2024-04-24 17:32:00 87 mm[Hg] [facility] Heart rate 2024-04-24 17:32:00 63 /min [facility] Body temperature 2024-04-24 17:32:00 36.89 Sarah [facility] Respiratory rate 2024-04-24 17:32:00 20 /min [facility] Body height 2024-04-24 17:32:00 157.5 cm [facility] Body weight 2024-04-24 17:32:00 58.968 kg [facility] BMI 2024-04-24 17:32:00 23.78 kg/m2 [facility] Oxygen saturation in Arterial blood by Pulse oximetry 2024-04-24 17:32:00 100 /min [facility] Systolic blood pressure 2021-05-01 21:15:00 117 mm[Hg] [facility] Diastolic blood pressure 2021-05-01 21:15:00 85 mm[Hg] [facility] Heart rate 2021-05-01 21:15:00 84 /min [facility] Body temperature 2021-05-01 21:15:00 36.56 Sarah [facility] Respiratory rate 2021-05-01 21:15:00 18 /min [facility] Body height 2021-05-01 21:15:00 157.5 cm [facility] Body weight 2021-05-01 21:15:00 56.019 kg [facility] BMI 2021-05-01 21:15:00 22.59 kg/m2 [facility] Oxygen saturation in Arterial blood by Pulse oximetry 2021-05-01 21:15:00 99 /min [facility] Procedures Procedure Date / Time Performed Performing Clinician Source PATIENT FINANCIAL RESPONSIBILITY - ALL FORMS 2021-05-01 06:01:00 Doctor Unassigned, [place] [facility] Encounters Start Date/Time End Date/Time Encounter Type Admission Type Attending [facility] Care Facility Care Department Encounter ID Source 2024-04-24 11:33:00 2024-04-24 13:14:00 Emergency LIO VILLASEÑOR PHILLIP [facility] ERT [id number] [facility] 2024-04-24 11:33:00 2024-04-24 13:14:00 Emergency Lio Oconnell [facility] 1..840.114 350.1.13.10 4.2.7.2.686 [id number] [facility] 2021-08-04 13:00:00 2021-08-04 13:00:00 Outpatient PEGGY TERAN [facility] [id number] [facility] 2021-05-29 00:00:00 2021-05-29 00:00:00 Telephone Dionne Poole [facility] 1..840.114 350.1.13.10 4.2.7.2.686 [id number] [facility] 2021-05-01 15:04:03 2021-05-01 16:02:40 Office Visit Dionne Poole [facility] 1..840.114 350.1.13.10 4.2.7.2.686 [id number] [facility] 2021-05-01 15:00:00 2021-05-01 16:02:40 Outpatient DIONNE DELA CRUZ [facility] [id number] [facility] 2021-05-01 15:00:00 2021-05-01 16:02:40 Outpatient DIONNE DELA CRUZ [facility] [id number] [facility] 2021-05-01 00:00:00 2021-05-01 00:00:00 Orders Only Doctor Unassigned, [place] [facility] 1..840.114 350.1.13.10 4.2.7.2.686 [id number] [facility] 2021-04-21 14:00:00 2021-04-21 14:33:31 Outpatient R MANDIE ATKINS [facility] [id number] [facility] 2021-04-21 14:00:00 2021-04-21 14:33:31 Outpatient R MANDIE ATKINS [facility] [id number] [facility] 2021-04-21 14:00:00 2021-04-21 14:33:31 Outpatient R MANDIE ATKINS [facility] [id number] [facility] 2021-04-21 13:59:41 2021-04-21 14:33:31 Office Visit Mandie Atkins [facility] 1..840.114 350.1.13.10 4.2.7.2.686 [id number] [facility] 2021-04-08 14:30:00 2021-04-08 14:30:00 Outpatient R MANDIE ATKINS [facility] [id number] [facility] 2021-04-07 14:07:49 2021-04-07 14:47:42 Office Visit Mandie Atkins [facility] 1..114 350.1.13.10 4.2.7.2.686 [id number] [facility] 2021-04-07 14:00:00 2021-04-07 14:47:42 Outpatient R SYLWIATARIQ MANDIE [facility] [id number] [facility] 2021-04-01 00:00:00 2021-04-01 00:00:00 Telephone Crissy Sawyer [facility] RESPIRATORY MANAGER [facility] 1.0.114 350.1.13.10 4.2.7.2.686 [id number] [facility] 2021-03-31 12:26:13 2021-03-31 23:59:00 Hospital Encounter Donna Mayorga [facility] 1..114 350.1.13.10 4.2.7.2.686 [id number] [facility] 2021-03-31 12:25:33 2021-03-31 12:25:33 Outpatient R DONNA MAYORGA [facility] [id number] [facility] 2021-03-31 12:25:33 2021-03-31 12:25:33 Hospital Encounter Donna Mayorga [facility] 1..114 350.1.13.10 4.2.7.2.686 [id number] [facility] 2021-03-31 00:00:00 2021-03-31 00:00:00 Orders Only Doctor Unassigned, [place] [facility] 1.2.114 350.1.13.10 4.2.7.2.686 [id number] [facility] 2021-02-24 14:00:00 2021-02-24 14:00:00 Outpatient R DONNA MAYORGA [facility] [id number] [facility] 2021-01-27 06:37:08 2021-01-27 23:59:00 Hospital Encounter Donna Mayorga [facility] 1.114 350.1.13.10 4.2.7.2.686 [id number] [facility] 2021-01-27 00:00:00 2021-01-27 00:00:00 Outpatient R DONNA MAYORGA [facility] [id number] [facility] 2021-01-21 12:55:05 2021-01-21 14:37:00 Office Visit Donna Mayorga Roshunda R [facility] RESPIRATORY MANAGER [facility] 1.114 350.1.13.10 4.2.7.2.686 [id number] [facility] 2021-01-21 13:15:00 2021-01-21 13:15:00 Outpatient R ARANZA ZHOU [facility] [id number] [facility] 2021-01-21 00:00:00 2021-01-21 00:00:00 Orders Only Doctor Unassigned, [place] [facility] 1.114 350.1.13.10 4.2.7.2.686 [id number] [facility] 2021-01-21 00:00:00 2021-01-21 00:00:00 Orders Only Doctor Unassigned, [place] [facility] 1..114 350.1.13.10 4.2.7.2.686 [id number] [facility] 2020-04-22 00:00:00 2020-04-22 00:00:00 Patient Secure Msg Doctor Unassigned, [place] [facility] 1..114 350.1.13.10 4.2.7.2.686 [id number] [facility] 2020-03-07 00:00:00 2020-03-07 00:00:00 Telephone Donna Mayorga [facility] RESPIRATORY MANAGER [facility] 1.2.840.114 350.1.13.10 4.2.7.2.686 [id number] 2020-03-07 00:00:00 2020-03-07 00:00:00 Telephone Donna Mayorga [facility] RESPIRATORY MANAGER [facility] 1.2.840.114 350.1.13.10 4.2.7.2.686 [id number] [facility] 2020-03-06 12:30:00 2020-03-06 23:59:00 Hospital Encounter Donna Mayorga [facility] 1.2840.114 350.1.13.10 4.2.7.2.686 [id number] [facility] 2020-03-06 00:00:00 2020-03-06 00:00:00 Outpatient R DONNA MAYORGA [facility] [id number] [facility] 2020-02-11 00:00:00 2020-02-11 00:00:00 Telephone Donna Mayorga [facility] RESPIRATORY MANAGER [facility] 1.2840.114 350.1.13.10 4.2.7.2.686 [id number] [facility] 2020-02-06 06:28:49 2020-02-06 23:59:00 Hospital Encounter Donna Mayorga [facility] 1.2.840.114 350.1.13.10 4.2.7.2.686 [id number] [facility] 2020-02-06 00:00:00 2020-02-06 00:00:00 Outpatient R DONNA MAYORGA [facility] [id number] [facility] 2020-01-02 00:00:00 2020-01-02 00:00:00 Tele[facility] 1.2.840.114 350.1.13.10 4.2.7.2.686 [id number] [facility] 2019-12-26 13:26:38 2019-12-26 14:33:37 Office Visit FelicianovijayaerickDonna [facility] RESPIRATORY MANAGER [facility] 1..840.114 350.1.13.10 4.2.7.2.686 [id number] [facility] 2019-12-26 13:15:00 2019-12-26 13:15:00 Outpatient R LUCIA DONNA [facility] [id number] [facility] 2019-12-17 14:15:00 2019-12-17 14:15:00 Outpatient R FELICIANOHERNANDONNA [facility] [id number] [facility] 2019-12-12 14:15:00 2019-12-12 14:15:00 Outpatient R AKINVIJAYAERICK DONNA [facility] [id number] [facility] 2019-12-03 13:15:00 2019-12-03 13:15:00 Outpatient R LUCIA DONNA [facility] [id number] [facility] 2019-11-16 10:00:00 2019-11-16 10:00:00 Outpatient R AKINSIERICK DONNA [facility] [id number] [facility] 2019-11-14 10:00:00 2019-11-14 10:00:00 Outpatient R AKINSIERICK DONNA [facility] [id number] [facility] 2019-08-28 13:00:00 2019-08-28 13:00:00 Outpatient R [facility] [id number] [facility] 2019-08-28 07:21:41 2019-08-28 07:36:41 Telemedici ne Visit [facility] Resident Ramesh Santizo [facility] 1.840.114 350.1.13.10 4.2.7.2.686 [id number] [facility] 2019-08-21 00:00:00 2019-08-21 00:00:[address] [facility] 1.2840.114 350.1.13.10 4.2.7.2.686 [id number] [facility] 2019-08-17 00:00:00 2019-08-17 00:00:00 Letter (Out) Barak Moncada [facility] 1.2.840.114 350.1.13.10 4.2.7.2.686 [id number] [facility] 2019-08-01 00:00:00 2019-08-01 00:00:[address] [facility] 1.2.840.114 350.1.13.10 4.2.7.2.686 [id number] [facility] 2019-07-19 09:03:18 2019-07-19 09:54:08 Office Visit [facility] Resident Vicky Hawley [facility] 1.840.114 350.1.13.10 4.2.7.2.686 [id number] [facility] 2019-07-19 09:00:00 2019-07-19 09:00:00 Outpatient R [facility] [id number] [facility] 2019-07-17 00:00:00 2019-07-17 00:00:00 Orders Only Doctor Unassigned, [place] [facility] 1..840.114 350.1.13.10 4.2.7.2.686 [id number] [facility] 2019-07-16 00:00:00 2019-07-16 00:00:00 Transition of Care Cornelia Carla Wilson 1.2.840.114 350.1.13.10 4.2.7.2.686 [id number] [facility] 2019-07-10 05:11:29 2019-07-13 11:39:00 Hospital Encounter WilfredoAshu best [facility] 1.2840.114 350.1.13.10 4.2.7.2.686 [id number] [facility] 2019-07-10 05:11:29 2019-07-13 11:39:00 Inpatient R ASHU VILLALOBOS [facility] 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 [id number] [facility] 2019-07-10 00:00:00 2019-07-10 00:00:00 Telephone Ashu Villalobos [facility] 1.2840.114 [id number] [facility] 2019-07-05 00:00:00 2019-07-05 00:00:00 Orders Only Doctor Unassigned, [place] [id number] [facility] 2019-06-07 10:17:23 2019-06-07 12:13:33 Office Visit [facility] Resident Ashu Villalobos [facility] [id number] [facility] 2019-04-18 00:00:00 2019-04-18 00:00:00 Orders Only Doctor Unassigned, [place] [id number] [facility] Notes Date/Time Note Provider Source 2024-04-24 13:12:38 Pt left ED before treatment complete. [employer] Diana Sahu RN [facility] 2024-04-24 11:31:16 Patient reports getting something in finger 2 days ago, possibly wood. Now stating pain and swelling. Slight swelling noted to distal ring finger on left hand. No other complaints. Vitals stable. HX: denies. [employer] Alison Small RN [facility]
--- NOTE | 2024-04-25 09:06 | EDPHYS ---
Physician Documentation [facility] Name: Florentino Chavez Age: 48 yrs Sex: Female : 1975 Arrival Date: 04/25/2024 Time: 07:57 Bed 12 Private MD: ED Physician Luis Alberto Higginbotham HPI: 04/25 09:01 This 48 yrs old Black Female presents to ER via Ambulatory with complaints of Hand rn problem. 09:01 The patient or guardian reports pain. Onset: The symptoms/episode began/occurred 4 rn day(s) ago. Severity of symptoms: At their worst the symptoms were mild, in the emergency department the symptoms are unchanged. The patient has not experienced similar symptoms in the past. Patient reports swelling and pain to distal left ring finger. No trauma. Bites her nails. 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 Historical: - Allergies: 08:05 PENICILLINS; iw - PMHx: 08:05 Back pain; Hypertension; iw - PSHx: 08:05 section; Total abdominal hysterectomy; iw - Immunization history:: Adult Immunizations unknown. - Infectious Disease History:: Denies. - Family history:: not pertinent. - Hospitalizations: : No recent hospitalization is reported. - Social history:: Smoking status: unknown. ROS: 09:01 Constitutional: Negative for fever, chills, and weight loss, MS/Extremity: Positive for rn left ring finger swelling and pain Exam: 09:01 Constitutional: This is a well developed, well nourished patient who is awake, alert, rn and in no acute distress. MS/ Extremity: Small left fourth digit paronychia Vital Signs: 08:04 BP 127 / 78; Pulse 89; Resp 16; Temp 97.9; Pulse Ox 98% on R/A; Pain 8/10; iw 08:04 Pain Scale: Adult iw Procedures: 09:01 I \T\ D: Incision and drainage was performed for an abscess of the left dorsal aspect of rn distal phalanx of left ring finger Prepped with Betadine, Anesthetized with nothing. Incised with 18-gauge needle. Drained small amount purulent fluid. the patient tolerated the procedure well. MDM: 08:04 Medical Screening Exam initiated rn 09:01 Differential diagnosis: Paronychia. Data reviewed: vital signs, nurses notes, and as a rn result, I will discharge patient. Counseling: I had a detailed discussion with the patient and/or guardian regarding the historical points, exam findings, and any diagnostic results supporting the discharge/admit diagnosis, the need for outpatient follow up, to return to the emergency department if symptoms worsen or persist or if there are any questions or concerns that arise at home. Response to treatment: the patient's symptoms have markedly improved after treatment, and as a result, I will discharge patient. Special discussion: I discussed with the patient/guardian in detail that at this point there is no indication for admission to the hospital. It is understood, however, that if the symptoms persist or worsen the patient needs to return immediately for re-evaluation. Administered Medications: No medications were administered Disposition Summary: 04/25/24 09:06 Discharge Ordered Notes: Location: Home rn Problem: new rn Symptoms: have improved rn Condition: Stable rn Diagnosis - Paronychia rn Followup: rn - With: Private Physician - When: As needed - Reason: Recheck today's complaints, Re-evaluation by your physician Discharge Instructions: - Discharge Summary Sheet rn - Clarita rn Forms: - Medication Reconciliation Form rn - Antibiotic pattern grader cutter - Prescription Opioid Use rn - Patient Portal Instructions rn - Leadership Thank You Letter rn Prescriptions: - Bactrim DS 800-160 mg Oral Tablet - take 1 tablet ORAL route every 12 hours for 10 days; 20 tablet; Refills: 0, rn Product Selection Permitted Signatures: Ramandeep Sawyer RN RN Luis Alberto Stoner MD MD rn
--- NOTE | 2024-04-25 09:06 | ER ---
Nurse's Notes [facility] Name: Florentino Chavez Age: 48 yrs Sex: Female : 1975 Arrival Date: 04/25/2024 Time: 07:57 Bed 12 Private MD: Diagnosis: Paronychia Presentation: 04/25 08:04 Chief complaint: Patient states: left fourth digit feels swollen and painful X 4 days. iw Coronavirus screen: At this time, the client does not indicate any symptoms associated with coronavirus-19. Ebola Screen: No symptoms or risks identified at this time. Initial Sepsis Screen: Does the patient meet any 2 criteria? No. Patient's initial sepsis screen is negative. Does the patient have a suspected source of infection? No. Patient's initial sepsis screen is negative. Risk Assessment: Do you want to hurt yourself or someone else? Patient reports no desire to harm self or others. Onset of symptoms was April 22, 2024. 08:04 Method Of Arrival: Ambulatory iw 08:04 Acuity: MARITA 4 iw Historical: - Allergies: 08:05 PENICILLINS; iw - PMHx: 08:05 Back pain; Hypertension; iw - PSHx: 08:05 section; Total abdominal hysterectomy; iw - Immunization history:: Adult Immunizations unknown. - Infectious Disease History:: Denies. - Family history:: not pertinent. - Hospitalizations: : No recent hospitalization is reported. - Social history:: Smoking status: unknown. Screenin:40 [facility] ED Fall Risk Assessment (Adult) History of falling in the last 3 months, iw including since admission No falls in past 3 months (0 pts) Confusion or Disorientation No (0 pts) Intoxicated or Sedated No (0 pts) Impaired Gait No (0 pts) Mobility Assist Device Used No (0 pt) Altered Elimination No (0 pt) Score/Fall Risk Level 0 - 2 = Low Risk Oriented to surroundings, Maintained a safe environment. Abuse screen: Denies threats or abuse. Nutritional screening: No deficits noted. Tuberculosis screening: No symptoms or risk factors identified. Assessment: 08:30 General: Appears in no apparent distress. Behavior is calm, cooperative. Pain: iw Complains of pain in left hand. Neuro: Level of Consciousness is awake, alert, obeys commands, Oriented to person, place, time, situation, Moves all extremities. Cardiovascular: Patient's skin is warm and dry. Respiratory: Respiratory effort is. Derm: Skin is pink, warm \T\ dry. normal. Musculoskeletal: Range of motion: Swelling present in dorsal aspect of distal phalanx of left ring finger and palmar aspect of distal phalanx of left ring finger. Vital Signs: 08:04 BP 127 / 78; Pulse 89; Resp 16; Temp 97.9; Pulse Ox 98% on R/A; Pain 8/10; iw 08:04 Pain Scale: Adult iw ED Course: 07:59 Patient arrived in ED. mr 08:04 Luis Alberto Higginbotham MD is Attending Physician. rn 08:05 Triage completed. iw 08:06 Ramandeep Sawyer RN is Primary Nurse. iw 08:06 Arm band placed on. iw 09:00 Assist provider with I \T\ D: of an abscess on left fourths digit Performed by Luis Alberto Higginbotham MD Patient tolerated well. Patient did not have IV access during this emergency room visit. 09:06 Patient has correct armband on for positive identification. iw Administered Medications: No medications were administered Medication: 08:40 VIS not applicable for this client. iw Outcome: 09:06 Discharge ordered by . rn 09:10 Discharged to home ambulatory, iw 09:10 Condition: good 09:10 Discharge instructions given to patient, Instructed on discharge instructions, follow up and referral plans. medication usage, Demonstrated understanding of instructions, follow-up care, medications, Prescriptions given X 1, 09:11 Patient left the ED. iw Signatures: Fajardo Slime, Reg Reg Ramandeep Sawyer, PROSPER RN iw Luis Alberto Higginbotham MD MD airborne and air delivery specialist: (The following items were deleted from the chart) 09:06 09:00 No provider procedures requiring assistance completed. iw iw
[2024-04-25 13:27] VITALS: BP 127/78; TEMP 97.9; O2SAT 98
== END 2024-04-25 09:11 | disposition home or self-care (01) ==
LOC: ER 07:57
PROC: 0H9GXZZ Drainage of Left Hand Skin, External Approach (ICD-10-PCS; principal; 2024-04-25)
DX: L03.012 Cellulitis of left finger (principal)
CPT/HCPCS: 99283